=== PATIENT | female | born 1955 | race Caucasian/White ===

== ENCOUNTER 2024-08-12 11:36 | Inpatient (IN) | payer MEDICARE, BC, SELFPAY ==
--- NOTE | ~2024-08-12 | MR_ITS ---
EXAMINATION: MR BRAIN WITHOUT CONTRAST CLINICAL INFORMATION: Depression, recent cognitive changes,? MCI COMPARISON: None available. TECHNIQUE: MRI of the brain was obtained using routine sequences without contrast. FINDINGS: No acute intracranial hemorrhage or infarct. Scattered and confluent periventricular and deep white matter T2/FLAIR hyperintensities, nonspecific however commonly seen with small vessel ischemic disease. No midline shift or hydrocephalus. No acute extra-axial fluid collections. The osseous structures are unremarkable. The pituitary gland, pineal gland and remaining midline structures are unremarkable. No orbital pathology. The paranasal sinuses and mastoid air cells are clear. MR/MR head/brain wo con IMPRESSION: 1. No acute intracranial abnormalities. 2. Chronic microangiopathy. Electronically signed by: Dina Benton MD 08/13/2024 02:03 PM SEE
[2024-08-12 11:46] VITALS: BP 118/61; PULSE 73; RESP 16; TEMP 35.7; O2SAT 96; BMI 21.0
--- NOTE | 2024-08-12 11:54 | ECG_ITS ---
Test Reason : CLEARANCE Blood Pressure : / mmHG Vent. Rate : 063 BPM Atrial Rate : 063 BPM P-R Int : 144 ms QRS Dur : 078 ms QT Int : 368 ms P-R-T Axes : 078 036 037 degrees QTc Int : 376 ms Normal sinus rhythm Possible Left atrial enlargement Low voltage QRS Nonspecific T wave abnormality Abnormal ECG No previous ECGs available Referred By: Silvino Helm Electronically Signed By:Yung Cavazos
--- NOTE | 2024-08-12 11:57 | ED.GENADULT ---
HPI - General Adult General Chief complaint: Psychiatric Symptoms Stated complaint: depression Time Seen by Provider: 08/12/24 12:21 Source: patient Mode of arrival: ambulatory Limitations: no limitations History of Present Illness ED Provider: DR. Kohli HPI narrative: A 69-year-old female brought in by her family for further evaluation, patient normally lives home by herself in [facility] independently and functional, patient stated that taking care her own daily needs is becoming challenging now, no SI, no HI, no auditory or visual hallucination, patient is visiting her family for the holiday. 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 Patient is otherwise has no other complaints. Related Data Home Medications ?Medication ?Instructions ?Recorded ?Confirmed escitalopram oxalate 20 mg tablet 20 mg PO DAILY 08/12/24 08/12/24 levothyroxine 75 mcg tablet 75 mcg PO QAM 08/12/24 08/12/24 liothyronine 5 mcg tablet 5 mcg PO DAILY 08/12/24 08/12/24 trazodone 50 mg tablet 50 - 100 mg PO BEDTIME PRN Insomnia 08/12/24 08/12/24 Allergies Allergy/AdvReac Type Severity Reaction Status Date / Time No Known Allergies Allergy Verified 08/12/24 11:51 Review of Systems Review of Systems: All other systems are reviewed and are negative Constitutional: Reports as per HPI and Reports no additional constitutional complaints Eyes: Reports as per HPI and Reports no additional eye complaints Reports system reviewed and no additional complaints, except as documented Cardiovascular: Reports as per HPI and Reports no additional cardiovascular complaints Respiratory: Reports as per HPI and Reports no additional respiratory complaints Gastrointestinal: Reports as per HPI and Reports no additional gastrointestinal complaints Genitourinary: Reports no additional female genitourinary complaints Musculoskeletal: Reports no additional musculoskeletal complaints Skin/Breast: Reports system reviewed and no additional complaints, except as docu Psychiatric: Reports no additional psychiatric complaints Endocrine: Reports no additional endocrine complaints Hematologic/Lymphatic: Reports no additional hematologic/lymphatic complaints Allergic/Immunologic: Reports no additional allergic/immunologic complaints Reports system reviewed and no additional complaints, except as documented and Reports Abnormal speech present [facility] Social History Social History Household Members: None Housing: Apartment Do you presently have visiting nurse or other home services: No (Patient would like home services) Patient Tobacco Use Status: Never used Tobacco Smoked in Last 30 Days: No e-Cigarette/Vaping Use: Never Used Patient Interested in Nicotine Replacement: No Patient Given Instructions on How to Stop Smoking: No Second Hand Smoke Exposure: No Use of substances other than those prescribed or required for medical reasons: No Currently Displaying Signs/Symptoms of Drug Intoxication Withdrawal: No Any prior treatment program specific to substance use: No Have you been hit, kicked, punched, or otherwise hurt by someone within the past year? If so, by whom?: No Do you feel safe in your current relationship?: No Current Relationship Is there a partner from a previous relationship who is making you feel unsafe now?: No Are you made to feel afraid or neglected: No Advance Directives: No Advance Directives Information Provided: Yes Do you have thoughts of harming others: None Do you have a plan to hurt others: No Plan Recently lost weight without trying: Yes How much weight loss: 24-33 pounds Eating poorly because of decreased appetite: Yes Nutrition screen score: 6 Nutrition Risks: Poor intake 0-25% >4 days Patient : No : No Poor oral hygiene: Yes Physical Exam ED Vital Signs: Vital Signs - 24 hr 08/12/24 11:46 08/12/24 12:16 Temperature 96.3 F L Pulse Rate 73 Respiratory Rate 16 16 Blood Pressure 118/61 Pulse Oximetry 96 Oxygen Delivery Method Room Air BMI result Body Mass Index 21.0 Vital signs have been reviewed and appear to be correct. Blood pressure elevated. Heart rate normal. Respiratory rate normal. Temperature normal. Oxygen saturation normal. Appearance: Alert. Oriented X3. No acute distress. Head: Normal external exam. Normocephalic. Atraumatic. No Cano signs noted. No raccoon eyes noted Eyes: PERRLA. EOMI. Conjunctiva and sclera normal. Eyelids normal. ENT: TM's Normal. Pharynx normal. Uvula midline. Moist mucous membranes. No trismus noted. No drooling noted. No muffled voice noted. Neck: Normal inspection. Neck supple. FROM. No adenopathy. Thyroid Normal. No meningeal signs. No neck mass noted. CVS: Normal heart rate and rhythm. Heart sound normal. No murmurs noted. Pulses normal throughout. Respiratory: No respiratory distress. Painless inspiration. Breath sounds normal. No wheezes/rales/rhonchi noted. Chest nontender. No accessory muscle usage noted or decreased air movement noted. Abdomen: Soft and nontender. Bowel sounds normal in all 4 quadrants. No distention noted. No organomegaly noted. No visible injury noted. Back: No CVA tenderness. Full range of motion noted. Skin: Skin warm and dry. Normal skin color. Normal skin turgor. No rashes/lesions/lacerations noted. Extremities: No lower extremity edema. Extremities exhibit normal range of motion. Extremities nontender. Neuro: Oriented X 3. Cranial nerve exam: II-XII are grossly intact No motor deficit. No sensory deficit. Reflexes normal. Patient Orientation: Person, Place, Time and Situation, okay hygiene and grooming. Fair eye contact, attentive, no tics or tremors. Level of Consciousness: Awake, Appropriate and Alert Patient Behavior: Appropriate, Guarded, Cooperative and Anxious Mood Description: Constricted, Blunted and Apprehensive Affect Description: Constricted, Blunted and Apprehensive Patient Cognition Impaired: No Ability to Follow Directions: Excellent Speech Pattern: Clear, Appropriate and Spontaneous Speech, nonpressured, spontaneous with regular rate and rhythm, normal volume and prosody. No dysarthria. Memory Description: Intact, Immediate Intact and Short Term Intact Hallucinations: None Delusions: Not Present Thought Process: Intact Thought Content: positive for Intact, positive for Logical, denies Suicidal Ideation and denies Homicidal Ideation. Depressive Symptoms: Not present. Judgement and Insight: Limited but adequate. Course Course Course Narrative: RME: 69 yold female female history of depression anxiety presents to ED for inability to do basic life activities, memory loss, and worsening depression. Labs care team consult orders placed Reevaluation(s) Reevaluation #1: Medical cleared awaiting for care team evaluation, start the patient on physician observation. Time: 14:00 Medications Administered Generic Name Dose Route Start Last Admin Trade Name Freq PRN Reason Stop Dose Admin Escitalopram Oxalate 20 mg 08/13/24 09:00 08/13/24 08:15 Escitalopram Oxalate 20 Mg Tablet PO 20 mg DAILY ESTEBAN Administration Trazodone HCl 50 mg 08/12/24 21:49 08/12/24 22:07 Trazodone Hcl 50 Mg Tablet PO 50 mg BEDTIME [id number] PRN Administration Insomnia Discontinued Medications Generic Name Dose Route Start Last Admin Trade Name Nadia PRN Reason Stop Dose Admin Levothyroxine Sodium 75 mcg 08/12/24 16:00 08/13/24 05:54 Levothyroxine Sodium 75 Mcg Tablet PO 75 mcg DAILY@0600 ESTEBAN Administration Medical Decision Making Differential Diagnosis Differential Diagnoses: The differential diagnosis associated with the presentation includes (Electrolyte derangement, severe anemia, depression, SI, HI, hallucination, dementia.) Admission/Observation Consideration of admission/observation: Escalation of care including admission/observation considered Lab Data MDM Lab Attestation statement: I reviewed the patient's lab results. 08/12/24 12:10 08/12/24 12:10 Labs: Lab Results 08/12/24 08/12/24 Range/Units 12:10 12:37 WBC 7.8 (4.8-10.8) X10*3/uL RBC 4.74 (4.20-5.50) X10*6/uL Hgb 13.9 (12.0-16.0) g/dl Hct 40.6 (37.0-47.0) % MCV 85.7 (80.0-98.0) fL MCH 29.3 (27.0-33.0) pg MCHC 34.2 (31.0-35.0) g/dl RDW 12.3 (11.0-16.0) % Plt Count 323 (160-400) X10*3/uL MPV 10.4 (9.4-12.3) fL Immature Gran % (Auto) 0.4 (0.0-0.4) % Neut % (Auto) 60.8 (45-73) % Lymph % (Auto) 29.5 (20-40) % Stanley % (Auto) 8.3 (2-11) % Eos % (Auto) 0.4 (0-4) % Baso % (Auto) 0.6 (0-2) % Lymph # (Auto) 2.3 (1.2-4.9) X10*3/uL Stanley # (Auto) 0.7 (0.1-1.2) X10*3/uL Eos # (Auto) 0.0 (0.0-0.4) X10*3/uL Baso # (Auto) 0.1 (0.0-0.2) X10*3/uL Abs Immat Gran (auto) 0.03 (0.00-0.03) X10*3/uL Absolute Neuts (auto) 4.8 (2.0-8.3) x10*3/uL Absolute Nucleated RBC 0.000 (0.0-0.012) X10*3/uL Nucleated RBC % (auto) 0.0 (0.0-0.2) /100WBC Sodium 137 (135-145) mmol/L Potassium 3.8 (3.3-5.1) mmol/L Chloride 104 (96-108) mmol/L Carbon Dioxide 26 (22-29) mmol/L Anion Gap 11 L (12-20) BUN 12 (9-16) mg/dL Creatinine 0.74 (0.5-1.4) mg/dL Estim Creat Clear Calc 55.9 Estimated GFR > 60 Random Glucose 100 (60-115) mg/dL Calcium 8.8 (8.4-10.2) mg/dL Magnesium 2.1 (1.6-2.6) mg/dL Total Bilirubin 0.3 (0.0-1.0) mg/dL AST 19 (5-31) U/L ALT 15 (0-31) U/L Alkaline Phosphatase 72 (39-117) U/L Total Protein 6.3 L (6.5-8.0) g/dL Albumin 3.8 (3.5-5.0) g/dL TSH < 0.01 L (0.32-4.0) uIU/mL Free T4 1.36 (0.71-1.85) ng/dL Urine Color Yellow Urine Appearance Clear Urine pH 5.5 (5.0-9.0) Ur Specific [place] 1.010 (1.005-1.025) Urine Protein Negative (Neg-Trace) mg/dL Urine Glucose (UA) Negative (Negative) mg/dL Urine Ketones Negative (Negative) mg/dL Urine Blood Negative (Negative) Urine Nitrite Negative (Negative) Ur Leukocyte Esterase Trace H (Negative) Urine RBC 0-2 (0-2) /HPF Urine WBC 0-5 (0-5) /HPF Ur Squamous Epith Cells 0-2 (0-2) /HPF Urine Bacteria None Seen (None Seen) Hyaline Casts 0-2 (0-2) /LPF Urine Opiates Screen Not Detected (Not Detect) Ur Buprenorphine Scrn Not Detected (Not Detect) ng/mL Ur Oxycodone Screen Not Detected (Not Detect) ng/mL Urine Methadone Screen Not Detected (Not Detect) ng/mL Urine Fentanyl Screen Not Detected (Not Detect) Ur Barbiturates Screen Not Detected (Not Detect) Ur Phencyclidine Scrn Not Detected (Not Detect) Ur Amphetamines Screen Not Detected (Not Detect) U Benzodiazepines Scrn Not Detected (Not Detect) Urine Cocaine Screen Not Detected (Not Detect) U Marijuana (THC) Screen Not Detected (Not Detect) Ethyl Alcohol < 10 mg/dL Discharge Plan Discharge Clinical Impression: Adult failure to thrive Patient Disposition: Still a Patient Interventions: Admission Worksheet (ED) Last Done: 08/12/24 18:49 Discharge Date/Time: 08/12/24 18:49
--- OUTSIDE RECORDS SUMMARY | 2024-08-12 12:06 | XMS_ITS | Data Portability ---
Author Organization [place] - .[facility], [facility] Address [address] [place] [address] Assessment No assessment recorded. Plan of Treatment Reminders Order Date Submit Date Provider Last Modified By Organization Details Last Modified Time Details Appointments None dorota dStacey Lab rapid SARS CoV 2 Ag, QL IA, respira tory specime n 2021 022 [email or web address] [facility], [address], [place], [address], 2 08:22:14 culture , throat 2021 022 [facility], [address], [place], [address], 2 08:22:14 rapid strep group A, throat 2021 022 olchendler [facility] [place] [place], [address], [place], [address], 2 08:22:14 rapid SARS CoV 2 Ag, QL IA, respira tory specime n 2022 023 [email or web address] [place], [address], [place], [address], 3 17:59:26 influen za virus A + B + SARS-Co V-2 (COVID1 9) Ag panel, rapid IA, upper respira tory specime n 2022 023 [email or web address] [facility], [address] [place], [address], 3 17:04:10 rapid SARS CoV 2 Ag, QL IA, respira tory specime n 2022 023 [email or web address] [facility] [place], [address], [place], [address], 3 20:33:[address] referra l - List 2021 022 [email or web address] Not available 08:22:14 Procedures None recorde d. Surgeries None recorde d. Imaging None recorde d. Medication Orders Sudafed 12 Hour 120 mg tablet, extende d release 2021 023 [facility], [address] [place] [address], [id number], 3 20:20:06 cefdini r 300 mg capsule 2021 023 [facility], [address] [place] [address], [id number], 3 09:04:15 prednis one 20 mg tablet 2022 023 [email or web address] Not available 3 17:12:24 prednis one 20 mg tablet 2022 023 [facility], [address] [place] [address], [id number], 3 17:17:04 Patient TargetsNo targets recorded. Patient Instructions Encounter Date Encounter Id Patient Instructions Last Modified By Organization Details Last Modified Time 05/06/2022 [id number] A healthy lifestyle: care instructions [email or web address] Not available 05/08/2022 08:22:14 Acute Sinusitis: Care Instructions afua Not available 05/08/2022 08:22:14 Thank you for visiting [facility].There are two ways to view your lab results: : ? 1. ?? The [employer] jaya is available to all patients 18 and older in the Jaya Store and Google Play. First-time jaya users will need to create an account; please note you? ll need to select a login and password for the jaya versus just using your patient portal login credentials. Your lab results will be posted to the [employer] jaya as soon as they? re available. ? 2. ?? Via email , as soon as lab results are available. If you don? t receive an email within the estimated time frame, give our Aftercare team a call at [phone]. Sinusitis Sinusitis is an infection of the lining of the sinus cavities in your head. Sinusitis often follows a cold. It causes pain and pressure in your head and face. In most cases, sinusitis gets better on its own in 1 to 2 weeks. But some mild symptoms may last for several weeks. Sometimes antibiotics are needed. Follow-up care is a pennington part of your treatment and safety. Be sure to make and go to all appointments, and call your doctor if you are having problems. It's also a good idea to know your test results and keep a list of the medicines you take. How can you care for yourself at home? Take an borl-fyy-ejwhoye pain medicine, such as acetaminophen (Tylenol), ibuprofen (Advil, Motrin), or naproxen (Aleve). Read and follow all instructions on the label. If the doctor prescribed antibiotics, take them as directed. Do not stop taking them just because you feel better. You need to take the full course of antibiotics. Be careful when taking ykzl-vew-wocuzdf cold or flu medicines and Tylenol at the same time. Many of these medicines have acetaminophen, which is Tylenol. Read the labels to make sure that you are not taking more than the recommended dose. Too much acetaminophen (Tylenol) can be harmful. Breathe warm, moist air from a steamy shower, a hot bath, or a sink filled with hot water. Avoid cold, dry air. Using a humidifier in your home may help. Follow the directions for cleaning the machine. Use saline (saltwater) nasal washes to help keep your nasal passages open and wash out mucus and bacteria. You can buy saline nose drops at a grocery store or drugstore. Or you can make your own at home by adding 1 teaspoon of salt and 1 teaspoon of baking soda to 2 cups of distilled water. If you make your own, fill a bulb syringe with the solution, insert the tip into your nostril, and squeeze gently. Blow your nose. Put a hot, wet towel or a warm gel pack on your face 3 or 4 times a day for 5 to 10 minutes each time. Try a decongestant nasal spray like oxymetazoline (Afrin). Do not use it for more than 3 days in a row. Using it for more than 3 days can make your congestion worse. When should you call for help? Call your doctor now or seek immediate medical care if: You have new or worse swelling or redness in your face or around your eyes. You have a new or higher fever. Watch closely for changes in your health, and be sure to contact your doctor if: You have new or worse facial pain. The mucus from your nose becomes thicker (like pus) or has new blood in it. You are not getting better as expected. [email or web address] Not available 05/06/2022 13:08:11 01/20/2023 [id number] A healthy lifestyle: care instructions Not available 01/20/2023 21:32:39 Thank you for visiting [facility].There are two ways to view your lab results: : ? 1. ?? The [employer] jaya is available to all patients 18 and older in the Jaya Store and Google Play. First-time jaya users will need to create an account; please note you? ll need to select a login and password for the jaya versus just using your patient portal login credentials. Your lab results will be posted to the [employer] jaya as soon as they? re available. ? 2. ?? Via email , as soon as lab results are available. If you don? t receive an email within the estimated time frame, give our Aftercare team a call at [phone]. Bedbugs Your Care Instructions Bedbugs on foot of sleeping person, with close-up showing bedbugs and bites on skin Bedbugs are tiny bugs that feed on blood from animals or people. They have that name because they like to hide in bedding and mattresses. Bedbugs rarely spread disease to people. But itching from the bites can be so bad that you may scratch hard enough to break the skin. That can lead to infection. The bites can also cause an allergic reaction in some people. The bugs can spread into cracks and crevices in the room and lay their eggs in anything that is in the room, including clothing and furniture. This makes them very hard to kill. Getting rid of bedbugs The best way to get rid of bedbugs is to call a professional insect control company. They use special pesticides and other equipment to kill the bugs and their eggs. If you decide to buy your own pesticide, check the label. Make sure it says that it is for bedbugs. Be sure to follow the directions carefully. You may have to use the pesticide more than once. Vacuum or launder everything in the room that might hide the bugs. Washing and then drying items in a dryer on a hot setting works to kill bedbugs in clothing and linens. Turn the dryer to the hottest setting that the fabric can handle. After your mattress has been cleared of bedbugs, you can buy a special mattress cover that is made to keep bedbugs out of your mattress. Follow-up care is a pennington part of your treatment and safety. Be sure to make and go to all appointments, and call your doctor if you are having problems. It's also a good idea to know your test results and keep a list of the medicines you take. How can you care for yourself at home? Wash the bites with soap to lower the chance of infection. Try not to scratch. Use calamine lotion or an anti-itch cream to stop the itching. You can also hold an oatmeal-soaked washcloth on the itchy area for 15 minutes. You can buy an oatmeal powder, such as Aveeno Colloidal Oatmeal, in drugstores. Use an ice pack to stop the swelling. When should you call for help? Call your doctor now or seek immediate medical care if: You have signs of infection, such as: Increased pain, swelling, warmth, or redness. Red streaks leading from a bite area. Pus draining from a bite area. A fever. Watch closely for changes in your health, and be sure to contact your doctor if: Anyone else in your family has itching. You do not get better as expected. [email or web address] Not available 01/20/2023 20:37:45 03/31/2023 [id number] A healthy lifestyle: care instructions Not available 03/31/2023 17:59:26 Thank you for visiting [facility]. We may be calling you to review your lab results or schedule a follow up appointment. The call will be through an automated system which asks you to press a pennington to speak with one of our agents. Please be on the lookout for this call and listen to the message in its entirety. You may also view your lab results using the [employer] jaya, available in the Jaya Store and Google Play. First-time jaya users will need to create an account; please note you? ll need to select a login and password for the jaya versus just using your patient portal login. Your lab results will be posted to the [employer] jaya as soon as they? re available. If you have any questions regarding your visit, our Aftercare department can be reached at [phone]. Our hours are Monday ? Monday from 8 am ? 11 pm or Monday/Monday from 9a ? 8p. Test Name: SARS-CoV-2 rapid ag (COVID-19); Result: NEGATIVE Your test today for COVID-19 infection was NEGATIVE. The next steps in your care depend on your whether you are having symptoms or had an exposure to Covid-19: NOTE: an EXPOSURE is defined as spending more than 10 minutes (within a 24 period) within an enclosed space with an individual who tested positive for Covid-19 If NO EXPOSURE to COVID-19: If you are ASYMPTOMATIC and NO KNOWN EXPOSURE: You are cleared to go back to work or school since you have no symptoms suggestive of COVID-19, have not had a high risk exposure to a person known to have COVID-19, and your Rapid Covid Test result is negative. If you have SYMPTOMS with NO KNOWN EXPOSURE to COVID-19: Your medical provider may have sent a second test to an outside lab to confirm that today s test was truly negative. The results of this second test (PCR technique) will be published to your [facility] patient portal ([email or web address]) as soon as they are available (3-5 days on average). For now, we ask that you go home under strict QUARANTINE, monitor for any worsening symptoms and return for re-evaluation if your symptoms become severe. If HIGH-RISK EXPOSURE: FULLY VACCINATED: If you are fully vaccinated and boosted (with the booster at least 2 weeks before the first date of exposure) or you are not yet eligible for a booster, NO QUARANTINE IS REQUIRED. You should wear a well-fitting mask while aroundothers for 10 days after the last date of exposure. NOT FULLY VACCINATED (including vaccinated and eligible for a booster but not yet boosted): You should QUARANTINE for 5 DAYS, then wear a well-fitting mask while around others for an additional 5 days. It is recommended that you TEST at DAY 5 if possible (either PCR or Rapid Antigen) If you DEVELOP SYMPTOMS: QUARANTINE and SEEK TESTING. In this situation, quarantine would end when the test is negative. If testing is not done, isolate according to the guidance above (Vaccinated vs NOT-Vaccinated). Be Safe MONITOR YOUR SYMPTOMS : If at any point your symptoms become worse or severe such as fever that will not improve with medicine, shortness of breath, chest pain or discomfort, abdominal pain, inability to tolerate eating and drinking, please return to [facility] or go to the closest Emergency Room. QUARANTINE INFO : If you were asked to quarantine yourself, please stay in your own part of the house away from everyone else, using your own bedroom and bathroom, if possible. If you need to be in a common area ensure that both you and anyone else around you is wearing a mask.You will be considered free of contagious COVID-19 10 days after your symptoms began ? if your symptoms have significantly improved and you have not had a fever for at least 24 hours (without using fever reducing medications like acetaminophen or ibuprofen). Please continue to follow all personal safety practices when outside the home, including (a) wearing a nose and mouth covering at all times when around people outside of your household, (b) social distancing, (c) hand hygiene, and (d) avoidance of contact with people with known or possible COVID-19. Not available 03/31/2023 17:39:35 05/23/2023 [id number] A healthy lifestyle: care instructions Not available 05/23/2023 17:04:10 Thank you for visiting [facility]. We may be calling you to review your lab results or schedule a follow up appointment. The call will be through an automated system which asks you to press a pennington to speak with one of our agents. Please be on the lookout for this call and listen to the message in its entirety. You may also view your lab results using the [employer] jaya, available in the Jaya Store and [employer] Play. First-time jaya users will need to create an account; please note you? ll need to select a login and password for the jaya versus just using your patient portal login. Your lab results will be posted to the [employer] jaya as soon as they? re available. If you have any questions regarding your visit, our Aftercare department can be reached at [phone]. Our hours are Monday ? Monday from 8 am ? 11 pm or Monday/Monday from 9a ? 8p. Test Name: SARS-CoV-2 rapid ag (COVID-19) Result: POSITIVE ISOLATE for 5 days from the onset of symptom. (If you are asymptomatic, you should Isolate for 5 days from the day of the positive test result.) AFTER 5 days, if your respiratory symptoms (ie. cough, runny nose, etc) are improving AND you are fever-free for 24 hours (without using fever reducing medications like acetaminophen or ibuprofen), isolation ends and you should wear a well fitting mask while around others for an additional 5 days . If you are UNABLE TO WEAR a well-fitting mask for 5 days: you should continue ISOLATION for 5 more days (total = 10 days isolation) If you are IMMUNOCOMPROMISED (moderately to severely): you should continue ISOLATION for 5 more days (total = 10 days isolation) HEALTHCARE WORKERS: Vaccinated Healthcare Workers who test POSITIVE for COVID-19 may return to work 5 days after onset of symptoms (Asymptomatic HC workers with a positive test may use 5 days from date of test) provided their symptoms are improving and they? re fever free for >24 hours. Consult your employer? s EHS team. Unvaccinated Healthcare Workers who test POSITIVE for COVID-19 may return to work 7 days after onset of symptoms (Asymptomatic HC workers with a positive test may use 7 days from date of test) provided their symptoms are improving and they? re fever free for >24 hours. Consult your employer? s EHS team Consult your employer? s EHS team: Your health care institution may vary on quarantine requirements; they may also require testing prior to your returning to work. Be Safe MONITOR YOUR SYMPTOMS: If at any point your symptoms become worse or severe such as fever that will not improve with medicine, shortness of breath, chest pain or discomfort, abdominal pain, inability to tolerate eating and drinking, please return to [facility] or go to the closest Emergency Room. QUARANTINE INFO: If you were asked to quarantine yourself, please stay in your own part of the house away from everyone else, using your own bedroom and bathroom, if possible. If you need to be in a common area ensure that both you and anyone else around you is wearing a mask.You will be considered free of contagious COVID-19 10 days after your symptoms began ? if your symptoms have significantly improved and you have not had a fever for at least 24 hours (without using fever reducing medications like acetaminophen or ibuprofen). REPEAT TESTING: It is generally NOT required (or even recommended) to get repeat testing for COVID-19 until at least 90 days after receiving a positive test result. (Consult your employer/school for their specific requirements). If you are age 18 to 65 and have recently tested positive for SARS-CoV-19, you can help in the fight against COVID-19! Antibodies from your blood can be given to patients with COVID-19 to help save lives. Sign up using the link below. If you are eligible, a member of our team will contact you to schedule an appointment. Please continue to follow all personal safety practices when outside the home, including (a) wearing a nose and mouth covering at all times when around people outside of your household, (b) social distancing, (c) hand hygiene, and (d) avoidance of contact with people with known or possible COVID-19. Not available 05/23/2023 15:25:57 05/29/2023 [id number] A healthy lifestyle: care instructions [email or web address] Not available 05/29/2023 20:33:28 Thank you for visiting [facility]. We may be calling you to review your lab results or schedule a follow up appointment. The call will be through an automated system which asks you to press a pennington to speak with one of our agents. Please be on the lookout for this call and listen to the message in its entirety. You may also view your lab results using the [employer] jaya, available in the Jaya Store and [employer] Play. First-time jaya users will need to create an account; please note you? ll need to select a login and password for the jyaa versus just using your patient portal login. Your lab results will be posted to the [employer] jaya as soon as they? re available. If you have any questions regarding your visit, our Aftercare department can be reached at [phone]. Our hours are Monday ? Monday from 8 am ? 11 pm or Monday/Monday from 9a ? 8p. Test Name: SARS-CoV-2 rapid ag (COVID-19); Result: NEGATIVE Your test today for COVID-19 infection was NEGATIVE. The next steps in your care depend on your whether you are having symptoms or had an exposure to Covid-19: NOTE: an EXPOSURE is defined as spending more than 10 minutes (within a 24 period) within an enclosed space with an individual who tested positive for Covid-19 If NO EXPOSURE to COVID-19: If you are ASYMPTOMATIC and NO KNOWN EXPOSURE: You are cleared to go back to work or school since you have no symptoms suggestive of COVID-19, have not had a high risk exposure to a person known to have COVID-19, and your Rapid Covid Test result is negative. If you have SYMPTOMS with NO KNOWN EXPOSURE to COVID-19: Your medical provider may have sent a second test to an outside lab to confirm that today s test was truly negative. The results of this second test (PCR technique) will be published to your [facility] patient portal ([email or web address]) as soon as they are available (3-5 days on average). For now, we ask that you go home under strict QUARANTINE, monitor for any worsening symptoms and return for re-evaluation if your symptoms become severe. If HIGH-RISK EXPOSURE: FULLY VACCINATED: If you are fully vaccinated and boosted (with the booster at least 2 weeks before the first date of exposure) or you are not yet eligible for a booster, NO QUARANTINE IS REQUIRED. You should wear a well-fitting mask while aroundothers for 10 days after the last date of exposure. NOT FULLY VACCINATED (including vaccinated and eligible for a booster but not yet boosted): You should QUARANTINE for 5 DAYS, then wear a well-fitting mask while around others for an additional 5 days. It is recommended that you TEST at DAY 5 if possible (either PCR or Rapid Antigen) If you DEVELOP SYMPTOMS: QUARANTINE and SEEK TESTING. In this situation, quarantine would end when the test is negative. If testing is not done, isolate according to the guidance above (Vaccinated vs NOT-Vaccinated). Be Safe MONITOR YOUR SYMPTOMS : If at any point your symptoms become worse or severe such as fever that will not improve with medicine, shortness of breath, chest pain or discomfort, abdominal pain, inability to tolerate eating and drinking, please return to [facility] or go to the closest Emergency Room. QUARANTINE INFO : If you were asked to quarantine yourself, please stay in your own part of the house away from everyone else, using your own bedroom and bathroom, if possible. If you need to be in a common area ensure that both you and anyone else around you is wearing a mask.You will be considered free of contagious COVID-19 10 days after your symptoms began ? if your symptoms have significantly improved and you have not had a fever for at least 24 hours (without using fever reducing medications like acetaminophen or ibuprofen). Please continue to follow all personal safety practices when outside the home, including (a) wearing a nose and mouth covering at all times when around people outside of your household, (b) social distancing, (c) hand hygiene, and (d) avoidance of contact with people with known or possible COVID-19. 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 N Cultu re Obser vatio n Ruby l upper Respi rator y shashank isola abilio. No Beta Hemol ytic Strep isola abilio. Not Available [facility] [address], [place], [address], 05/08/2022 08:13:16 05/06/20 22 05/06/2022 rapid SARS CoV 2 Ag, QL IA, respi rator y speci men Rapid COVID-19 Antigen (Internal Control Positive) Negati ve Not Available [facility] [place] [address], [place], [address], 05/06/2022 13:08:36 05/06/20 22 05/06/2022 rapid strep group A, throa t Group A Strep / internal control positive NEGATI VE (inter nal contro l positi ve) Not Available [facility] [place] [address], [place], [address], 05/06/2022 13:08:40 03/31/20 23 03/31/2023 rapid SARS CoV 2 Ag, QL IA, respi rator y speci men Rapid COVID-19 Antigen (Internal Control Positive) Negati ve Not Available [facility] [place] [address], [place], [address], 03/31/2023 17:23:31 05/23/20 23 05/23/2023 influ chay virus A + B + SARS- CoV-2 (COVI D19) Ag panel , rapid IA, upper respi rator y speci men Flu A Negati ve Not Available [facility] [address], [place], [address], 05/23/2023 15:25:34 05/23/20 23 05/23/2023 influ chay virus A + B + SARS- CoV-2 (COVI D19) Ag panel , rapid IA, upper respi rator y speci men Flu B Negati ve Not Available [facility] [address], [place], [address], 05/23/2023 15:25:34 05/23/20 23 05/23/2023 influ chay virus A + B + SARS- CoV-2 (COVI D19) Ag panel , rapid IA, upper respi rator y speci men Covid-19 Antigen Positi ve Not Available [facility] [address], [place], [address], 05/23/2023 15:25:34 05/29/20 23 05/29/2023 rapid SARS CoV 2 Ag, QL IA, respi rator y speci men Rapid COVID-19 Antigen (Internal Control Positive) Negati ve Not Available [address] [place], [address], 05/29/2023 14:49:04 Result Notes None recorded. Problems Name Problem SNOMED Code Status Onset Date Resolution Date Notes Provider Name and Address Organization Details Recorded Time Hypothyroidism 27503366 Active 2021 NICOLE aMrcial - .[facility] 12:52:03 Problem Notes None recorded. Medical Equipment None Reported. Allergies No known drug allergies Medications Name Sig Start Date Stop Date Status Note LastModified by Organization Details LastModified Time prednisone 20 mg tablet Take 2 tablets every day by oral route for 4 days. 03/31 completed Not Available Not Available Not Available cefdinir 300 mg capsule Take 1 capsule twice a day by oral route for 10 days. 01/20 completed Not Available Not Available Not Available Sudafed 12 Hour 120 mg tablet,exten ded release Take 1 tablet twice a day by oral route as needed for 5 days. 01/20 completed Not Available Not Available Not Available Zoloft 03/31 completed Not Available Not Available Not Available levothyroxin e active Not Available Not Available Not Available Paxil 03/31 completed Not Available Not Available Not Available Wellbutrin SR active Not Available Not Available Not Available atomoxetine active Not Available Not A vailable Not Available Vitals Date Recorded Body height Body mass index (BMI) Body weight Heart rate Body temperature Respiratory rate Oxygen saturation Oxygen saturation in Arterial blood by Pulse oximetry Systolic blood pressure Diastolic blood pressure Provider Name and Address Organization Details Last Updated DateTime 2 157.48 cm 24.7 kg/m2 14575.9 7 g 78 /min 97.1 [degF] 16 /min 98 % 98 % 101 mm[Hg] 69 mm[Hg] Shahida Pérez [place] - [facility] 2 12:55:41 Date Recorded Body height Body mass index (BMI) Body weight Heart rate Body temperature Respiratory rate Oxygen saturation Oxygen saturation in Arterial blood by Pulse oximetry Systolic blood pressure Diastolic blood pressure Provider Name and Address Organization Details Last Updated DateTime 3 157.48 cm 23.8 kg/m2 40348.0 1 g 90 /min 97.8 [degF] 16 /min 99 % 99 % 111 mm[Hg] 71 mm[Hg] Lara Maurice [facility] 3 20:22:54 Date Recorded Body height Body mass index (BMI) Body weight Heart rate Body temperature Respiratory rate Oxygen saturation Oxygen saturation in Arterial blood by Pulse oximetry Systolic blood pressure Diastolic blood pressure Provider Name and Address Organization Details Last Updated DateTime 3 157.48 cm 24.7 kg/m2 91168.9 7 g 92 /min 98 [degF] 16 /min 98 % 98 % 105 mm[Hg] 73 mm[Hg] [facility] 17:13:00 Date Recorded Body height Oxygen saturation Oxygen saturation in Arterial blood by Pulse oximetry Body mass index (BMI) Body weight Heart rate Body temperature Respiratory rate Provider Name and Address Organization Details Last Updated DateTime 3 157.48 cm 97 % 97 % 24.7 kg/m2 28069.9 7 g 85 /min 98 [degF] 16 /min [facility] 3 15:18:17 Date Recorded Body height Body mass index (BMI) Body weight Heart rate Body temperature Respiratory rate Systolic blood pressure Diastolic blood pressure Provider Name and Address Organization Details Last Updated DateTime 3 157.48 cm 24.7 kg/m2 22616.9 7 g 78 /min 98 [degF] 16 /min 112 mm[Hg] 77 mm[Hg] Jana Parks [place] - [facility] 3 14:48:48 Social History Question Answer Notes LastModified by Organizat ion Details LastModified Time Tobacco Smoking Status Never Smoker Shahida dooley [place] - [facility] 05/06/2022 12:52:49 RISK LEVEL - Segmentation Level 1 - Healthy [id number] Information not available 05/26/2022 Sex: Unknown Functional Status None recorded. Mental Status None recorded. Family History Relationship Description Onset Age of this Age Resolved Age Notes LastModified by Organization Details LastModified Time Father Diabetes mellitus [email or web address] Not available 2021 12:52:37 Father Hypertensive disorder zbwabi Not available 2021 12:52:46 Medical History No medical history recorded. Gynecological HistoryNo gynecological history recorded. Obstetrics History GPAL:G 0 P 0 0 0 0 Past Encounters Encounter ID Performer Location Encounter Start Date Encounter Closed Date Diagnosis/Indication Diagnosis SNOMED-CT Code Diagnosis ICD10 Code [id number] Nik HINES [facility] [place] [id number] [place] [address] 05/06/2022 12:39:35 05/06/2022 13:09:26 Acute sinusitis 09378138 J01.90 Exposure t o SARS-CoV-2 339668144 Z20.822 [id number] Abner Ho [facility] [place] [address] [place] [address] 01/20/2023 20:11:34 01/20/2023 20:43:03 Bite of bed bug 525447076 W57.XXXA [id number] Abner Ho [facility] [place] [address] [place] [address] 03/31/2023 17:03:07 03/31/2023 17:36:15 Exposure to SARS-CoV-2 037310546 Z20.822 [id number] Abner Ho [facility] [address] [place] [phone] 05/23/2023 15:01:51 05/23/2023 15:27:02 COVID-19 577384339 U07.1 [id number] Magno Zhou MD [facility]_ [address] [address] 05/29/2023 14:11:50 05/29/2023 14:51:40 Exposure to SARS-CoV-2 425180089 Z20.822 Health Concerns Section Related Observation LastModified by Organization Detai ls LastModified Time None Recorded Concern Status LastModified by Organization Details LastModified Time None Recorded Advance Directives Directive None Recorded Payers Encounter Date Sequence Insurance Name Policy Number Policy Hernandez Covered Member ID Hernandez Member ID Guarantor Name 05/06/2022 1 [place] Mary Montoya [id number] Mary Montoya 05/06/2022 2 [id number] Montoya [id number] Mary Montoya 01/20/2023 1 [place] Mary Montoya [id number] Mary Montoya 01/20/2023 2 [id number] Mary Motnoya [id number] Mary Montoya 03/31/2023 1 [place] Mary Montoya [id number] Mary Montoya 03/31/2023 2 [id number] Mary Montoya [id number] Mary Montoya 05/23/2023 1 [place] Mary Montoya [id number] Mary Montoya 05/23/2023 2 [id number] Mary Montoya [id number] Mary Montoya 05/29/2023 1 [place] Mary Montoya [id number] Mary Montoya Notes Date Note Type Note Provider Name a hi Address Organization Details Recorded Time 05/06/2022 text/html COVID-19 VISIT - cmdReported bypatient.Patient presents forCOVID-19 VISIT Pertinent findings:No fever; NO body aches; NO nasal symptoms; No cough; No CP; No leg swelling; No neurologic deficits; No SOB;(+) sore throat COVID vaccination status:(+) COVID Vaccination Pfizer and HAS been > 2 weeks since the FINAL scheduled doseSore throat - cmdReported bypatient.Patient presents with:Sore throat complaint which began 2-3 days ago Pertinent findings:No fever; No painful swallowing; No nasal congestion; No sinus congestion; No ear complaints; No eye complaints; No cough; No shortness of breath; No exposure to strep;(+) swollen glands Nik Ordonez [address] [place] [address], [phone] [place] [address] - .[facility] 05/06/2022 13:20:46 01/20/2023 text/html Eye Complaint - cmdReported bypatient.Patient presents with:bilateral Eye complaint which began a few months ago Pertinent findings:No eye pain; No eye redness; No eye discharge; No contact lens use; No photophobia; No eye trauma; No vision change; No eyelid swelling; No fever; No cough; No ear symptoms; No throat symptoms; No nasal symptomsNotes:Pt c/o BL eye lid irritation that started several month ago, pt can't recall since when; mentions increased irritation after rash and scalp itchiness started. Pt denies vision changes, eye discharge, fever, trauma.Scalp complaint - cmdReported bypatient.Patient presents with:Scalp complaint which began one week ago Pertinent findings:No headache; No loss of consciousness; No confusion; No extremity numbness or weakness; No vision change; No vomiting; No nosebleeds; No tooth pain, fracture, or avulsion; No difficulty opening mouthNotes:Pt c/o scalp itchiness that started 7 days ago, reports 3 application of OTC medication for Lice infestation. Pt mentions noticing rash over her arms and legs w/characteristics of bed bug bites. NICOLE Akins - .[facility] 01/20/2023 20:52:50 03/31/2023 text/html COVID-19 VISIT - cmdReported bypatient.Patient presents forCOVID-19 VISIT Pertinent findings:No fever; NO body aches; NO nasal symptoms; No cough; No CP; No leg swelling; No neurologic deficits; No SOB;(+) sore throat COVID vaccination status:(+) COVID Vaccination Pfizer;Received BOOSTER PfizerNotes:Pt was exposed to Covid 4-5 days ago.c/o scratchy throat for 1 day.Denies cough, body aches, fever, chills, nasal congestion, cough, leg swelling, SOB. NICOLE Akins - .[facility] 03/31/2023 17:50:34 05/23/2023 text/html Cough - cmdReported bypatient.Patient presents with:Cough which began 4-6 days ago Pertinent findings:No fever; No body aches; No bloody sputum; No chest pain; No shortness of breath; No wheezing; No history of asthma; No history of smoking; No ear complaints; No eye complaints;(+) productive sputumNotes:Pt presents with productive cough, headache, sore throat, hoarseness and nasal congestion for 4 days.Denies chest pain, SOB, wheezing, fever, body aches, chills.OTC: Dayquil, Coricidin. NICOLE Akins - .[facility] 05/23/2023 15:31:25 05/29/2023 text/html COVID-19 VISIT - cmdReported bypatient.Patient presents forCOVID-19 VISIT Pertinent findings:No symptoms; No fever; NO body aches; NO sore throat; NO nasal symptoms; No cough; No CP; No leg swelling; No neurologic deficits; No SOB COVID vaccination status:(+) COVID Vaccination Pfizer and HAS been > 2 weeks since the FINAL scheduled dose;Received BOOSTER PfizerNotes:Asymp tomatic. Pt presents for retesting. Pt tested positive on 05/21. Magno Zhou MD [address] [place] [address],[address], [place], [phone], [facility] - .[facility] 05/29/2023 15:07:02 OBGyn Episode No OBEpisode recorded.
[2024-08-12 12:14] LABS: MANUAL DIFF FLAG NO
[2024-08-12 12:16] VITALS: RESP 16
[2024-08-12 12:16] LABS: Basophils Absolute Auto 0.1 X10*3/uL (0.0-0.2); Basophils Percent Auto 0.6 % (0-2); Eosinophils Percent Auto 0.4 % (0-4); Hematocrit 40.6 % (37.0-47.0); Hemoglobin 13.9 g/dl (12.0-16.0); Imm Gran Abs Auto 0.03 X10*3/uL (0.00-0.03); Imm Gran Pct Auto 0.4 % (0.0-0.4); Lymphocytes Absolute Auto 2.3 X10*3/uL (1.2-4.9); Lymphocytes Percent Auto 29.5 % (20-40); Mean Corpuscular HGB Conc 34.2 g/dl (31.0-35.0); Mean Corpuscular Hemoglobin 29.3 pg (27.0-33.0); Mean Corpuscular Volume 85.7 fL (80.0-98.0); Mean Platelet Volume 10.4 fL (9.4-12.3); Monocytes Absolute Auto 0.7 X10*3/uL (0.1-1.2); Monocytes Percent Auto 8.3 % (2-11); Neutrophils Absolute Auto 4.8 x10*3/uL (2.0-8.3); Neutrophils Percent Auto 60.8 % (45-73); Platelet Count 323 X10*3/uL (160-400); Red Blood Count 4.74 X10*6/uL (4.20-5.50); Red Cell Distribution Width 12.3 % (11.0-16.0); White Blood Count 7.8 X10*3/uL (4.8-10.8)
--- NOTE | 2024-08-12 12:18 | PC.NURSE ---
Mary comes to the ED today reporting worsening memory problems, inability to complete ADLs as efficiently as before and overall a mental decline. She reports she no longer remembers to buy food, she cannot prepare food as she used to, she struggles with learning new things and cannot remember basic day to day things. Patient denies SI/HI/AH/VH. Calm and cooperative, help seeking at this time
[2024-08-12 12:48] LABS: Appearance Urine Clear; Color Urine Yellow; Glucose Urine UA Negative (Negative); Leukocyte Esterase Urine Trace (Negative); Nitrite Urine Negative (Negative); PH 5.5 (5.0-9.0); UMIC TRIGGER UACC YES; Urine Blood Negative (Negative); Urine Ketones Negative (Negative); Urine Protein Negative (Neg-Trace)
[2024-08-12 12:54] LABS: Bacteria Urine None Seen (None Seen); Hyaline Casts Urine 0-2 /LPF (0-2); RBC Urine 0-2 /HPF (0-2); Squamous Epithelial Cell Urine 0-2 /HPF (0-2); WBC Urine 0-5 /HPF (0-5)
[2024-08-12 13:00] LABS: Amphetamine Screen Urine Not Detected (Not Detect); Barbiturates, Urine Not Detected (Not Detect); Benzodiazepines Screen Urine Not Detected (Not Detect); Buprenorphine Scr Not Detected (Not Detect); Cannabinoid Screen Urine Not Detected (Not Detect); Cocaine Screen Urine Not Detected (Not Detect); Fentanyl, urine Not Detected (Not Detect); Methadone Screen, Urine Not Detected (Not Detect); Opiate Screen Urine Not Detected (Not Detect); Oxycodone Screen Urine Not Detected (Not Detect); Phencyclidine Screen Urine Not Detected (Not Detect)
[2024-08-12 13:05] LABS: TSH reflex Free T4 < 0.01 uIU/mL (0.32-4.0)
[2024-08-12 13:27] LABS: Albumin Level 3.8 g/dL (3.5-5.0); Anion Gap 11 (12-20); Aspartate Amino Transferase 19 U/L (5-31); Bilirubin Total 0.3 mg/dL (0.0-1.0); Blood Urea Nitrogen 12 mg/dL (9-16); Calcium 8.8 mg/dL (8.4-10.2); Carbon Dioxide 26 mmol/L (22-29); Chloride 104 mmol/L (96-108); Creatinine Clr Calc Pharmacy 55.9; Estimated Glomerular Filt Rate > 60; Ethanol < 10 mg/dL; Glucose Random 100 mg/dL (60-115); Magnesium 2.1 mg/dL (1.6-2.6); Potassium 3.8 mmol/L (3.3-5.1); Sodium 137 mmol/L (135-145); Total Protein 6.3 g/dL (6.5-8.0)
--- NOTE | 2024-08-12 13:45 | MHC.CARE ---
Pt meets the criteria for IPLOC at this time. Section 12a in chart. Provider in agreement.
[2024-08-12 13:48] LABS: Free T4 (Free Thyroxine) 1.36 ng/dL (0.71-1.85)
[2024-08-12 14:42] LABS: Alanine Aminotransferase 15 U/L (0-31); Alkaline Phosphatase 72 U/L (39-117)
--- NOTE | 2024-08-12 16:39 | PHA.MEDREC ---
Pharmacy Consult ? Medication Reconciliation Pharmacy has reviewed the medication reconciliation completed by nursing. When asked, Patient was unaware if she was on lamotrigine and mirtazpine.
[2024-08-12 19:32] VITALS: BP 138/60; PULSE 74; RESP 16; TEMP 36.6; O2SAT 96
[2024-08-12 19:33] VITALS: BMI 21.0
--- NOTE | 2024-08-12 19:38 | PC.NURSE ---
Mary arrived on unit via wheelchair from [facility]. She signed a CV while in the ED. She is oriented x4. She cooperated with skin and safety check. Her skin is unremarkable except for generalized dryness. She is tearful at times during interaction.
[2024-08-12] MEDS: traZODone HCL 50 MG TABLET PO (22:07)
[2024-08-13] MEDS: Levothyroxine Sodium 75 MCG TABLET PO (05:54)
[2024-08-13 07:49] VITALS: RESP 16
[2024-08-13] MEDS: Escitalopram Oxalate 20 MG TABLET PO (08:15)
[2024-08-13 08:22] LABS: Estimated Average Glucose 100 mg/dL; Hemoglobin A1C 115.0113 umol/L; Hemoglobin A1c % 5.1 % (<6.0); Total Hemoglobin (HGBA1C) 3597.9091 umol/L
[2024-08-13 08:40] LABS: Cholesterol 169 mg/dL (<200); HDL Cholesterol 48 mg/dL (>40); LDL Cholesterol Calculated 104 mg/dL (<100); Triglycerides 85 mg/dL (<150)
[2024-08-13 09:13] LABS: Folate 5.2 ng/mL (> or = 4.0); Vitamin B12 437 pg/mL (200-900)
[2024-08-13 09:22] LABS: Free T4 (Free Thyroxine) 1.46 ng/dL (0.71-1.85); Thyroid Stimulating Hormone < 0.01 uIU/mL (0.32-4.0)
--- NOTE | 2024-08-13 13:10 | P.HPPS_ITS ---
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 Pt reports depression, I don't do much, lie down, read a bit, I am 10 beats behind in technology , My sense of time is off, I feel like I am not in my body, I am oversensitive to hot and cold, appetite is poor, I used to keep going-working and watching series shows, I cannot do that any longer. Reports she is isolating from friends, fears driving, friends help her with shopping, planning, cleaning. She fears the subway and believes she is unable to live safely in [place] any longer; Reports first episode of depression in college, last year, daughter made a suicide attempt and pt's sx increased, I don't think I have recovered. Past Psychiatric History: IP: One a few years ago. 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 Substance History: no Trauma History: loss of mother suicide attempt of daughter Diagnostics Vital Signs (24Hr): Vital Signs - 24 hr 08/12/24 19:32 08/13/24 07:49 Temperature 98 F Pulse Rate 74 Respiratory Rate 16 16 Blood Pressure 138/60 Pulse Oximetry 96 Oxygen Delivery Method Room Air BMI result Body Mass Index 21.0 Labs 08/12/24 12:10 08/12/24 12:10 Labs: Laboratory Results - last 48 hr 08/12/24 08/12/24 08/13/24 12:10 12:37 07:56 WBC 7.8 RBC 4.74 Hgb 13.9 Hct 40.6 MCV 85.7 MCH 29.3 MCHC 34.2 RDW 12.3 Plt Count 323 MPV 10.4 Immature Gran % (Auto) 0.4 Neut % (Auto) 60.8 Lymph % (Auto) 29.5 [place] % (Auto) 8.3 Eos % (Auto) 0.4 Baso % (Auto) 0.6 Lymph # (Auto) 2.3 [place] # (Auto) 0.7 Eos # (Auto) 0.0 Baso # (Auto) 0.1 Abs Immat Gran (auto) 0.03 Absolute Neuts (auto) 4.8 Absolute Nucleated RBC 0.000 Nucleated RBC % (auto) 0.0 Sodium 137 Potassium 3.8 Chloride 104 Carbon Dioxide 26 Anion Gap 11 L BUN 12 Creatinine 0.74 Estim Creat Clear Calc 55.9 Estimated GFR > 60 Random Glucose 100 Estimat Average Glucose 100 Hemoglobin A1c % 5.1 Calcium 8.8 Magnesium 2.1 2.0 Total Bilirubin 0.3 AST 19 ALT 15 Alkaline Phosphatase 72 Total Protein 6.3 L Albumin 3.8 Triglycerides 85 Cholesterol 169 LDL Cholesterol, Calc 104 H HDL Cholesterol 48 Vitamin B12 437 Folate 5.2 TSH < 0.01 L < 0.01 L Free T4 1.36 1.46 Urine Color Yellow Urine Appearance Clear Urine pH 5.5 Ur Specific [place] 1.010 Urine Protein Negative Urine Glucose (UA) Negative Urine Ketones Negative Urine Blood Negative Urine Nitrite Negative Ur Leukocyte Esterase Trace H Urine RBC 0-2 Urine WBC 0-5 Ur Squamous Epith Cells 0-2 Urine Bacteria None Seen Hyaline Casts 0-2 Urine Opiates Screen Not Detected Ur Buprenorphine Scrn Not Detected Ur Oxycodone Screen Not Detected Urine Methadone Screen Not Detected Urine Fentanyl Screen Not Detected Ur Barbiturates Screen Not Detected Ur Phencyclidine Scrn Not Detected Ur Amphetamines Screen Not Detected U Benzodiazepines Scrn Not Detected Urine Cocaine Screen Not Detected U Marijuana (THC) Screen Not Detected Ethyl Alcohol < 10 Meds/Allergies Meds Home Medications ?Medication ?Instructions ?Recorded ?Confirmed ?Type escitalopram oxalate 20 mg tablet 20 mg PO DAILY 08/12/24 08/12/24 History levothyroxine 75 mcg tablet 75 mcg PO QAM 08/12/24 08/12/24 History liothyronine 5 mcg tablet 5 mcg PO DAILY 08/12/24 08/12/24 History trazodone 50 mg tablet 50 - 100 mg PO BEDTIME PRN Insomnia 08/12/24 08/12/24 History Allergies Allergies Allergy/AdvReac Type Severity Reaction Status Date / Time No Known Allergies Allergy Verified 08/12/24 11:51 Mental Status Exam Mental Status Exam Patient Appearance: Appropriate Patient Orientation: Person, Place, Time and Situation Level of Consciousness: Alert Patient Behavior: Appropriate, Talkative, Cooperative, Anxious, Fearful, Fatigued, Confused and Good Eye Contact Mood Description: Withdrawn, Depressed, Fearful, Anxious, Sad, Nervous and Apprehensive Affect Description: Flat Patient Cognition Impaired: No Ability to Follow Directions: Good Speech Pattern: Spontaneous Speech Memory Description: Remote Impaired, Episodic Impaired and Recent Impaired Hallucinations: None Perceptual Disturbances: Derealization Thought Process: Rumination and Confusion Thought Content: positive for Perseveration and positive for Preoccupation Depressive Symptoms: Increased Anxiety, Difficulty Sleeping, Changes in Appetite, Significant Weight Loss, Loss of Int. in Activity, Feelings of Worthlessness, Hopelessness, Isolating-Friends/Family, Unhappiness, Increased Fatigue, Low Self Esteem, Loss of Energy and Difficulty Concentrating Judgement: Fair Assessment & Plan Assessment & Plan (1) Recurrent major depression: Status: Acute Code(s): F33.9 - Major depressive disorder, recurrent, unspecified (2) Adult failure to thrive: Status: Acute Code(s): R62.7 - Adult failure to thrive Plan Recurrent Major Depression, Failure to Thrive, Rule out MCI. Plan: Admit, CV, 15 minute checks Labs, diagnostics MRI-terry Collateral contacts Decrease Levothyroxine to 37.5 mg daily and Liothyronine to 2.5 mg daily (consult with hospitalist Dr. Pickens as TSH is 0.01 today and yesterday. Med trials when diagnostics are completed MOCA today 24. Patient educated on: medication risk/benefits and therapeutic strategies Reason for continued inpatient stay Substantial Risk for: rapid decompensation Statement Statement: I have reviewed the history and physical and performed a pertinent examination on my patient. No changes have occurred unless specified. If the History and Physical was not performed prior to admission, the Hospitalist's service will be consulted for completing the admission physical. Time Spent With Patient Time: Total time managing care of this patient today ____ minutes.
[2024-08-13] MEDS: Flu Vacc TS2024-25(6mos up)/PF 0.5 ML SYRINGE IM (14:38)
[2024-08-13] MEDS: traZODone HCL 50 MG TABLET PO ×2 (21:27→22:23)
[2024-08-13] MEDS: Milk of Magnesia 30 ML ORAL.SUSP PO (21:29)
[2024-08-13] MEDS: LORazepam 0.5 MG TABLET PO (22:23)
--- NOTE | 2024-08-14 04:36 | PC.NURSE ---
During assessment on the evening of 08/13, this patient repeatedly told this advertising copy writer I think I have lice. Patient reported that staff on days did check her scalp, and nothing was found. Patient was so concerned that she had this advertising copy writer look at her hairline, then asked this advertising copy writer to look at her bed linens as there was a small dark item on the bed (which was NOT a nit.) Patient is still anxious and does not believe that she does not have lice.
[2024-08-14] MEDS: Levothyroxine Sodium 75 MCG TABLET 37.5 MCG PO (06:13)
[2024-08-14 08:00] VITALS: BP 134/74; PULSE 76; RESP 16; O2SAT 100
--- NOTE | 2024-08-14 08:53 | HO.PSYCHPN ---
Subjective Subjective Date of Service: 08/14/24 Reason For Visit: Depression, Rule out MCI Subjective Notes: Conditional Voluntary Healthcare Proxy: No Guardianship: No Medical Problems Affecting Mental Status: No Interim History: Visited by family. Pt not involved or engaged in milieu Isolative, thyroid med changes are tolerated thus far. Pending contact with treatment team post holiday. Pt reports by history Wellbutrin augment helpful. Wanting to trial stimulant, discussion of Vyvanse (?will insurance cover this-will explore) Medication Compliance: Yes Side effects from medications: No Attending Groups: No Review of Systems Acute medical concerns: No Review of Systems Review of Systems Yes all other systems are reviewed and are negative Mental Status Exam Mental Status Exam Patient Appearance: Appropriate Patient Orientation: Person, Place, Time and Situation Level of Consciousness: Alert Patient Behavior: Appropriate, Talkative, Cooperative, Anxious, Fearful, Fatigued, Confused and Good Eye Contact Mood Description: Withdrawn, Depressed, Fearful, Anxious, Sad, Nervous and Apprehensive Affect Description: Flat Patient Cognition Impaired: No Ability to Follow Directions: Good Speech Pattern: Spontaneous Speech Memory Description: Remote Impaired, Episodic Impaired and Recent Impaired Hallucinations: None Perceptual Disturbances: Derealization Thought Process: Rumination and Confusion Thought Content: positive for Perseveration and positive for Preoccupation Depressive Symptoms: Increased Anxiety, Difficulty Sleeping, Changes in Appetite, Significant Weight Loss, Loss of Int. in Activity, Feelings of Worthlessness, Hopelessness, Isolating-Friends/Family, Unhappiness, Increased Fatigue, Low Self Esteem, Loss of Energy and Difficulty Concentrating Judgement: Fair Diagnostics Vital Signs (24Hr): BMI result Body Mass Index 21.0 Labs 08/12/24 12:10 08/12/24 12:10 Labs: Laboratory Results - last 48 hr 08/12/24 08/12/24 08/13/24 12:10 12:37 07:56 WBC 7.8 RBC 4.74 Hgb 13.9 Hct 40.6 MCV 85.7 MCH 29.3 MCHC 34.2 RDW 12.3 Plt Count 323 MPV 10.4 Immature Gran % (Auto) 0.4 Neut % (Auto) 60.8 Lymph % (Auto) 29.5 [place] % (Auto) 8.3 Eos % (Auto) 0.4 Baso % (Auto) 0.6 Lymph # (Auto) 2.3 [place] # (Auto) 0.7 Eos # (Auto) 0.0 Baso # (Auto) 0.1 Abs Immat Gran (auto) 0.03 Absolute Neuts (auto) 4.8 Absolute Nucleated RBC 0.000 Nucleated RBC % (auto) 0.0 Sodium 137 Potassium 3.8 Chloride 104 Carbon Dioxide 26 Anion Gap 11 L BUN 12 Creatinine 0.74 Estim Creat Clear Calc 55.9 Estimated GFR > 60 Random Glucose 100 Estimat Average Glucose 100 Hemoglobin A1c % 5.1 Calcium 8.8 Magnesium 2.1 2.0 Total Bilirubin 0.3 AST 19 ALT 15 Alkaline Phosphatase 72 Total Protein 6.3 L Albumin 3.8 Triglycerides 85 Cholesterol 169 LDL Cholesterol, Calc 104 H HDL Cholesterol 48 Vitamin B12 437 Folate 5.2 TSH < 0.01 L < 0.01 L Free T4 1.36 1.46 Urine Color Yellow Urine Appearance Clear Urine pH 5.5 Ur Specific [place] 1.010 Urine Protein Negative Urine Glucose (UA) Negative Urine Ketones Negative Urine Blood Negative Urine Nitrite Negative Ur Leukocyte Esterase Trace H Urine RBC 0-2 Urine WBC 0-5 Ur Squamous Epith Cells 0-2 Urine Bacteria None Seen Hyaline Casts 0-2 Urine Opiates Screen Not Detected Ur Buprenorphine Scrn Not Detected Ur Oxycodone Screen Not Detected Urine Methadone Screen Not Detected Urine Fentanyl Screen Not Detected Ur Barbiturates Screen Not Detected Ur Phencyclidine Scrn Not Detected Ur Amphetamines Screen Not Detected U Benzodiazepines Scrn Not Detected Urine Cocaine Screen Not Detected U Marijuana (THC) Screen Not Detected Ethyl Alcohol < 10 Imaging Radiology Impressions: ITS Impressions Brain MRI 08/13/24 12:40 IMPRESSION: 1. No acute intracranial abnormalities. 2. Chronic microangiopathy. Electronically signed by: Dina Benton MD 08/13/2024 02:03 PM SEE Medications Medications Current Medications Acetaminophen (Acetaminophen 325 Mg Tablet) 650 mg PO Q6H PRN PRN Reason: Headache/Pain Mild Scale (1-3) Al Hydroxide/Mg Hydroxide (Magnesium Hydrox/Alum Hydrox 30 Ml Oral.Susp) 30 ml PO Q6H PRN PRN Reason: Heartburn/Nausea Escitalopram Oxalate (Escitalopram Oxalate 20 Mg Tablet) 20 mg PO DAILY [facility] Last Admin: 08/13/24 08:15 Dose: 20 mg Hydroxyzine HCl (Hydroxyzine Hcl 25 Mg Tablet) 25 mg PO Q6H PRN PRN Reason: Anxiety Levothyroxine Sodium (Levothyroxine Sodium 75 Mcg Tablet) 37.5 mcg PO DAILY@0600 [facility] Last Admin: 08/14/24 06:13 Dose: 37.5 mcg Lorazepam (Lorazepam 0.5 Mg Tablet) 0.5 mg PO Q8H PRN PRN Reason: Anxiety Last Admin: 08/13/24 22:23 Dose: 0.5 mg Magnesium Hydroxide (Milk Of Magnesia 30 Ml Oral.Susp) 30 ml PO DAILY PRN PRN Reason: Constipation Last Admin: 08/13/24 21:29 Dose: 30 ml Nicotine Polacrilex (Nicotine Polacrilex 2 Mg Gum) 4 mg BUCCAL Q2H PRN PRN Reason: Nicotine Cravings Patient Own Medication ( Liothyronine 5mcg Tabs) 1 each PO DAILY [facility] Last Admin: 08/13/24 11:48 Dose: Not Given Trazodone HCl (Trazodone Hcl 50 Mg Tablet) 50 mg PO BEDTIME MRX1 PRN PRN Reason: Insomnia Last Admin: 08/13/24 22:23 Dose: 50 mg Allergies Allergies Allergy/AdvReac Type Severity Reaction Status Date / Time No Known Allergies Allergy Verified 08/12/24 11:51 Assessment & Plan Assessment & Plan (1) Recurrent major depression: Status: Acute Code(s): F33.9 - Major depressive disorder, recurrent, unspecified (2) Adult failure to thrive: Status: Acute Code(s): R62.7 - Adult failure to thrive Plan Recurrent Major Depression, Failure to Thrive, Rule out MCI. Plan: Admit, CV, 15 minute checks Labs, diagnostics MRI-terry Collateral contacts Decrease Levothyroxine to 37.5 mg daily and Liothyronine to 2.5 mg daily (consult with hospitalist Dr. Pickens as TSH is 0.01 today and yesterday. Med trials when diagnostics are completed MOCA today 08/14- Continue plan/regime. Reason for continued inpatient stay Substantial Risk for: rapid decompensation Time Spent With Patient Time: Total time managing care of this patient today ____ minutes.
[2024-08-14] MEDS: Escitalopram Oxalate 20 MG TABLET PO (08:58)
[2024-08-14] MEDS: LIOTHYRONINE 5 MCG 1 EACH PO (09:36)
[2024-08-14 20:00] VITALS: RESP 16
[2024-08-14] MEDS: LORazepam 0.5 MG TABLET PO (21:08)
[2024-08-14] MEDS: traZODone HCL 100 MG TABLET PO (21:08)
[2024-08-15] MEDS: Levothyroxine Sodium 75 MCG TABLET 37.5 MCG PO (06:18)
[2024-08-15 08:00] VITALS: BP 133/64; PULSE 69; RESP 16; TEMP 36.4; O2SAT 98
[2024-08-15] MEDS: Escitalopram Oxalate 20 MG TABLET PO (08:26)
--- NOTE | 2024-08-15 10:57 | HO.PSYCHPN ---
Subjective Subjective Date of Service: 08/15/24 Reason For Visit: Depression, Rule out MCI Subjective Notes: Conditional Voluntary Healthcare Proxy: No Guardianship: No Medical Problems Affecting Mental Status: No Interim History: Isolative. Pt not wanting to spend a great deal of time in discussion. In bed most of the day. Tolerating decreases of thyroid medications. Insurance will not cover vyvanse, Wellbutrin 37.5 mg trial to begin 08/16. Message left for Dr. Jamie Ghotra [phone]. Medication Compliance: Yes Side effects from medications: No Attending Groups: No Review of Systems Acute medical concerns: No Review of Systems Review of Systems Yes all other systems are reviewed and are negative Mental Status Exam Mental Status Exam Patient Appearance: Appropriate Patient Orientation: Person, Place, Time and Situation Level of Consciousness: Alert Patient Behavior: Appropriate, Talkative, Cooperative, Anxious, Fearful, Fatigued, Confused and Good Eye Contact Mood Description: Withdrawn, Depressed, Fearful, Anxious, Sad, Nervous and Apprehensive Affect Description: Flat Patient Cognition Impaired: No Ability to Follow Directions: Good Speech Pattern: Spontaneous Speech Memory Description: Remote Impaired, Episodic Impaired and Recent Impaired Hallucinations: None Perceptual Disturbances: Derealization Thought Process: Rumination and Confusion Thought Content: positive for Perseveration and positive for Preoccupation Depressive Symptoms: Increased Anxiety, Difficulty Sleeping, Changes in Appetite, Significant Weight Loss, Loss of Int. in Activity, Feelings of Worthlessness, Hopelessness, Isolating-Friends/Family, Unhappiness, Increased Fatigue, Low Self Esteem, Loss of Energy and Difficulty Concentrating Judgement: Fair Diagnostics Vital Signs (24Hr): Vital Signs - 24 hr 08/14/24 20:00 08/15/24 08:00 Temperature 97.6 F Pulse Rate 69 Respiratory Rate 16 16 Blood Pressure 133/64 Pulse Oximetry 98 Oxygen Delivery Method Room Air BMI result Body Mass Index 21.0 Labs 08/12/24 12:10 08/12/24 12:10 Imaging Radiology Impressions: ITS Impressions Brain MRI 08/13/24 12:40 IMPRESSION: 1. No acute intracranial abnormalities. 2. Chronic microangiopathy. Electronically signed by: Dina Benton MD 08/13/2024 02:03 PM [facility] Medications Medications Current Medications Acetaminophen (Acetaminophen 325 Mg Tablet) 650 mg PO Q6H PRN PRN Reason: Headache/Pain Mild Scale (1-3) Al Hydroxide/Mg Hydroxide (Magnesium Hydrox/Alum Hydrox 30 Ml Oral.Susp) 30 ml PO Q6H PRN PRN Reason: Heartburn/Nausea Escitalopram Oxalate (Escitalopram Oxalate 20 Mg Tablet) 20 mg PO DAILY REPLACED BY [facility] Last Admin: 08/15/24 08:26 Dose: 20 mg Hydroxyzine HCl (Hydroxyzine Hcl 25 Mg Tablet) 25 mg PO Q6H PRN PRN Reason: Anxiety Levothyroxine Sodium (Levothyroxine Sodium 75 Mcg Tablet) 37.5 mcg PO DAILY@0600 [facility]PL[facility] Last Admin: 08/15/24 06:18 Dose: 37.5 mcg Lorazepam (Lorazepam 0.5 Mg Tablet) 0.5 mg PO Q8H PRN PRN Reason: Anxiety Last Admin: 08/14/24 21:08 Dose: 0.5 mg Magnesium Hydroxide (Milk Of Magnesia 30 Ml Oral.Susp) 30 ml PO DAILY PRN PRN Reason: Constipation Last Admin: 08/13/24 21:29 Dose: 30 ml Nicotine Polacrilex (Nicotine Polacrilex 2 Mg Gum) 4 mg BUCCAL Q2H PRN PRN Reason: Nicotine Cravings Non-Formulary Medication (Liothyronine) 2.5 mcg PO DAILY@0600 REPLACED BY [facility] Last Admin: 08/15/24 10:39 Dose: 2.5 mcg Trazodone HCl (Trazodone Hcl 100 Mg Tablet) 100 mg PO BEDTIME REPLACED BY [facility] Last Admin: 08/14/24 21:08 Dose: 100 mg Allergies Allergies Allergy/AdvReac Type Severity Reaction Status Date / Time No Known Allergies Allergy Verified 08/12/24 11:51 Assessment & Plan Assessment & Plan (1) Recurrent major depression: Status: Acute Code(s): F33.9 - Major depressive disorder, recurrent, unspecified (2) Adult failure to thrive: Status: Acute Code(s): R62.7 - Adult failure to thrive Plan Recurrent Major Depression, Failure to Thrive, Rule out MCI. Plan: Admit, CV, 15 minute checks Labs, diagnostics MRI-terry Collateral contacts Decrease Levothyroxine to 37.5 mg daily and Liothyronine to 2.5 mg daily (consult with hospitalist Dr. Pickens as TSH is 0.01 today and yesterday. Med trials when diagnostics are completed MOCA today 24. 1226: Wellbutrin 37.5 mg daily Message left for OP MD Reason for continued inpatient stay Substantial Risk for: rapid decompensation Time Spent With Patient Time: Total time managing care of this patient today ____ minutes.
[2024-08-15] MEDS: traZODone HCL 100 MG TABLET PO (21:07)
[2024-08-15] MEDS: LORazepam 0.5 MG TABLET PO (21:47)
[2024-08-16] MEDS: Levothyroxine Sodium 75 MCG TABLET 37.5 MCG PO (06:46)
[2024-08-16 08:00] VITALS: BP 119/58; PULSE 64; RESP 16; TEMP 36.7; O2SAT 97
[2024-08-16] MEDS: buPROPion HCL 75 MG TABLET 37.5 MG PO (09:19)
[2024-08-16] MEDS: Escitalopram Oxalate 20 MG TABLET PO (09:19)
--- NOTE | 2024-08-16 10:56 | P.PNPSI_ITS ---
Subjective Subjective Date of Service: 08/16/24 Reason For Visit: Depression, Rule out MCI Subjective Notes: Conditional Voluntary Healthcare Proxy: No Guardianship: No Medical Problems Affecting Mental Status: No Interim History: Continues to isolate and avoid milieu. Wellbutrin initiated. Message again left for Dr. Ghotra to discuss medications. Team was given information yesterday that pt lost her mom last year and symptoms rapidly escalated after her . Pt sleeping today when approached, not wanting to meet. Medication Compliance: Yes Side effects from medications: No Attending Groups: No Review of Systems Acute medical concerns: No Review of Systems Review of Systems Yes all other systems are reviewed and are negative Mental Status Exam Mental Status Exam Patient Appearance: Appropriate Patient Orientation: Person, Place, Time and Situation Level of Consciousness: Alert Patient Behavior: Appropriate, Talkative, Cooperative, Anxious, Fearful, Fatigued, Confused and Good Eye Contact Mood Description: Withdrawn, Depressed, Fearful, Anxious, Sad, Nervous and Apprehensive Affect Description: Flat Patient Cognition Impaired: No Ability to Follow Directions: Good Speech Pattern: Spontaneous Speech Memory Description: Remote Impaired, Episodic Impaired and Recent Impaired Hallucinations: None Perceptual Disturbances: Derealization Thought Process: Rumination and Confusion Thought Content: positive for Perseveration and positive for Preoccupation Depressive Symptoms: Increased Anxiety, Difficulty Sleeping, Changes in Appetite, Significant Weight Loss, Loss of Int. in Activity, Feelings of Worthlessness, Hopelessness, Isolating-Friends/Family, Unhappiness, Increased Fatigue, Low Self Esteem, Loss of Energy and Difficulty Concentrating Judgement: Fair Diagnostics Vital Signs (24Hr): BMI result Body Mass Index 21.0 Labs 08/12/24 12:10 08/12/24 12:10 Imaging Radiology Impressions: ITS Impressions Brain MRI 08/13/24 12:40 IMPRESSION: 1. No acute intracranial abnormalities. 2. Chronic microangiopathy. Electronically signed by: Dina Benton MD 08/13/2024 02:03 PM SEE Medications Medications Current Medications Acetaminophen (Acetaminophen 325 Mg Tablet) 650 mg PO Q6H PRN PRN Reason: Headache/Pain Mild Scale (1-3) Al Hydroxide/Mg Hydroxide (Magnesium Hydrox/Alum Hydrox 30 Ml Oral.Susp) 30 ml PO Q6H PRN PRN Reason: Heartburn/Nausea Bupropion HCl (Bupropion Hcl 75 Mg Tablet) 37.5 mg PO DAILY [facility] Last Admin: 08/16/24 09:19 Dose: 37.5 mg Escitalopram Oxalate (Escitalopram Oxalate 20 Mg Tablet) 20 mg PO DAILY [facility] Last Admin: 08/16/24 09:19 Dose: 20 mg Hydroxyzine HCl (Hydroxyzine Hcl 25 Mg Tablet) 25 mg PO Q6H PRN PRN Reason: Anxiety Levothyroxine Sodium (Levothyroxine Sodium 75 Mcg Tablet) 37.5 mcg PO DAILY@0600 [facility] Last Admin: 08/16/24 06:46 Dose: 37.5 mcg Lorazepam (Lorazepam 0.5 Mg Tablet) 0.5 mg PO Q8H PRN PRN Reason: Anxiety Last Admin: 08/15/24 21:47 Dose: 0.5 mg Magnesium Hydroxide (Milk Of Magnesia 30 Ml Oral.Susp) 30 ml PO DAILY PRN PRN Reason: Constipation Last Admin: 08/13/24 21:29 Dose: 30 ml Nicotine Polacrilex (Nicotine Polacrilex 2 Mg Gum) 4 mg BUCCAL Q2H PRN PRN Reason: Nicotine Cravings Non-Formulary Medication (Liothyronine) 2.5 mcg PO DAILY@0600 [facility] Last Admin: 08/16/24 06:46 Dose: 2.5 mcg Trazodone HCl (Trazodone Hcl 100 Mg Tablet) 100 mg PO BEDTIME [facility] Last Admin: 08/15/24 21:07 Dose: 100 mg Allergies Allergies Allergy/AdvReac Type Severity Reaction Status Date / Time No Known Allergies Allergy Verified 08/12/24 11:51 Assessment & Plan Assessment & Plan (1) Recurrent major depression: Status: Acute Code(s): F33.9 - Major depressive disorder, recurrent, unspecified (2) Adult failure to thrive: Status: Acute Code(s): R62.7 - Adult failure to thrive Plan Recurrent Major Depression, Failure to Thrive, Rule out MCI. Plan: Admit, CV, 15 minute checks Labs, diagnostics MRI-terry Collateral contacts Decrease Levothyroxine to 37.5 mg daily and Liothyronine to 2.5 mg daily (consult with hospitalist Dr. Pickens as TSH is 0.01 today and yesterday. Med trials when diagnostics are completed MOCA today 08/16: Continue plan of care ?ECT consult. ?Mood stabilizer trial Reason for continued inpatient stay Substantial Risk for: rapid decompensation Time Spent With Patient Time: Total time managing care of this patient today ____ minutes.
[2024-08-16 20:00] VITALS: RESP 16
[2024-08-16] MEDS: Milk of Magnesia 30 ML ORAL.SUSP PO (20:25)
[2024-08-16] MEDS: LORazepam 0.5 MG TABLET PO (20:27)
[2024-08-16] MEDS: traZODone HCL 100 MG TABLET PO (20:27)
[2024-08-17] MEDS: Levothyroxine Sodium 75 MCG TABLET 37.5 MCG PO (06:29)
[2024-08-17 08:00] VITALS: BP 113/62; PULSE 50; RESP 16; TEMP 36.4; O2SAT 97
[2024-08-17] MEDS: Escitalopram Oxalate 20 MG TABLET PO (08:31)
[2024-08-17] MEDS: buPROPion HCL 75 MG TABLET 37.5 MG PO (08:31)
--- NOTE | 2024-08-17 15:16 | P.PNPSI_ITS ---
Subjective Subjective Date of Service: 08/17/24 Reason For Visit: Depression, Rule out MCI Subjective Notes: Conditional Voluntary Healthcare Proxy: No Guardianship: No Medical Problems Affecting Mental Status: No Interim History: Pt seen, discussed with the team Plan of care reviewed. Pt not interested in engaging in milieu, reading in bed. Received a message from Dr. Espinosa, pt's OP psychiatrist who reports no response to psychopharm within the last year including SSRI's, mood stabilizers, second generation antipsychotics. Pt either had poor tolerance or ineffective trial. Discussed interest in ECT with pt. She is not interested at this time as she is worried it will make her memory worse. Medication Compliance: Yes Side effects from medications: No Attending Groups: No Review of Systems Acute medical concerns: No Review of Systems Review of Systems Denies Mental Status Exam Mental Status Exam Patient Appearance: Appropriate Patient Orientation: Person, Place, Time and Situation Level of Consciousness: Alert Patient Behavior: Appropriate, Talkative, Cooperative, Anxious, Fearful, Fatigued, Confused and Good Eye Contact Mood Description: Withdrawn, Depressed, Fearful, Anxious, Sad, Nervous and Apprehensive Affect Description: Flat Patient Cognition Impaired: No Ability to Follow Directions: Good Speech Pattern: Spontaneous Speech Memory Description: Remote Impaired, Episodic Impaired and Recent Impaired Hallucinations: None Perceptual Disturbances: Derealization Thought Process: Rumination and Confusion Thought Content: positive for Perseveration and positive for Preoccupation Depressive Symptoms: Increased Anxiety, Difficulty Sleeping, Changes in Appetite, Significant Weight Loss, Loss of Int. in Activity, Feelings of Worthlessness, Hopelessness, Isolating-Friends/Family, Unhappiness, Increased Fatigue, Low Self Esteem, Loss of Energy and Difficulty Concentrating Judgement: Fair Diagnostics Vital Signs (24Hr): Vital Signs - 24 hr 08/16/24 20:00 08/17/24 08:00 Temperature 97.5 F Pulse Rate 50 Respiratory Rate 16 16 Blood Pressure 113/62 Pulse Oximetry 97 Oxygen Delivery Method Room Air BMI result Body Mass Index 21.0 Labs 08/12/24 12:10 08/12/24 12:10 Imaging Radiology Impressions: ITS Impressions Brain MRI 08/13/24 12:40 IMPRESSION: 1. No acute intracranial abnormalities. 2. Chronic microangiopathy. Electronically signed by: Dina Benton MD 08/13/2024 02:03 PM SEE Medications Medications Current Medications Acetaminophen (Acetaminophen 325 Mg Tablet) 650 mg PO Q6H PRN PRN Reason: Headache/Pain Mild Scale (1-3) Al Hydroxide/Mg Hydroxide (Magnesium Hydrox/Alum Hydrox 30 Ml Oral.Susp) 30 ml PO Q6H PRN PRN Reason: Heartburn/Nausea Bupropion HCl (Bupropion Hcl 75 Mg Tablet) 37.5 mg PO DAILY [facility] Last Admin: 08/17/24 08:31 Dose: 37.5 mg Escitalopram Oxalate (Escitalopram Oxalate 20 Mg Tablet) 20 mg PO DAILY [facility] Last Admin: 08/17/24 08:31 Dose: 20 mg Hydroxyzine HCl (Hydroxyzine Hcl 25 Mg Tablet) 25 mg PO Q6H PRN PRN Reason: Anxiety Levothyroxine Sodium (Levothyroxine Sodium 75 Mcg Tablet) 37.5 mcg PO DAILY@0600 [facility] Last Admin: 08/17/24 06:29 Dose: 37.5 mcg Lorazepam (Lorazepam 0.5 Mg Tablet) 0.5 mg PO Q8H PRN PRN Reason: Anxiety Last Admin: 08/16/24 20:27 Dose: 0.5 mg Magnesium Hydroxide (Milk Of Magnesia 30 Ml Oral.Susp) 30 ml PO DAILY PRN PRN Reason: Constipation Last Admin: 08/16/24 20:25 Dose: 30 ml Nicotine Polacrilex (Nicotine Polacrilex 2 Mg Gum) 4 mg BUCCAL Q2H PRN PRN Reason: Nicotine Cravings Non-Formulary Medication (Liothyronine) 2.5 mcg PO DAILY@0600 [facility] Last Admin: 08/17/24 06:29 Dose: 2.5 mcg Trazodone HCl (Trazodone Hcl 100 Mg Tablet) 100 mg PO BEDTIME [facility] Last Admin: 08/16/24 20:27 Dose: 100 mg Allergies Allergies Allergy/AdvReac Type Severity Reaction Status Date / Time No Known Allergies Allergy Verified 08/12/24 11:51 Assessment & Plan Assessment & Plan (1) Recurrent major depression: Status: Acute Code(s): F33.9 - Major depressive disorder, recurrent, unspecified (2) Adult failure to thrive: Status: Acute Code(s): R62.7 - Adult failure to thrive Plan Recurrent Major Depression, Failure to Thrive, Rule out MCI. Plan: Admit, CV, 15 minute checks Labs, diagnostics MRI-terry Collateral contacts Decrease Levothyroxine to 37.5 mg daily and Liothyronine to 2.5 mg daily (consult with hospitalist Dr. Pickens as TSH is 0.01 today and yesterday. Med trials when diagnostics are completed MOCA today . 08/16: Continue plan of care ?ECT consult. ?Mood stabilizer trial 08/17: Continue Wellbutrin ?MAOI trial Declines ECT consult due to her concern about her memory Reason for continued inpatient stay Substantial Risk for: rapid decompensation Time Spent With Patient Time: Total time managing care of this patient today ____ minutes.
[2024-08-17] MEDS: traZODone HCL 100 MG TABLET PO (22:13)
[2024-08-17] MEDS: LORazepam 0.5 MG TABLET PO (22:19)
[2024-08-18] MEDS: Levothyroxine Sodium 75 MCG TABLET 37.5 MCG PO (06:58)
[2024-08-18] MEDS: Escitalopram Oxalate 20 MG TABLET PO (09:21)
[2024-08-18] MEDS: buPROPion HCL 75 MG TABLET 37.5 MG PO (09:26)
[2024-08-18] MEDS: Milk of Magnesia 30 ML ORAL.SUSP PO (10:27)
--- NOTE | 2024-08-18 14:00 | P.PNPSI_ITS ---
Subjective Subjective Date of Service: 08/18/24 Reason For Visit: Depression, Rule out MCI Subjective Notes: Conditional Voluntary Healthcare Proxy: No Guardianship: No Medical Problems Affecting Mental Status: No Interim History: Pt seen, discussed with the team Plan of care reviewed. Pt continues to decline to participate in the milieu. She continues to decline trials, giving several reasons for potential adverse effects. She is reading in bed. She reported to team being uncomfortable as room-mate requires a 1:1 for CPAP at night. Constipation reported, MOM given. Medication Compliance: Yes Side effects from medications: No Attending Groups: No Review of Systems Acute medical concerns: No Review of Systems Review of Systems Yes all other systems are reviewed and are negative Mental Status Exam Mental Status Exam Patient Appearance: Appropriate Patient Orientation: Person, Place, Time and Situation Level of Consciousness: Alert Patient Behavior: Appropriate, Talkative, Cooperative, Anxious, Fearful, Fatigued, Confused and Good Eye Contact Mood Description: Withdrawn, Depressed, Fearful, Anxious, Sad, Nervous and Apprehensive Affect Description: Flat Patient Cognition Impaired: No Ability to Follow Directions: Good Speech Pattern: Spontaneous Speech Memory Description: Remote Impaired, Episodic Impaired and Recent Impaired Hallucinations: None Perceptual Disturbances: Derealization Thought Process: Rumination and Confusion Thought Content: positive for Perseveration and positive for Preoccupation Depressive Symptoms: Increased Anxiety, Difficulty Sleeping, Changes in Appetite, Significant Weight Loss, Loss of Int. in Activity, Feelings of Worthlessness, Hopelessness, Isolating-Friends/Family, Unhappiness, Increased Fatigue, Low Self Esteem, Loss of Energy and Difficulty Concentrating Judgement: Fair Diagnostics Vital Signs (24Hr): BMI result Body Mass Index 21.0 Labs 08/12/24 12:10 08/12/24 12:10 Imaging Radiology Impressions: ITS Impressions Brain MRI 08/13/24 12:40 IMPRESSION: 1. No acute intracranial abnormalities. 2. Chronic microangiopathy. Electronically signed by: Dina Benton MD 08/13/2024 02:03 PM [facility] Medications Medications Current Medications Acetaminophen (Acetaminophen 325 Mg Tablet) 650 mg PO Q6H PRN PRN Reason: Headache/Pain Mild Scale (1-3) Al Hydroxide/Mg Hydroxide (Magnesium Hydrox/Alum Hydrox 30 Ml Oral.Susp) 30 ml PO Q6H PRN PRN Reason: Heartburn/Nausea Bupropion HCl (Bupropion Hcl 75 Mg Tablet) 37.5 mg PO DAILY [facility] Last Admin: 08/18/24 09:26 Dose: 37.5 mg Escitalopram Oxalate (Escitalopram Oxalate 20 Mg Tablet) 20 mg PO DAILY [facility] Last Admin: 08/18/24 09:21 Dose: 20 mg Hydroxyzine HCl (Hydroxyzine Hcl 25 Mg Tablet) 25 mg PO Q6H PRN PRN Reason: Anxiety Levothyroxine Sodium (Levothyroxine Sodium 75 Mcg Tablet) 37.5 mcg PO DAILY@0600 [facility] Last Admin: 08/18/24 06:58 Dose: 37.5 mcg Lorazepam (Lorazepam 0.5 Mg Tablet) 0.5 mg PO Q8H PRN PRN Reason: Anxiety Last Admin: 08/17/24 22:19 Dose: 0.5 mg Magnesium Hydroxide (Milk Of Magnesia 30 Ml Oral.Susp) 30 ml PO DAILY PRN PRN Reason: Constipation Last Admin: 08/18/24 10:27 Dose: 30 ml Nicotine Polacrilex (Nicotine Polacrilex 2 Mg Gum) 4 mg BUCCAL Q2H PRN PRN Reason: Nicotine Cravings Non-Formulary Medication (Liothyronine) 2.5 mcg PO DAILY@0600 [facility] Last Admin: 08/18/24 07:05 Dose: 2.5 mcg Trazodone HCl (Trazodone Hcl 100 Mg Tablet) 100 mg PO BEDTIME [facility] Last Admin: 08/17/24 22:13 Dose: 100 mg Allergies Allergies Allergy/AdvReac Type Severity Reaction Status Date / Time No Known Allergies Allergy Verified 08/12/24 11:51 Assessment & Plan Assessment & Plan (1) Recurrent major depression: Status: Acute Code(s): F33.9 - Major depressive disorder, recurrent, unspecified (2) Adult failure to thrive: Status: Acute Code(s): R62.7 - Adult failure to thrive Plan Recurrent Major Depression, Failure to Thrive, Rule out MCI. Plan: Admit, CV, 15 minute checks Labs, diagnostics MRI-terry Collateral contacts Decrease Levothyroxine to 37.5 mg daily and Liothyronine to 2.5 mg daily (consult with hospitalist Dr. Pickens as TSH is 0.01 today and yesterday. Med trials when diagnostics are completed MOCA today 08/16: Continue plan of care ?ECT consult. ?Mood stabilizer trial 08/17: Continue Wellbutrin ?MAOI trial Declines ECT consult due to her concern about her memory 08/18: Continue tx plan. Reason for continued inpatient stay Substantial Risk for: rapid decompensation Time Spent With Patient Time: Total time managing care of this patient today ____ minutes.
[2024-08-18 20:00] VITALS: RESP 16
[2024-08-18] MEDS: LORazepam 0.5 MG TABLET PO (21:38)
[2024-08-18] MEDS: traZODone HCL 100 MG TABLET PO (21:38)
[2024-08-19] MEDS: Levothyroxine Sodium 75 MCG TABLET 37.5 MCG PO (07:12)
[2024-08-19 08:00] VITALS: BP 88/54; PULSE 80; RESP 16; TEMP 36.8; O2SAT 97
[2024-08-19] MEDS: buPROPion HCL 75 MG TABLET 37.5 MG PO (08:34)
[2024-08-19] MEDS: Escitalopram Oxalate 20 MG TABLET PO (08:34)
--- NOTE | 2024-08-19 12:04 | HO.PSYCHPN ---
Subjective Subjective Date of Service: 08/19/24 Reason For Visit: Depression, Rule out MCI Subjective Notes: Conditional Voluntary Healthcare Proxy: No Guardianship: No Medical Problems Affecting Mental Status: No Interim History: Pt seen, met with team. Plan of care reviewed. Care discussed with Dr. Yoo [phone]. Pt has had several medicine trials without success. Dr. Yoo has reviewed pt's sx with her therapist and they have concluded that pt has just needed a break. After daughter's suicide attempt and mother's pt could not handle it any longer. Medicines, by history, have helped (Paxil, Wellbutrin, Strattera). Both MD and therapist feel pt cannot tolerate anything, including intervention at this time. She has presented as worn out to them, with family and clinical teams meaning well, offering intervention that she cannot accept. They believe she is just taking an extended break. Dr. Yoo does not suggest ECT as pt will focus on adverse effects and memory issues. TMS is possible. She has trialed Latuda (she could not walk on the lowest dose) and Vraylar. Met with pt. She would like to feel optimistic, caring, functioning and be able to plan. She discussed [id number] response. She does not want any medicine that will be costly. She does not believe current sx to be bipolar II. She continues to refuse ECT consult Will increase Wellbutrin to 75 mg Declines groups-wanting to keep to herself, be calm not anxious over others problems or feeling self conscious going to a grou[ Family meeting 08/20. Medication Compliance: Yes Side effects from medications: No Attending Groups: No Review of Systems Acute medical concerns: No Review of Systems Review of Systems Yes all other systems are reviewed and are negative Mental Status Exam Mental Status Exam Patient Appearance: Appropriate Patient Orientation: Person, Place, Time and Situation Level of Consciousness: Alert Patient Behavior: Appropriate, Talkative, Cooperative, Anxious, Fearful, Fatigued, Confused and Good Eye Contact Mood Description: Withdrawn, Depressed, Fearful, Anxious, Sad, Nervous and Apprehensive Affect Description: Flat Patient Cognition Impaired: No Ability to Follow Directions: Good Speech Pattern: Spontaneous Speech Memory Description: Remote Impaired, Episodic Impaired and Recent Impaired Hallucinations: None Perceptual Disturbances: Derealization Thought Process: Rumination and Confusion Thought Content: positive for Perseveration and positive for Preoccupation Depressive Symptoms: Increased Anxiety, Difficulty Sleeping, Changes in Appetite, Significant Weight Loss, Loss of Int. in Activity, Feelings of Worthlessness, Hopelessness, Isolating-Friends/Family, Unhappiness, Increased Fatigue, Low Self Esteem, Loss of Energy and Difficulty Concentrating Judgement: Fair Diagnostics Vital Signs (24Hr): Vital Signs - 24 hr 08/18/24 20:00 Respiratory Rate 16 BMI result Body Mass Index 21.0 Labs 08/12/24 12:10 08/12/24 12:10 Imaging Radiology Impressions: ITS Impressions Brain MRI 08/13/24 12:40 IMPRESSION: 1. No acute intracranial abnormalities. 2. Chronic microangiopathy. Electronically signed by: Dina Benton MD 08/13/2024 02:03 PM [facility] Medications Medications Current Medications Acetaminophen (Acetaminophen 325 Mg Tablet) 650 mg PO Q6H PRN PRN Reason: Headache/Pain Mild Scale (1-3) Al Hydroxide/Mg Hydroxide (Magnesium Hydrox/Alum Hydrox 30 Ml Oral.Susp) 30 ml PO Q6H PRN PRN Reason: Heartburn/Nausea Bupropion HCl (Bupropion Hcl 75 Mg Tablet) 37.5 mg PO DAILY [facility] Last Admin: 08/19/24 08:34 Dose: 37.5 mg Escitalopram Oxalate (Escitalopram Oxalate 20 Mg Tablet) 20 mg PO DAILY [facility] Last Admin: 08/19/24 08:34 Dose: 20 mg Hydroxyzine HCl (Hydroxyzine Hcl 25 Mg Tablet) 25 mg PO Q6H PRN PRN Reason: Anxiety Levothyroxine Sodium (Levothyroxine Sodium 75 Mcg Tablet) 37.5 mcg PO DAILY@0600 [facility] Last Admin: 08/19/24 07:12 Dose: 37.5 mcg Lorazepam (Lorazepam 0.5 Mg Tablet) 0.5 mg PO Q8H PRN PRN Reason: Anxiety Last Admin: 08/18/24 21:38 Dose: 0.5 mg Magnesium Hydroxide (Milk Of Magnesia 30 Ml Oral.Susp) 30 ml PO DAILY PRN PRN Reason: Constipation Last Admin: 08/18/24 10:27 Dose: 30 ml Nicotine Polacrilex (Nicotine Polacrilex 2 Mg Gum) 4 mg BUCCAL Q2H PRN PRN Reason: Nicotine Cravings Non-Formulary Medication (Liothyronine) 2.5 mcg PO DAILY@0600 [facility] Last Admin: 08/19/24 07:12 Dose: 2.5 mcg Trazodone HCl (Trazodone Hcl 100 Mg Tablet) 100 mg PO BEDTIME [facility] Last Admin: 08/18/24 21:38 Dose: 100 mg Allergies Allergies Allergy/AdvReac Type Severity Reaction Status Date / Time No Known Allergies Allergy Verified 08/12/24 11:51 Assessment & Plan Assessment & Plan (1) Recurrent major depression: Status: Acute Code(s): F33.9 - Major depressive disorder, recurrent, unspecified (2) Adult failure to thrive: Status: Acute Code(s): R62.7 - Adult failure to thrive Plan Recurrent Major Depression, Failure to Thrive, Rule out MCI. Plan: Admit, CV, 15 minute checks Labs, diagnostics MRI-terry Collateral contacts Decrease Levothyroxine to 37.5 mg daily and Liothyronine to 2.5 mg daily (consult with hospitalist Dr. Pickens as TSH is 0.01 today and yesterday. Med trials when diagnostics are completed MOCA today 24. 08/16: Continue plan of care ?ECT consult. ?Mood stabilizer trial 08/17: Continue Wellbutrin ?MAOI trial Declines ECT consult due to her concern about her memory 08/19: Increase Wellbutrin to 75 mg a.m. Family meeting 08/20. Reason for continued inpatient stay Substantial Risk for: rapid decompensation Time Spent With Patient Time: Total time managing care of this patient today ____ minutes.
[2024-08-19 13:44] VITALS: BP 102/55; PULSE 80; RESP 16
[2024-08-19] MEDS: Milk of Magnesia 30 ML ORAL.SUSP PO (17:44)
[2024-08-19] MEDS: LORazepam 0.5 MG TABLET PO (21:39)
[2024-08-19] MEDS: traZODone HCL 100 MG TABLET PO (21:39)
[2024-08-20] MEDS: Levothyroxine Sodium 75 MCG TABLET 37.5 MCG PO (06:17)
[2024-08-20 07:53] VITALS: BP 96/54; PULSE 74; RESP 16; TEMP 36.6; O2SAT 96
[2024-08-20] MEDS: Escitalopram Oxalate 20 MG TABLET PO (08:35)
[2024-08-20] MEDS: buPROPion HCL 75 MG TABLET PO (08:35)
--- NOTE | 2024-08-20 12:48 | HO.PSYCHPN ---
Documented by User: Gisselle Webster NP 08/20/24 12:56 Subjective Subjective Date of Service: 08/20/24 Reason For Visit: Depression, Rule out MCI Subjective Notes: Conditional Voluntary Interim History: Keeping to self. Patient reports feeling anxious and depressed ; pt stated, I know I have to decide on what path I want to take next for treatment but I'm not sure what to do . Patient reports having a good visit with her sister. She reports sleeping well through the night. denies SI/HI/VH/AH. Medication Compliance: Yes Side effects from medications: No Attending Groups: No Review of Systems Constitutional: Reports as per HPI Eyes: Reports as per HPI Reports as per HPI Cardiovascular: Reports as per HPI Respiratory: Reports as per HPI Gastrointestinal: Reports as per HPI Genitourinary: Reports as per HPI Musculoskeletal: Reports as per HPI Skin/Breast: Reports as per HPI Reports as per HPI Psychiatric: Reports as per HPI Endocrine: Reports as per HPI Hematologic/Lymphatic: Reports as per HPI Allergic/Immunologic: Reports as per HPI Mental Status Exam Mental Status Exam Patient Appearance: Well Grooomed Patient Orientation: Person, Place, Time and Situation Level of Consciousness: Awake and Alert Patient Behavior: Appropriate, Cooperative, Anxious and Good Eye Contact Mood Description: Depressed and Anxious Affect Description: Appropriate Ability to Follow Directions: Good Speech Pattern: Clear and Appropriate Memory Description: Intact Hallucinations: None Delusions: Not Present Thought Process: Intact and Goal Oriented Thought Content: positive for Intact and positive for Goal Oriented Diagnostics Vital Signs (24Hr): Vital Signs - 24 hr 08/19/24 13:44 08/20/24 07:53 Temperature 97.8 F Pulse Rate 80 74 Respiratory Rate 16 16 Blood Pressure 102/55 L 96/54 L Pulse Oximetry 96 Oxygen Delivery Method Room Air BMI result Body Mass Index 21.0 Labs 08/12/24 12:10 08/12/24 12:10 Imaging Radiology Impressions: ITS Impressions Brain MRI 08/13/24 12:40 IMPRESSION: 1. No acute intracranial abnormalities. 2. Chronic microangiopathy. Electronically signed by: Dina Benton MD 08/13/2024 02:03 PM [facility] Medications Medications Current Medications Acetaminophen (Acetaminophen 325 Mg Tablet) 650 mg PO Q6H PRN PRN Reason: Headache/Pain Mild Scale (1-3) Al Hydroxide/Mg Hydroxide (Magnesium Hydrox/Alum Hydrox 30 Ml Oral.Susp) 30 ml PO Q6H PRN PRN Reason: Heartburn/Nausea Bupropion HCl (Bupropion Hcl 75 Mg Tablet) 75 mg PO DAILY [facility] Last Admin: 08/20/24 08:35 Dose: 75 mg Escitalopram Oxalate (Escitalopram Oxalate 20 Mg Tablet) 20 mg PO DAILY [facility] Last Admin: 08/20/24 08:35 Dose: 20 mg Hydroxyzine HCl (Hydroxyzine Hcl 25 Mg Tablet) 25 mg PO Q6H PRN PRN Reason: Anxiety Levothyroxine Sodium (Levothyroxine Sodium 75 Mcg Tablet) 37.5 mcg PO DAILY@0600 [facility] Last Admin: 08/20/24 06:17 Dose: 37.5 mcg Lorazepam (Lorazepam 0.5 Mg Tablet) 0.5 mg PO Q8H PRN PRN Reason: Anxiety Last Admin: 08/19/24 21:39 Dose: 0.5 mg Magnesium Hydroxide (Milk Of Magnesia 30 Ml Oral.Susp) 30 ml PO DAILY PRN PRN Reason: Constipation Last Admin: 08/19/24 17:44 Dose: 30 ml Nicotine Polacrilex (Nicotine Polacrilex 2 Mg Gum) 4 mg BUCCAL Q2H PRN PRN Reason: Nicotine Cravings Non-Formulary Medication (Liothyronine) 2.5 mcg PO DAILY@0600 [facility] Last Admin: 08/20/24 06:17 Dose: 2.5 mcg Trazodone HCl (Trazodone Hcl 100 Mg Tablet) 100 mg PO BEDTIME [facility] Last Admin: 08/19/24 21:39 Dose: 100 mg Allergies Allergies Allergy/AdvReac Type Severity Reaction Status Date / Time No Known Allergies Allergy Verified 08/12/24 11:51 Assessment & Plan Assessment & Plan (1) Recurrent major depression: Status: Acute Code(s): F33.9 - Major depressive disorder, recurrent, unspecified (2) Adult failure to thrive: Status: Acute Code(s): R62.7 - Adult failure to thrive Plan Recurrent Major Depression, Failure to Thrive, Rule out MCI. Plan: Admit, CV, 15 minute checks Labs, diagnostics MRI-terry Collateral contacts Decrease Levothyroxine to 37.5 mg daily and Liothyronine to 2.5 mg daily (consult with hospitalist Dr. Celio as TSH is 0.01 today and yesterday. Med trials when diagnostics are completed MOCA today . 08/16: Continue plan of care ?ECT consult. ?Mood stabilizer trial 08/17: Continue Wellbutrin ?MAOI trial Declines ECT consult due to her concern about her memory 08/19: Increase Wellbutrin to 75 mg a.m. Family meeting 08/20. 08/20: continue current tx plan. Patient educated on: diagnosis and medication risk/benefits Reason for continued inpatient stay Substantial Risk for: med/psych decompensation Time Spent With Patient Time: Total time managing care of this patient today _20___ minutes. Documented by User: Shadi Aguayo MD 08/23/24 09:28 Subjective Subjective Reason For Visit: Depression, Rule out MCI Diagnostics Labs 08/12/24 12:10 08/12/24 12:10 Assessment & Plan Assessment & Plan (1) Recurrent major depression: Status: Acute Code(s): F33.9 - Major depressive disorder, recurrent, unspecified (2) Adult failure to thrive: Status: Acute Code(s): R62.7 - Adult failure to thrive Plan Recurrent Major Depression, Failure to Thrive, Rule out MCI. 08/16: Continue plan of care ?ECT consult. ?Mood stabilizer trial 08/17: Continue Wellbutrin ?MAOI trial Declines ECT consult due to her concern about her memory 08/19: Increase Wellbutrin to 75 mg a.m. Family meeting 08/20. 08/20: continue current tx plan. 08/20 service writer advisor, (Dr. Aguayo) also met with patient, sister and [id number] to discuss history of depression, medication management and possible ECT treatment. Patient reports that this is the worst episode of depression she has ever had including her previous hospitalization about a year and a half ago. After that last admission, Patient reports she was started on Paxil and Strattera and did quite well for the next 9-10 months, which family agrees. She is not sure why, but depression started to creep back in which continued until it became severe (no ADLs, not leaving house, family bringing her food and all of the other neurovegetative symptoms of depression other than SI). Patient reports she also did well on Wellbutrin XL 150 mg and Lexapro. 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 Discussed ECT, risks/potential side effects versus potential benefit. Warp Worker agrees that it is prudent to 1st pursue medication management at this time while keeping ECT as an option, with which patient fully agrees. -switch Wellbutrin to XL 150 mg -will continue Lexapro 20 mg; QTC WNL and patient has no history of any cardiac issues so it remains an option to increase -will also consider restarting Strattera which patient said significantly helped her focus her thinking; Adderall/Ritalin also options -it is also possible to potentially combine Wellbutrin and Paxil which remains an option if patient remains only partially treated Plan: Admit, CV, 15 minute checks Labs, diagnostics START Wellbutrin to XL 150 mg MRI-brain; EEG recs per neuro Collateral contacts Decrease Levothyroxine to 37.5 mg daily and Liothyronine to 2.5 mg daily (consult with hospitalist Dr. Pickens as TSH is 0.01 today and yesterday. Med trials when diagnostics are completed MOCA today 24.
[2024-08-20] MEDS: traZODone HCL 100 MG TABLET PO (21:12)
[2024-08-20] MEDS: LORazepam 0.5 MG TABLET PO (21:12)
--- NOTE | 2024-08-20 22:01 | HO.PM.IMCN ---
History of Present Illness Data of Consult Service Date: 08/20/24 Requesting physician: Aide Hercules Primary Care Provider: Unknown Physician HPI Reason for consult: ECT risk stratification Patient is a 69-year-old female with a past medical history significant for hypothyroidism and major depression, admitted to adult Psychiatry due to major depression and anxiety, consulted for ECT risk stratification. She has no current medical concerns including chest pain, shortness of breath, fever, chills, headache, abdominal pain, numbness, tingling or urinary symptoms. She denies any personal history of cardiac issues including and arrhythmia, DC, HTN or CHF. Chest 2 denies any pulmonary issues including COPD, asthma or obstructive sleep apnea. She has no history of seizures, stroke or space-occupying brain lesion. She denies any history of a bleeding disorder or issues with anesthesia. Review of Systems Constitutional: Constitutional: Denies chills, Denies fatigue, Denies fever(s) and Denies headache(s) Eyes: Eyes: Denies change in vision ENT: Denies headache(s), Denies nasal congestion, Denies nasal discharge, Denies neck pain and Denies sore throat Cardiovascular: Cardiovascular: Denies chest pain, Denies rapid heart rate, Denies leg edema and Denies dyspnea Respiratory: Respiratory: Denies chest congestion, Denies cough, Denies dyspnea and Denies wheezing Gastrointestinal: Gastrointestinal: Denies constipation, Denies diarrhea, Denies nausea and Denies vomiting Genitourinary: Genitourinary: Denies dysuria and Denies urinary urgency Musculoskeletal: Musculoskeletal: Denies muscle cramps, Denies neck pain, Denies numbness and Denies tingling Integumentary/Breasts: Skin/Breast: Denies rash Neurologic: Denies confusion, Denies headache(s), Denies numbness, Denies seizure-like activity and Denies tingling Psychiatric: Psychiatric: Reports as per HPI, Denies confusion and Reports depression Endocrine: Endocrine: Denies fatigue Hematologic/Lymphatic: Hematologic/Lymphatic: Denies easy bleeding and Denies easy bruising Allergic/Immunologic: Allergic/Immunologic: Denies wheezing [facility] Medical History (Updated 08/20/24 @ 22:05 by Agnes Matamoros PA-C) Hypothyroid Recurrent major depression Functional capacity: independent ambulation Social History Household Members: None Housing: Apartment Do you presently have visiting nurse or other home services: No (Patient would like home services) Patient Tobacco Use Status: Never used Tobacco Smoked in Last 30 Days: No e-Cigarette/Vaping Use: Never Used Patient Interested in Nicotine Replacement: No Patient Given Instructions on How to Stop Smoking: No Second Hand Smoke Exposure: No Use of substances other than those prescribed or required for medical reasons: No Currently Displaying Signs/Symptoms of Drug Intoxication Withdrawal: No Any prior treatment program specific to substance use: No Have you been hit, kicked, punched, or otherwise hurt by someone within the past year? If so, by whom?: No Do you feel safe in your current relationship?: No Current Relationship Is there a partner from a previous relationship who is making you feel unsafe now?: No Are you made to feel afraid or neglected: No Advance Directives: No Advance Directives Information Provided: Yes Do you have thoughts of harming others: None Do you have a plan to hurt others: No Plan Recently lost weight without trying: Yes How much weight loss: 24-33 pounds Eating poorly because of decreased appetite: Yes Nutrition screen score: 6 Nutrition Risks: Poor intake 0-25% >4 days Patient : No : No Poor oral hygiene: Yes service: No Sexual orientation: Straight/Heterosexual Meds Allergies Allergy/AdvReac Type Severity Reaction Status Date / Time No Known Allergies Allergy Verified 08/12/24 11:51 Active Medications: Current Medications Acetaminophen (Acetaminophen 325 Mg Tablet) 650 mg PO Q6H PRN PRN Reason: Headache/Pain Mild Scale (1-3) Al Hydroxide/Mg Hydroxide (Magnesium Hydrox/Alum Hydrox 30 Ml Oral.Susp) 30 ml PO Q6H PRN PRN Reason: Heartburn/Nausea Bupropion HCl (Bupropion Hcl Xl 150 Mg Tab.Er.24h) 150 mg PO DAILY [facility] Escitalopram Oxalate (Escitalopram Oxalate 20 Mg Tablet) 20 mg PO DAILY [facility] Last Admin: 08/20/24 08:35 Dose: 20 mg Hydroxyzine HCl (Hydroxyzine Hcl 25 Mg Tablet) 25 mg PO Q6H PRN PRN Reason: Anxiety Levothyroxine Sodium (Levothyroxine Sodium 75 Mcg Tablet) 37.5 mcg PO DAILY@0600 [facility] Last Admin: 08/20/24 06:17 Dose: 37.5 mcg Lorazepam (Lorazepam 0.5 Mg Tablet) 0.5 mg PO Q8H PRN PRN Reason: Anxiety Last Admin: 08/20/24 21:12 Dose: 0.5 mg Magnesium Hydroxide (Milk Of Magnesia 30 Ml Oral.Susp) 30 ml PO DAILY PRN PRN Reason: Constipation Last Admin: 08/19/24 17:44 Dose: 30 ml Nicotine Polacrilex (Nicotine Polacrilex 2 Mg Gum) 4 mg BUCCAL Q2H PRN PRN Reason: Nicotine Cravings Non-Formulary Medication (Liothyronine) 2.5 mcg PO DAILY@0600 [facility] Last Admin: 08/20/24 06:17 Dose: 2.5 mcg Trazodone HCl (Trazodone Hcl 100 Mg Tablet) 100 mg PO BEDTIME [facility] Last Admin: 08/20/24 21:12 Dose: 100 mg Home Medications ?Medication ?Instructions ?Recorded ?Confirmed ?Last Taken ?Type escitalopram oxalate 20 mg tablet 20 mg PO DAILY 08/12/24 08/12/24 08/12/24 History levothyroxine 75 mcg tablet 75 mcg PO QAM 08/12/24 08/12/24 08/12/24 History liothyronine 5 mcg tablet 5 mcg PO DAILY 08/12/24 08/12/24 08/12/24 History trazodone 50 mg tablet 50 - 100 mg PO BEDTIME PRN Insomnia 08/12/24 08/12/24 08/11/24 History Physical Exam Vital Signs and Narrative: Vital Signs: Last Vital Signs Temp 97.8 F 08/20/24 07:53 Pulse 74 08/20/24 07:53 Resp 16 08/20/24 07:53 BP 96/54 L 08/20/24 07:53 Pulse Ox 96 08/20/24 07:53 O2 Del Method Room Air 08/20/24 07:53 BMI result Body Mass Index 21.0 General: AOx3, no acute distress Resp: CTA bilaterally CVS: S1, S2, RRR GI: +BS, NT, no distention Skin: Warm, dry Neuro: Cranial nerves II-XII grossly intact bilaterally. Motor grossly intact bilaterally Extremities: No LE edema Psych: Appropriate affect Const: General: No confusion Orientation/consciousness: No confusion Neuro: General: No confusion Results Labs 08/12/24 12:10 08/12/24 12:10 Assessment and Plan (1) Preprocedural examination: Status: Acute (2) Recurrent major depression: Status: Acute Plan Patient is a 69-year-old female with a past medical history significant for hypothyroidism and major depression, admitted to adult Psychiatry due to major depression and anxiety, consulted for ECT risk stratification. Based on past medical history and exam there are no apparent medical contraindications to ECT. EKG normal without QT prolongation. Anesthesia risk stratification as per anesthesia. RCRI risk class 0. No further treatment or workup indicated at this time. Thank you for allowing me to participate in the pt's care. Signing off for now. Please contact the medical team if any questions or concerns.
[2024-08-21] MEDS: Levothyroxine Sodium 75 MCG TABLET 37.5 MCG PO (06:32)
[2024-08-21 07:41] VITALS: RESP 18
[2024-08-21] MEDS: buPROPion HCl XL 150 MG TAB.ER.24H PO (08:34)
[2024-08-21] MEDS: Escitalopram Oxalate 20 MG TABLET PO (08:34)
--- NOTE | 2024-08-21 11:33 | P.PNPSI_ITS ---
Subjective Subjective Date of Service: 08/21/24 Reason For Visit: Depression, Rule out MCI Interim History: Met with patient; discussed with team Patient still quite depressed but says no problem with wellbutrin and felt it was noteworthy that today she took a shower today which helped her feel better; patient agreed with behavioral activation Discussed insomnia and trazodone seems to work well enough (mirtazapine cause excessive sleepiness the next day) Patient discussed challenges of depression, worried about losing her career as well as her identity. Patient shared about history, regrets, conflicted feelings over past decisions; Patient feels overwhelmed with being on a psychiatric unit though she also understands the need to treat her depression at this time Mental Status Exam Mental Status Exam Narrative: Pt is alert and oriented; behavior is cooperative, isolative; patient is not in distress; dressed in casual attire, adequately groomed and improved hygiene; mood is described as depressed and affect congruent, downcast, tearful; eye contact appropriate; Speech is normal rate, volume and prosody and not pressured; psychomotor retardation present; thought process is organized and goal directed; Thought content is struggling with hopelessness, anxiety about not getting well; treatment; otherwise pertinent to relevant topics and without any delusional content, paranoid ideations or grandiosity; denies any SI/HI. There is no evidence of perceptual disturbance. Patients insight and judgment impaired Diagnostics Vital Signs (24Hr): Vital Signs - 24 hr 08/21/24 07:41 Respiratory Rate 18 BMI result Body Mass Index 21.0 Labs 08/12/24 12:10 08/12/24 12:10 Imaging Radiology Impressions: ITS Impressions Brain MRI 08/13/24 12:40 IMPRESSION: 1. No acute intracranial abnormalities. 2. Chronic microangiopathy. Electronically signed by: Dina Benton MD 08/13/2024 02:03 PM SEE Medications Medications Current Medications Acetaminophen (Acetaminophen 325 Mg Tablet) 650 mg PO Q6H PRN PRN Reason: Headache/Pain Mild Scale (1-3) Al Hydroxide/Mg Hydroxide (Magnesium Hydrox/Alum Hydrox 30 Ml Oral.Susp) 30 ml PO Q6H PRN PRN Reason: Heartburn/Nausea Bupropion HCl (Bupropion Hcl Xl 150 Mg Tab.Er.24h) 150 mg PO DAILY [facility] Last Admin: 08/21/24 08:34 Dose: 150 mg Escitalopram Oxalate (Escitalopram Oxalate 20 Mg Tablet) 20 mg PO DAILY [facility] Last Admin: 08/21/24 08:34 Dose: 20 mg Hydroxyzine HCl (Hydroxyzine Hcl 25 Mg Tablet) 25 mg PO Q6H PRN PRN Reason: Anxiety Levothyroxine Sodium (Levothyroxine Sodium 75 Mcg Tablet) 37.5 mcg PO DAILY@0600 [facility] Last Admin: 08/21/24 06:32 Dose: 37.5 mcg Lorazepam (Lorazepam 0.5 Mg Tablet) 0.5 mg PO Q8H PRN PRN Reason: Anxiety Last Admin: 08/20/24 21:12 Dose: 0.5 mg Magnesium Hydroxide (Milk Of Magnesia 30 Ml Oral.Susp) 30 ml PO DAILY PRN PRN Reason: Constipation Last Admin: 08/19/24 17:44 Dose: 30 ml Nicotine Polacrilex (Nicotine Polacrilex 2 Mg Gum) 4 mg BUCCAL Q2H PRN PRN Reason: Nicotine Cravings Non-Formulary Medication (Liothyronine) 2.5 mcg PO DAILY@0600 [facility] Last Admin: 08/21/24 06:32 Dose: 2.5 mcg Trazodone HCl (Trazodone Hcl 100 Mg Tablet) 100 mg PO BEDTIME [facility] Last Admin: 08/20/24 21:12 Dose: 100 mg Allergies Allergies Allergy/AdvReac Type Severity Reaction Status Date / Time No Known Allergies Allergy Verified 08/12/24 11:51 Assessment & Plan Assessment & Plan (1) Recurrent major depression: Status: Acute Code(s): F33.9 - Major depressive disorder, recurrent, unspecified (2) Adult failure to thrive: Status: Acute Code(s): R62.7 - Adult failure to thrive Plan Recurrent Major Depression, Failure to Thrive, Rule out MCI. 08/16: Continue plan of care ?ECT consult. ?Mood stabilizer trial 08/17: Continue Wellbutrin ?MAOI trial Declines ECT consult due to her concern about her memory 08/19: Increase Wellbutrin to 75 mg a.m. Family meeting 08/20. 08/20: continue current tx plan. 08/20 bond writer, (Dr. Aguayo) also met with patient, sister and [id number] to discuss history of depression, medication management and possible ECT treatment. Patient reports that this is the worst episode of depression she has ever had including her previous hospitalization about a year and a half ago. After that last admission, Patient reports she was started on Paxil and Strattera and did quite well for the next 9-10 months, which family agrees. She is not sure why, but depression started to creep back in which continued until it became severe (no ADLs, not leaving house, family bringing her food and all of the other neurovegetative symptoms of depression other than SI). Patient reports she also did well on Wellbutrin XL 150 mg and Lexapro. 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 Discussed ECT, risks/potential side effects versus potential benefit. Power Lineman Technician agrees that it is prudent to 1st pursue medication management at this time while keeping ECT as an option, with which patient fully agrees. -switch Wellbutrin to XL 150 mg -will continue Lexapro 20 mg; QTC WNL and patient has no history of any cardiac issues so it remains an option to increase -will also consider restarting Strattera which patient said significantly helped her focus her thinking; Adderall/Ritalin also options -it is also possible to potentially combine Wellbutrin and Paxil which remains an option if patient remains only partially treated 08/21/24 Patient still quite depressed but says no problem with wellbutrin and felt it was noteworthy that today she took a shower today which helped her feel better; patient agreed with behavioral activation Discussed insomnia and trazodone seems to work well enough (mirtazapine cause excessive sleepiness the next day) Patient discussed challenges of depression, worried about losing her career as well as her identity. Patient shared about history, regrets, conflicted feelings over past decisions; Patient feels overwhelmed with being on a psychiatric unit though she also understands the need to treat her depression at this time Plan: Admit, CV, 15 minute checks Labs, diagnostics Continue Wellbutrin to XL 150 mg Consider MRI-brain (per neuro; will wait for EEG results) EEG recs per neuro Collateral contacts Decrease Levothyroxine to 37.5 mg daily and Liothyronine to 2.5 mg daily (consult with hospitalist Dr. Pickens as TSH is 0.01 today and yesterday. Med trials when diagnostics are completed MOCA today 24 (due to depression??) Patient educated on: diagnosis, medication risk/benefits and therapeutic strategies Informed Consent: understands Reason for continued inpatient stay Substantial Risk for: rapid decompensation Time Spent With Patient Time: Total time managing care of this patient today ____ minutes.
[2024-08-21] MEDS: traZODone HCL 100 MG TABLET PO (21:23)
[2024-08-21] MEDS: Milk of Magnesia 30 ML ORAL.SUSP PO (21:23)
[2024-08-22 07:00] VITALS: BMI 22.1
[2024-08-22 08:00] VITALS: RESP 16
[2024-08-22] MEDS: Levothyroxine Sodium 75 MCG TABLET 37.5 MCG PO (08:07)
[2024-08-22] MEDS: Escitalopram Oxalate 20 MG TABLET PO (08:59)
[2024-08-22] MEDS: buPROPion HCl XL 150 MG TAB.ER.24H PO (08:59)
[2024-08-22] MEDS: LORazepam 1 MG TABLET PO (10:03)
[2024-08-22 16:58] VITALS: BP 107/55; PULSE 74; RESP 16; TEMP 36.8; O2SAT 97
[2024-08-22] MEDS: polyethylene glycoL 3350 17 GM POWD.PACK PO (17:36)
[2024-08-22] MEDS: traZODone HCL 100 MG TABLET PO (20:03)
[2024-08-22] MEDS: Doxepin HCl 10 MG CAPSULE PO (20:03)
[2024-08-23] MEDS: Levothyroxine Sodium 75 MCG TABLET 37.5 MCG PO (06:44)
[2024-08-23 08:00] VITALS: BP 95/58
[2024-08-23] MEDS: Escitalopram Oxalate 20 MG TABLET PO (08:35)
[2024-08-23] MEDS: buPROPion HCl XL 150 MG TAB.ER.24H PO (08:36)
--- NOTE | 2024-08-23 09:27 | HO.PSYCHPN ---
Subjective Subjective Date of Service: 08/22/24 Reason For Visit: Depression, Rule out MCI Interim History: late entry note for patient seen on 08/22/24; discussed with team discussed panic attack and she agrees it might have been due to excessive worries rather than Wellbutrin (which she has tolerated for years in the past); just prior to panic attack, she was perseverating on never getting better, losing her therapy practice, the stigma of ECT defining her as a mental patient. Patient agreed to continue with Wellbutrin. Talked about behavioral activation further; talked about ECT and patient appreciated postponing ECT decision until next week and right now just focusing on medication management. Patient had trouble sleeping; discussed options and she agreed to start doxepin Mental Status Exam Mental Status Exam Narrative: Pt is alert and oriented; behavior is cooperative, isolative; patient is not in distress; dressed in casual attire, adequately groomed and improved hygiene; mood is described as not good and affect congruent, downcast, tearful; eye contact appropriate; Speech is normal rate, volume and prosody and not pressured; psychomotor retardation present; thought process is organized and goal directed; Thought content is struggling with hopelessness, anxiety about not getting well; treatment; otherwise pertinent to relevant topics and without any delusional content, paranoid ideations or grandiosity; denies any SI/HI. There is no evidence of perceptual disturbance. Patients insight and judgment impaired Diagnostics Vital Signs (24Hr): Vital Signs - 24 hr 08/22/24 16:58 08/23/24 08:00 Temperature 98.2 F Pulse Rate 74 Respiratory Rate 16 Blood Pressure 107/55 L 95/58 L Pulse Oximetry 97 Oxygen Delivery Method Room Air BMI result Body Mass Index 22.1 Labs 08/12/24 12:10 08/12/24 12:10 Imaging Radiology Impressions: ITS Impressions Brain MRI 08/13/24 12:40 IMPRESSION: 1. No acute intracranial abnormalities. 2. Chronic microangiopathy. Electronically signed by: Dina Benton MD 08/13/2024 02:03 PM SEE [facility] Medications Medications Current Medications Acetaminophen (Acetaminophen 325 Mg Tablet) 650 mg PO Q6H PRN PRN Reason: Headache/Pain Mild Scale (1-3) Al Hydroxide/Mg Hydroxide (Magnesium Hydrox/Alum Hydrox 30 Ml Oral.Susp) 30 ml PO Q6H PRN PRN Reason: Heartburn/Nausea Bupropion HCl (Bupropion Hcl Xl 150 Mg Tab.Er.24h) 150 mg PO DAILY [facility] Last Admin: 08/23/24 08:36 Dose: 150 mg Doxepin HCl (Doxepin Hcl 10 Mg Capsule) 10 mg PO BEDTIME [facility] Last Admin: 08/22/24 20:03 Dose: 10 mg Escitalopram Oxalate (Escitalopram Oxalate 20 Mg Tablet) 20 mg PO DAILY [facility] Last Admin: 08/23/24 08:35 Dose: 20 mg Hydroxyzine HCl (Hydroxyzine Hcl 25 Mg Tablet) 25 mg PO Q6H PRN PRN Reason: Anxiety Levothyroxine Sodium (Levothyroxine Sodium 75 Mcg Tablet) 37.5 mcg PO DAILY@0600 [facility] Last Admin: 08/23/24 06:44 Dose: 37.5 mcg Lorazepam (Lorazepam 1 Mg Tablet) 1 mg PO DAILY PRN PRN Reason: severe anxiety Magnesium Hydroxide (Milk Of Magnesia 30 Ml Oral.Susp) 30 ml PO DAILY PRN PRN Reason: Constipation Last Admin: 08/21/24 21:23 Dose: 30 ml Nicotine Polacrilex (Nicotine Polacrilex 2 Mg Gum) 4 mg BUCCAL Q2H PRN PRN Reason: Nicotine Cravings Non-Formulary Medication (Liothyronine) 2.5 mcg PO DAILY@0600 [facility] Last Admin: 08/23/24 06:45 Dose: 2.5 mcg Polyethylene Glycol (Polyethylene Glycol 3350 17 Gm Powd.Pack) 17 gm PO DAILY [facility] Trazodone HCl (Trazodone Hcl 100 Mg Tablet) 100 mg PO BEDTIME [facility] Last Admin: 08/22/24 20:03 Dose: 100 mg Allergies Allergies Allergy/AdvReac Type Severity Reaction Status Date / Time No Known Allergies Allergy Verified 08/12/24 11:51 Assessment & Plan Assessment & Plan (1) Recurrent major depression: Status: Acute Code(s): F33.9 - Major depressive disorder, recurrent, unspecified (2) Adult failure to thrive: Status: Acute Code(s): R62.7 - Adult failure to thrive Plan Recurrent Major Depression, Failure to Thrive, Rule out MCI. 08/16: Continue plan of care ?ECT consult. ?Mood stabilizer trial 08/17: Continue Wellbutrin ?MAOI trial Declines ECT consult due to her concern about her memory 08/19: Increase Wellbutrin to 75 mg a.m. Family meeting 08/20. 08/20: continue current tx plan. 08/20 chief underwriter, (Dr. Aguayo) also met with patient, sister and [id number] to discuss history of depression, medication management and possible ECT treatment. Patient reports that this is the worst episode of depression she has ever had including her previous hospitalization about a year and a half ago. After that last admission, Patient reports she was started on Paxil and Strattera and did quite well for the next 9-10 months, which family agrees. She is not sure why, but depression started to creep back in which continued until it became severe (no ADLs, not leaving house, family bringing her food and all of the other neurovegetative symptoms of depression other than SI). Patient reports she also did well on Wellbutrin XL 150 mg and Lexapro. 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 Discussed ECT, risks/potential side effects versus potential benefit. Net Ui Developer agrees that it is prudent to 1st pursue medication management at this time while keeping ECT as an option, with which patient fully agrees. -switch Wellbutrin to XL 150 mg -will continue Lexapro 20 mg; QTC WNL and patient has no history of any cardiac issues so it remains an option to increase -will also consider restarting Strattera which patient said significantly helped her focus her thinking; Adderall/Ritalin also options -it is also possible to potentially combine Wellbutrin and Paxil which remains an option if patient remains only partially treated 08/21/24 Patient still quite depressed but says no problem with wellbutrin and felt it was noteworthy that today she took a shower today which helped her feel better; patient agreed with behavioral activation Discussed insomnia and trazodone seems to work well enough (mirtazapine cause excessive sleepiness the next day) 2 discussed panic attack and she agrees it might have been due to excessive worries rather than Wellbutrin (which she has tolerated for years in the past); just prior to panic attack, she was perseverating on never getting better, losing her therapy practice, the stigma of ECT defining her as a mental patient. Patient agreed to continue with Wellbutrin. Talked about behavioral activation further; talked about ECT and patient appreciated postponing ECT decision until next week and right now just focusing on medication management. Patient had trouble sleeping; discussed options and she agreed to start doxepin Patient discussed challenges of depression, worried about losing her career as well as her identity. Patient shared about history, regrets, conflicted feelings over past decisions; Patient feels overwhelmed with being on a psychiatric unit though she also understands the need to treat her depression at this time Plan: Admit, 3 day 15 minute checks Labs, diagnostics START Doxepin 10mg qhs Continue Wellbutrin to XL 150 mg Consider MRI-brain (per neuro; will wait for EEG results) EEG recs per neuro Collateral contacts Decrease Levothyroxine to 37.5 mg daily and Liothyronine to 2.5 mg daily (consult with hospitalist Dr. Pickens as TSH is 0.01 today and yesterday. Med trials when diagnostics are completed MOCA today 24 (due to depression??) Patient educated on: diagnosis, medication risk/benefits, ECT and therapeutic strategies Informed Consent: understands Reason for continued inpatient stay Substantial Risk for: rapid decompensation Time Spent With Patient Time: Total time managing care of this patient today ____ minutes.
--- NOTE | 2024-08-23 09:27 | HO.PSYCHPN ---
Subjective Subjective Date of Service: 08/23/24 Reason For Visit: Depression, Rule out MCI Interim History: met with patient; discussed with team Patient remains depressed. She says that she is anxious to point of being incapacitated which is depressing; she says she just wants to sleep all day and that she does not want to be in the hospital. She says she feels like she has given up. Envelope Folding Machine Operator discussed again behavioral activation and patient said she understands this and will try to push herself to do so. She again says I am not doing that well... Patient again thought that perhaps Wellbutrin was causing her to shake however she again agreed to continue with Wellbutrin, persuaded by the fact that she had been on this dose in the past and done well and that she maybe misinterpreting her shaking. Due to excessive anxiety she agreed to start clonazepam during the day Diagnostics Vital Signs (24Hr): Vital Signs - 24 hr 08/22/24 16:58 08/23/24 08:00 Temperature 98.2 F Pulse Rate 74 Respiratory Rate 16 Blood Pressure 107/55 L 95/58 L Pulse Oximetry 97 Oxygen Delivery Method Room Air BMI result Body Mass Index 22.1 Labs 08/12/24 12:10 08/12/24 12:10 Imaging Radiology Impressions: ITS Impressions Brain MRI 08/13/24 12:40 IMPRESSION: 1. No acute intracranial abnormalities. 2. Chronic microangiopathy. Electronically signed by: Dina Benton MD 08/13/2024 02:03 PM [facility] [place] Medic[place] Medications Current Medications Acetaminophen (Acetaminophen 325 Mg Tablet) 650 mg PO Q6H PRN PRN Reason: Headache/Pain Mild Scale (1-3) Al Hydroxide/Mg Hydroxide (Magnesium Hydrox/Alum Hydrox 30 Ml Oral.Susp) 30 ml PO Q6H PRN PRN Reason: Heartburn/Nausea Bupropion HCl (Bupropion Hcl Xl 150 Mg Tab.Er.24h) 150 mg PO DAILY [facility] Last Admin: 08/23/24 08:36 Dose: 150 mg Doxepin HCl (Doxepin Hcl 10 Mg Capsule) 10 mg PO BEDTIME [facility] Last Admin: 08/22/24 20:03 Dose: 10 mg Escitalopram Oxalate (Escitalopram Oxalate 20 Mg Tablet) 20 mg PO DAILY [facility] Last Admin: 08/23/24 08:35 Dose: 20 mg Hydroxyzine HCl (Hydroxyzine Hcl 25 Mg Tablet) 25 mg PO Q6H PRN PRN Reason: Anxiety Levothyroxine Sodium (Levothyroxine Sodium 75 Mcg Tablet) 37.5 mcg PO DAILY@0600 [facility] Last Admin: 08/23/24 06:44 Dose: 37.5 mcg Lorazepam (Lorazepam 1 Mg Tablet) 1 mg PO DAILY PRN PRN Reason: severe anxiety Magnesium Hydroxide (Milk Of Magnesia 30 Ml Oral.Susp) 30 ml PO DAILY PRN PRN Reason: Constipation Last Admin: 08/21/24 21:23 Dose: 30 ml Nicotine Polacrilex (Nicotine Polacrilex 2 Mg Gum) 4 mg BUCCAL Q2H PRN PRN Reason: Nicotine Cravings Non-Formulary Medication (Liothyronine) 2.5 mcg PO DAILY@0600 [facility] Last Admin: 08/23/24 06:45 Dose: 2.5 mcg Polyethylene Glycol (Polyethylene Glycol 3350 17 Gm Powd.Pack) 17 gm PO DAILY [facility] Trazodone HCl (Trazodone Hcl 100 Mg Tablet) 100 mg PO BEDTIME [facility] Last Admin: 08/22/24 20:03 Dose: 100 mg Allergies Allergies Allergy/AdvReac Type Severity Reaction Status Date / Time No Known Allergies Allergy Verified 08/12/24 11:51 Assessment & Plan Assessment & Plan (1) Recurrent major depression: Status: Acute Code(s): F33.9 - Major depressive disorder, recurrent, unspecified (2) Adult failure to thrive: Status: Acute Code(s): R62.7 - Adult failure to thrive Plan Recurrent Major Depression, Failure to Thrive, Rule out MCI. 08/16: Continue plan of care ?ECT consult. ?Mood stabilizer trial 08/17: Continue Wellbutrin ?MAOI trial Declines ECT consult due to her concern about her memory 08/19: Increase Wellbutrin to 75 mg a.m. Family meeting 08/20. 08/20: continue current tx plan. 08/20 filing writer, (Dr. Aguayo) also met with patient, sister and [id number] to discuss history of depression, medication management and possible ECT treatment. Patient reports that this is the worst episode of depression she has ever had including her previous hospitalization about a year and a half ago. After that last admission, Patient reports she was started on Paxil and Strattera and did quite well for the next 9-10 months, which family agrees. She is not sure why, but depression started to creep back in which continued until it became severe (no ADLs, not leaving house, family bringing her food and all of the other neurovegetative symptoms of depression other than SI). Patient reports she also did well on Wellbutrin XL 150 mg and Lexapro. 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 Discussed ECT, risks/potential side effects versus potential benefit. Envelope Folding Machine Operator agrees that it is prudent to 1st pursue medication management at this time while keeping ECT as an option, with which patient fully agrees. -switch Wellbutrin to XL 150 mg -will continue Lexapro 20 mg; QTC WNL and patient has no history of any cardiac issues so it remains an option to increase -will also consider restarting Strattera which patient said significantly helped her focus her thinking; Adderall/Ritalin also options -it is also possible to potentially combine Wellbutrin and Paxil which remains an option if patient remains only partially treated 08/21/24 Patient still quite depressed but says no problem with wellbutrin and felt it was noteworthy that today she took a shower today which helped her feel better; patient agreed with behavioral activation Discussed insomnia and trazodone seems to work well enough (mirtazapine cause excessive sleepiness the next day) discussed panic attack and she agrees it might have been due to excessive worries rather than Wellbutrin (which she has tolerated for years in the past); just prior to panic attack, she was perseverating on never getting better, losing her therapy practice, the stigma of ECT defining her as a mental patient. Patient agreed to continue with Wellbutrin. Talked about behavioral activation further; talked about ECT and patient appreciated postponing ECT decision until next week and right now just focusing on medication management. Patient had trouble sleeping; discussed options and she agreed to start doxepin -Patient discussed challenges of depression, worried about losing her career as well as her identity. Patient shared about history, regrets, conflicted feelings over past decisions; Patient feels overwhelmed with being on a psychiatric unit though she also understands the need to treat her depression at this time 1/2 discussed panic attack and she agrees it might have been due to excessive worries rather than Wellbutrin (which she has tolerated for years in the past); just prior to panic attack, she was perseverating on never getting better, losing her therapy practice, the stigma of ECT defining her as a mental patient. Patient agreed to continue with Wellbutrin. Talked about behavioral activation further; talked about ECT and patient appreciated postponing ECT decision until next week and right now just focusing on medication management. Patient had trouble sleeping; discussed options and she agreed to start doxepin 08/23 Patient said she did sleep better last night with doxepin. She remains depressed. She says that she is anxious to point of being incapacitated which is depressing; she says she just wants to sleep all day and that she does not want to be in the hospital. She says she feels like she has given up. Envelope Folding Machine Operator discussed again behavioral activation and patient said she understands this and will try to push herself to do so. She again says I am not doing that well... Patient again thought that perhaps Wellbutrin was causing her to shake however she again agreed to continue with Wellbutrin, persuaded by the fact that she had been on this dose in the past and done well and that she maybe misinterpreting her shaking. Due to excessive anxiety she agreed to start clonazepam during the day; discussed and patient said she will use a low-dose so as not to be too tired -patient has put in a 3 day notice and is ambivalent about whether not she will remain on the unit for treatment; ambivalent about ECT Plan: Admit, CV, 15 minute checks Labs, diagnostics START clonazepam 0.25 mg 0 900, 1700 for excessive anxiety Continue Wellbutrin to XL 150 mg Continue doxepin 10 mg q.h.s. Consider MRI-brain (per neuro; will wait for EEG results) EEG recs per neuro Collateral contacts Decrease Levothyroxine to 37.5 mg daily and Liothyronine to 2.5 mg daily (consult with hospitalist Dr. Pickens as TSH is 0.01 today and yesterday. Med trials when diagnostics are completed MOCA today 24 (due to depression??) Patient educated on: diagnosis, medication risk/benefits and therapeutic strategies Informed Consent: understands Reason for continued inpatient stay Substantial Risk for: rapid decompensation Time Spent With Patient Time: Total time managing care of this patient today ____ minutes.
[2024-08-23] MEDS: clonazePAM 0.5 MG TABLET 0.25 MG PO (14:05)
[2024-08-23] MEDS: traZODone HCL 100 MG TABLET PO (22:01)
[2024-08-23] MEDS: Doxepin HCl 10 MG CAPSULE PO (22:03)
[2024-08-24] MEDS: Levothyroxine Sodium 75 MCG TABLET 37.5 MCG PO (07:32)
[2024-08-24 08:00] VITALS: BP 116/56; PULSE 84; RESP 18; TEMP 36.7; O2SAT 97
[2024-08-24] MEDS: Escitalopram Oxalate 20 MG TABLET PO (08:49)
[2024-08-24] MEDS: buPROPion HCl XL 150 MG TAB.ER.24H PO (08:49)
[2024-08-24] MEDS: clonazePAM 0.5 MG TABLET 0.25 MG PO ×2 (08:49→14:21)
[2024-08-24] MEDS: polyethylene glycoL 3350 17 GM POWD.PACK PO (08:50)
--- NOTE | 2024-08-24 08:53 | HO.PSYCHPN ---
Subjective Subjective Date of Service: 08/24/24 Reason For Visit: Depression, Rule out MCI Subjective Notes: 3 Day Healthcare Proxy: No Guardianship: No Medical Problems Affecting Mental Status: No Interim History: 69 yo WF with depression with low energy now having tremor on wellbutrin- but not noticed today by provider- pt reported she is riding out s/e as dr aguayo suggested- and pt is looking forward to nh Monday- has plans to go back to her life - after sister had rescued her prior to holidays with severe withdrawn depression - low energy- hoping wellbutrin will help. denies current si - sleeps too much when pt asked about sleep Medication Compliance: Yes Side effects from medications: Yes (reports tremor not witnessed today) Attending Groups: Intermittent Review of Systems Acute medical concerns: No Medical Review of Systems: unchanged Mental Status Exam Mental Status Exam Patient Appearance: Well Grooomed Patient Orientation: Person, Place and Situation Level of Consciousness: Awake Patient Behavior: Appropriate and Cooperative Mood Description: Calm Affect Description: Appropriate Ability to Follow Directions: Fair Speech Pattern: Clear Hallucinations: None Delusions: Not Present Thought Process: Intact and Goal Oriented Depressive Symptoms: Loss of Energy Judgement: Fair Diagnostics Vital Signs (24Hr): Vital Signs - 24 hr 08/24/24 08:00 Temperature 98.0 F Pulse Rate 84 Respiratory Rate 18 Blood Pressure 116/56 L Pulse Oximetry 97 Oxygen Delivery Method Room Air BMI result Body Mass Index 22.1 Labs 08/12/24 12:10 08/12/24 12:10 Imaging Radiology Impressions: ITS Impressions Brain MRI 08/13/24 12:40 IMPRESSION: 1. No acute intracranial abnormalities. 2. Chronic microangiopathy. Electronically signed by: Dina Benton MD 08/13/2024 02:03 PM [facility] Medications Medications Current Medications Acetaminophen (Acetaminophen 325 Mg Tablet) 650 mg PO Q6H PRN PRN Reason: Headache/Pain Mild Scale (1-3) Al Hydroxide/Mg Hydroxide (Magnesium Hydrox/Alum Hydrox 30 Ml Oral.Susp) 30 ml PO Q6H PRN PRN Reason: Heartburn/Nausea Bupropion HCl (Bupropion Hcl Xl 150 Mg Tab.Er.24h) 150 mg PO DAILY [facility] Last Admin: 08/24/24 08:49 Dose: 150 mg Clonazepam (Clonazepam 0.5 Mg Tablet) 0.25 mg PO BID@0900,1500 [facility] Last Admin: 08/24/24 08:49 Dose: 0.25 mg Doxepin HCl (Doxepin Hcl 10 Mg Capsule) 10 mg PO BEDTIME [facility] Last Admin: 08/23/24 22:03 Dose: 10 mg Escitalopram Oxalate (Escitalopram Oxalate 20 Mg Tablet) 20 mg PO DAILY [facility] Last Admin: 08/24/24 08:49 Dose: 20 mg Hydroxyzine HCl (Hydroxyzine Hcl 25 Mg Tablet) 25 mg PO Q6H PRN PRN Reason: Anxiety Levothyroxine Sodium (Levothyroxine Sodium 75 Mcg Tablet) 37.5 mcg PO DAILY@0600 [facility] Last Admin: 08/24/24 07:32 Dose: 37.5 mcg Lorazepam (Lorazepam 1 Mg Tablet) 1 mg PO DAILY PRN PRN Reason: severe anxiety Magnesium Hydroxide (Milk Of Magnesia 30 Ml Oral.Susp) 30 ml PO DAILY PRN PRN Reason: Constipation Last Admin: 08/21/24 21:23 Dose: 30 ml Nicotine Polacrilex (Nicotine Polacrilex 2 Mg Gum) 4 mg BUCCAL Q2H PRN PRN Reason: Nicotine Cravings Non-Formulary Medication (Liothyronine) 2.5 mcg PO DAILY@0600 [facility] Last Admin: 08/24/24 07:37 Dose: 2.5 mcg Polyethylene Glycol (Polyethylene Glycol 3350 17 Gm Powd.Pack) 17 gm PO DAILY [facility] Last Admin: 08/24/24 08:50 Dose: 17 gm Trazodone HCl (Trazodone Hcl 100 Mg Tablet) 100 mg PO BEDTIME [facility] Last Admin: 08/23/24 22:01 Dose: 100 mg Allergies Allergies Allergy/AdvReac Type Severity Reaction Status Date / Time No Known Allergies Allergy Verified 08/12/24 11:51 Assessment & Plan Assessment & Plan (1) Recurrent major depression: Status: Acute Code(s): F33.9 - Major depressive disorder, recurrent, unspecified (2) Adult failure to thrive: Status: Acute Code(s): R62.7 - Adult failure to thrive Plan Recurrent Major Depression, Failure to Thrive, Rule out MCI. 08/16: Continue plan of care ?ECT consult. ?Mood stabilizer trial 08/17: Continue Wellbutrin ?MAOI trial Declines ECT consult due to her concern about her memory 08/19: Increase Wellbutrin to 75 mg a.m. Family meeting 08/20. 08/20: continue current tx plan. 08/20 flex o writer operator, (Dr. Aguayo) also met with patient, sister and [id number] to discuss history of depression, medication management and possible ECT treatment. Patient reports that this is the worst episode of depression she has ever had including her previous hospitalization about a year and a half ago. After that last admission, Patient reports she was started on Paxil and Strattera and did quite well for the next 9-10 months, which family agrees. She is not sure why, but depression started to creep back in which continued until it became severe (no ADLs, not leaving house, family bringing her food and all of the other neurovegetative symptoms of depression other than SI). Patient reports she also did well on Wellbutrin XL 150 mg and Lexapro. 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 Discussed ECT, risks/potential side effects versus potential benefit. Drop Hammer Operator Helper agrees that it is prudent to 1st pursue medication management at this time while keeping ECT as an option, with which patient fully agrees. -switch Wellbutrin to XL 150 mg -will continue Lexapro 20 mg; QTC WNL and patient has no history of any cardiac issues so it remains an option to increase -will also consider restarting Strattera which patient said significantly helped her focus her thinking; Adderall/Ritalin also options -it is also possible to potentially combine Wellbutrin and Paxil which remains an option if patient remains only partially treated 08/21/24 Patient still quite depressed but says no problem with wellbutrin and felt it was noteworthy that today she took a shower today which helped her feel better; patient agreed with behavioral activation Discussed insomnia and trazodone seems to work well enough (mirtazapine cause excessive sleepiness the next day) discussed panic attack and she agrees it might have been due to excessive worries rather than Wellbutrin (which she has tolerated for years in the past); just prior to panic attack, she was perseverating on never getting better, losing her therapy practice, the stigma of ECT defining her as a mental patient. Patient agreed to continue with Wellbutrin. Talked about behavioral activation further; talked about ECT and patient appreciated postponing ECT decision until next week and right now just focusing on medication management. Patient had trouble sleeping; discussed options and she agreed to start doxepin -Patient discussed challenges of depression, worried about losing her career as well as her identity. Patient shared about history, regrets, conflicted feelings over past decisions; Patient feels overwhelmed with being on a psychiatric unit though she also understands the need to treat her depression at this time 12 discussed panic attack and she agrees it might have been due to excessive worries rather than Wellbutrin (which she has tolerated for years in the past); just prior to panic attack, she was perseverating on never getting better, losing her therapy practice, the stigma of ECT defining her as a mental patient. Patient agreed to continue with Wellbutrin. Talked about behavioral activation further; talked about ECT and patient appreciated postponing ECT decision until next week and right now just focusing on medication management. Patient had trouble sleeping; discussed options and she agreed to start doxepin 08/23 Patient said she did sleep better last night with doxepin. She remains depressed. She says that she is anxious to point of being incapacitated which is depressing; she says she just wants to sleep all day and that she does not want to be in the hospital. She says she feels like she has given up. Drop Hammer Operator Helper discussed again behavioral activation and patient said she understands this and will try to push herself to do so. She again says I am not doing that well... Patient again thought that perhaps Wellbutrin was causing her to shake however she again agreed to continue with Wellbutrin, persuaded by the fact that she had been on this dose in the past and done well and that she maybe misinterpreting her shaking. Due to excessive anxiety she agreed to start clonazepam during the day; discussed and patient said she will use a low-dose so as not to be too tired -patient has put in a 3 day notice and is ambivalent about whether not she will remain on the unit for treatment; ambivalent about ECT 08/24/24 - riding out side effects of added medication- pending dc on 3 day 08/27 Plan: Admit, CV, 15 minute checks Labs, diagnostics START clonazepam 0.25 mg 0 900, 1700 for excessive anxiety Continue Wellbutrin to XL 150 mg Continue doxepin 10 mg q.h.s. Consider MRI-brain (per neuro; will wait for EEG results) EEG recs per neuro Collateral contacts Decrease Levothyroxine to 37.5 mg daily and Liothyronine to 2.5 mg daily (consult with hospitalist Dr. Pickens as TSH is 0.01 today and yesterday. Med trials when diagnostics are completed MOCA today 24 (due to depression??) Patient educated on: medication risk/benefits Informed Consent: understands Reason for continued inpatient stay Substantial Risk for: rapid decompensation Time Spent With Patient Time: Total time managing care of this patient today ____ minutes.
[2024-08-24] MEDS: Milk of Magnesia 30 ML ORAL.SUSP PO (08:58)
[2024-08-24 12:57] LABS: TSH reflex Free T4 0.04 uIU/mL (0.32-4.0)
[2024-08-24 12:58] LABS: Vitamin D 25-OH Total 22.1 ng/mL (>30)
[2024-08-24 13:11] LABS: Folate 5.4 ng/mL (> or = 4.0); Vitamin B12 553 pg/mL (200-900)
[2024-08-24 13:32] LABS: Free T4 (Free Thyroxine) 1.12 ng/dL (0.71-1.85)
[2024-08-24] MEDS: Doxepin HCl 10 MG CAPSULE PO (22:00)
[2024-08-24] MEDS: traZODone HCL 100 MG TABLET PO (22:00)
[2024-08-25] MEDS: Levothyroxine Sodium 75 MCG TABLET 37.5 MCG PO (07:04)
[2024-08-25 08:00] VITALS: BP 120/63; PULSE 71; RESP 18; TEMP 36.4; O2SAT 96
[2024-08-25] MEDS: polyethylene glycoL 3350 17 GM POWD.PACK PO (08:46)
[2024-08-25] MEDS: buPROPion HCl XL 150 MG TAB.ER.24H PO (08:47)
[2024-08-25] MEDS: Escitalopram Oxalate 20 MG TABLET PO (08:47)
[2024-08-25] MEDS: clonazePAM 0.5 MG TABLET 0.25 MG PO (08:47)
[2024-08-25] MEDS: Cholecalciferol (Vitamin D3) 25 MCG TABLET PO (11:34)
[2024-08-25] MEDS: clonazePAM 0.5 MG TABLET PO (14:06)
[2024-08-25] MEDS: traZODone HCL 100 MG TABLET PO (20:46)
[2024-08-25] MEDS: Doxepin HCl 10 MG CAPSULE PO (20:46)
[2024-08-26] MEDS: Levothyroxine Sodium 75 MCG TABLET 37.5 MCG PO (06:27)
[2024-08-26 07:50] VITALS: RESP 16
[2024-08-26] MEDS: Escitalopram Oxalate 20 MG TABLET PO (08:26)
[2024-08-26] MEDS: buPROPion HCl XL 150 MG TAB.ER.24H PO (08:26)
[2024-08-26] MEDS: Cholecalciferol (Vitamin D3) 25 MCG TABLET PO (08:26)
[2024-08-26] MEDS: clonazePAM 0.5 MG TABLET PO ×2 (08:26→14:28)
[2024-08-26] MEDS: polyethylene glycoL 3350 17 GM POWD.PACK PO (09:20)
--- NOTE | 2024-08-26 09:22 | HO.PSYCHPN ---
Subjective Subjective Date of Service: 08/26/24 Reason For Visit: Depression, Rule out MCI Interim History: met with patient; discussed with team; reviewed chart Patient reports that she does not feel like she is doing well. She does acknowledge that her depression is little better and says that she has an appetite, sees herself eating more and has gained 5 lb; she is also brushing her teeth and attending to ADLs more regularly. She remains isolated staying in her room with much anxiety and feels anxiety is overall worse. She wonders if as the depression clears up a bit, it has uncovered more of her anxiety. Patient also says that she feels like she is shakey for past 3 days Patient very much does not like being on the unit however she said she realizes she is not ready to go home, that she feels awful and retracted her 3 day notice; patient was tearful and doing so, saying she very much wanted to be at home and is deeply saddened that she can not restart her therapy practice; she says this dampening her mood further Discussed medication management. Discussed possibility of serotonin syndrome due to shakey feeling as she is on Lexapro, low-dose doxepin and Wellbutrin which could give some contribution. Patient agrees to come off Lexapro since there was never a strong feeling that this was helpful. She also agreed to try low-dose Zyprexa to help with anxiety written depression She agrees to remain on Wellbutrin and instead get back on Paxil as both Paxil and Wellbutrin were highlighted as medications that she had done well on. She really wants to stay on doxepin because it has been helping with sleep; continuity writer agreed and will continue to monitor for serotonin syndrome (no hypertension, tachycardia; patient afebrile; although some tremor/shakiness, no hyperreflexia observed; no complaints of diarrhea or excessive salivation) Mental Status Exam Mental Status Exam Narrative: Pt is alert and oriented; behavior is cooperative, isolative; patient is not in distress; dressed in casual attire, adequately grooming/hygiene; mood is described as awful and affect congruent, downcast, tearful; eye contact appropriate; Speech is normal rate, volume and prosody and not pressured; psychomotor retardation present; bilateral hand tremor intermittently noticed; thought process is organized and goal directed; Thought content is struggling with hopelessness, anxiety about not getting well; treatment; otherwise pertinent to relevant topics and without any delusional content, paranoid ideations or grandiosity; denies any SI/HI. There is no evidence of perceptual disturbance. Patients insight and judgment impaired Diagnostics Vital Signs (24Hr): Vital Signs - 24 hr 08/26/24 07:50 Respiratory Rate 16 BMI result Body Mass Index 22.1 Labs 08/12/24 12:10 08/12/24 12:10 Labs: Laboratory Results - last 48 hr 08/24/24 12:15 Vitamin B12 553 25-OH Vitamin D Total 22.1 L Folate 5.4 TSH 0.04 L Free T4 1.12 Imaging Radiology Impressions: ITS Impressions Brain MRI 08/13/24 12:40 IMPRESSION: 1. No acute intracranial abnormalities. 2. Chronic microangiopathy. Electronically signed by: Dina Benton MD 08/13/2024 02:03 PM [facility] [place] Medications Medications Current Medications Acetaminophen (Acetaminophen 325 Mg Tablet) 650 mg PO Q6H PRN PRN Reason: Headache/Pain Mild Scale (1-3) Al Hydroxide/Mg Hydroxide (Magnesium Hydrox/Alum Hydrox 30 Ml Oral.Susp) 30 ml PO Q6H PRN PRN Reason: Heartburn/Nausea Bupropion HCl (Bupropion Hcl Xl 150 Mg Tab.Er.24h) 150 mg PO DAILY [facility] Last Admin: 08/26/24 08:26 Dose: 150 mg Clonazepam (Clonazepam 0.5 Mg Tablet) 0.5 mg PO BID@0900,1500 [facility] Last Admin: 08/26/24 08:26 Dose: 0.5 mg Doxepin HCl (Doxepin Hcl 10 Mg Capsule) 10 mg PO BEDTIME [facility] Last Admin: 08/25/24 20:46 Dose: 10 mg Escitalopram Oxalate (Escitalopram Oxalate 20 Mg Tablet) 20 mg PO DAILY [facility] Last Admin: 08/26/24 08:26 Dose: 20 mg Levothyroxine Sodium (Levothyroxine Sodium 75 Mcg Tablet) 37.5 mcg PO DAILY@0600 [facility] Last Admin: 08/26/24 06:27 Dose: 37.5 mcg Lorazepam (Lorazepam 1 Mg Tablet) 1 mg PO DAILY PRN PRN Reason: severe anxiety Magnesium Hydroxide (Milk Of Magnesia 30 Ml Oral.Susp) 30 ml PO DAILY PRN PRN Reason: Constipation Last Admin: 08/24/24 08:58 Dose: 30 ml Nicotine Polacrilex (Nicotine Polacrilex 2 Mg Gum) 4 mg BUCCAL Q2H PRN PRN Reason: Nicotine Cravings Non-Formulary Medication (Liothyronine) 2.5 mcg PO DAILY@0600 [facility] Last Admin: 08/26/24 06:27 Dose: 2.5 mcg Polyethylene Glycol (Polyethylene Glycol 3350 17 Gm Powd.Pack) 17 gm PO DAILY [facility] Last Admin: 08/26/24 09:20 Dose: 17 gm Trazodone HCl (Trazodone Hcl 100 Mg Tablet) 100 mg PO BEDTIME [facility] Last Admin: 08/25/24 20:46 Dose: 100 mg Vitamin D (Cholecalciferol (Vitamin D3) 25 Mcg Tablet) 25 mcg PO DAILY [facility] Last Admin: 08/26/24 08:26 Dose: 25 mcg Allergies Allergies Allergy/AdvReac Type Severity Reaction Status Date / Time No Known Allergies Allergy Verified 08/12/24 11:51 Assessment & Plan Assessment & Plan (1) Recurrent major depression: Status: Acute Code(s): F33.9 - Major depressive disorder, recurrent, unspecified (2) Adult failure to thrive: Status: Acute Code(s): R62.7 - Adult failure to thrive Plan Recurrent Major Depression, Failure to Thrive, Rule out MCI. 08/16: Continue plan of care ?ECT consult. ?Mood stabilizer trial 08/17: Continue Wellbutrin ?MAOI trial Declines ECT consult due to her concern about her memory 08/19: Increase Wellbutrin to 75 mg a.m. Family meeting 08/20. 08/20: continue current tx plan. 08/20 continuity writer, (Dr. Aguayo) also met with patient, sister and [id number] to discuss history of depression, medication management and possible ECT treatment. Patient reports that this is the worst episode of depression she has ever had including her previous hospitalization about a year and a half ago. After that last admission, Patient reports she was started on Paxil and Strattera and did quite well for the next 9-10 months, which family agrees. She is not sure why, but depression started to creep back in which continued until it became severe (no ADLs, not leaving house, family bringing her food and all of the other neurovegetative symptoms of depression other than SI). Patient reports she also did well on Wellbutrin XL 150 mg and Lexapro. 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 Discussed ECT, risks/potential side effects versus potential benefit. Press Department Manager agrees that it is prudent to 1st pursue medication management at this time while keeping ECT as an option, with which patient fully agrees. -switch Wellbutrin to XL 150 mg -will continue Lexapro 20 mg; QTC WNL and patient has no history of any cardiac issues so it remains an option to increase -will also consider restarting Strattera which patient said significantly helped her focus her thinking; Adderall/Ritalin also options -it is also possible to potentially combine Wellbutrin and Paxil which remains an option if patient remains only partially treated 08/21/24 Patient still quite depressed but says no problem with wellbutrin and felt it was noteworthy that today she took a shower today which helped her feel better; patient agreed with behavioral activation Discussed insomnia and trazodone seems to work well enough (mirtazapine cause excessive sleepiness the next day) discussed panic attack and she agrees it might have been due to excessive worries rather than Wellbutrin (which she has tolerated for years in the past); just prior to panic attack, she was perseverating on never getting better, losing her therapy practice, the stigma of ECT defining her as a mental patient. Patient agreed to continue with Wellbutrin. Talked about behavioral activation further; talked about ECT and patient appreciated postponing ECT decision until next week and right now just focusing on medication management. Patient had trouble sleeping; discussed options and she agreed to start doxepin -Patient discussed challenges of depression, worried about losing her career as well as her identity. Patient shared about history, regrets, conflicted feelings over past decisions; Patient feels overwhelmed with being on a psychiatric unit though she also understands the need to treat her depression at this time 12 discussed panic attack and she agrees it might have been due to excessive worries rather than Wellbutrin (which she has tolerated for years in the past); just prior to panic attack, she was perseverating on never getting better, losing her therapy practice, the stigma of ECT defining her as a mental patient. Patient agreed to continue with Wellbutrin. Talked about behavioral activation further; talked about ECT and patient appreciated postponing ECT decision until next week and right now just focusing on medication management. Patient had trouble sleeping; discussed options and she agreed to start doxepin 08/23 Patient said she did sleep better last night with doxepin. She remains depressed. She says that she is anxious to point of being incapacitated which is depressing; she says she just wants to sleep all day and that she does not want to be in the hospital. She says she feels like she has given up. Press Department Manager discussed again behavioral activation and patient said she understands this and will try to push herself to do so. She again says I am not doing that well... Patient again thought that perhaps Wellbutrin was causing her to shake however she again agreed to continue with Wellbutrin, persuaded by the fact that she had been on this dose in the past and done well and that she maybe misinterpreting her shaking. Due to excessive anxiety she agreed to start clonazepam during the day; discussed and patient said she will use a low-dose so as not to be too tired -patient has put in a 3 day notice and is ambivalent about whether not she will remain on the unit for treatment; ambivalent about ECT 08/24/24 - riding out side effects of added medication- pending dc on 3 day 08/27 08/26 Patient reports that she does not feel like she is doing well. She does acknowledge that her depression is little better and says that she has an appetite, sees herself eating more and has gained 5 lb; she is also brushing her teeth and attending to ADLs more regularly. She remains isolated staying in her room with much anxiety and feels anxiety is overall worse. She wonders if as the depression clears up a bit, it has uncovered more of her anxiety. Patient also says that she feels like she is shakey for past 3 days Patient very much does not like being on the unit however she said she realizes she is not ready to go home, that she feels awful and retracted her 3 day notice; patient was tearful and doing so, saying she very much wanted to be at home and is deeply saddened that she can not restart her therapy practice; she says this dampening her mood further Discussed medication management. Discussed possibility of serotonin syndrome due to shakey feeling as she is on Lexapro, low-dose doxepin and Wellbutrin which could give some contribution. -Patient agrees to come off Lexapro since there was never a strong feeling that this was helpful. -She also agreed to try low-dose Zyprexa to help with anxiety written depression -She agrees to remain on Wellbutrin and instead get back on Paxil as both Paxil and Wellbutrin were highlighted as medications that she had done well on. -She really wants to stay on doxepin because it has been helping with sleep; continuity writer agreed and will continue to monitor for serotonin syndrome (no hypertension, tachycardia; patient afebrile; although some tremor/shakiness, no hyperreflexia observed; no complaints of diarrhea or excessive salivation) Plan: CV, 15 minute checks DC Lexapro START Paxil 10 mg daily START Zyprexa 2.5 mg b.i.d. for excessive anxiety mixed with depression Continue Wellbutrin to XL 150 mg Continue doxepin 10 mg q.h.s. clonazepam 0.5 mg 0 900, 1700 for excessive anxiety Consider MRI-brain (per neuro; will wait for EEG results) EEG recs per neuro Collateral contacts Decrease Levothyroxine to 37.5 mg daily and Liothyronine to 2.5 mg daily (consult with hospitalist Dr. Pickens as TSH is 0.01 today and yesterday. Med trials when diagnostics are completed MOCA today 24 (due to depression??) Patient educated on: diagnosis, medication risk/benefits and therapeutic strategies Informed Consent: understands Reason for continued inpatient stay Substantial Risk for: inability to function and rapid decompensation Time Spent With Patient Time: Total time managing care of this patient today ____ minutes.
[2024-08-26] MEDS: OLANZapine 2.5 MG TABLET PO ×2 (12:54→20:16)
[2024-08-26] MEDS: Doxepin HCl 10 MG CAPSULE PO (20:16)
[2024-08-26] MEDS: traZODone HCL 100 MG TABLET PO (20:16)
[2024-08-27] MEDS: Levothyroxine Sodium 75 MCG TABLET 37.5 MCG PO (06:26)
[2024-08-27 08:00] VITALS: BP 90/55; PULSE 64; RESP 16; TEMP 36.5; O2SAT 97
[2024-08-27] MEDS: OLANZapine 2.5 MG TABLET PO ×2 (08:55→21:30)
[2024-08-27] MEDS: PARoxetine HCL 10 MG TABLET PO (08:55)
[2024-08-27] MEDS: Cholecalciferol (Vitamin D3) 25 MCG TABLET PO (08:55)
[2024-08-27] MEDS: buPROPion HCl XL 150 MG TAB.ER.24H PO (08:55)
[2024-08-27] MEDS: clonazePAM 0.5 MG TABLET PO ×2 (08:55→15:25)
[2024-08-27] MEDS: polyethylene glycoL 3350 17 GM POWD.PACK PO (09:29)
--- NOTE | 2024-08-27 09:47 | HO.PSYCHPN ---
Subjective Subjective Date of Service: 08/27/24 Reason For Visit: Depression, Rule out MCI Interim History: met with patient; discussed with team Patient continues to say that she is really bad though does also acknowledge that depression is little better and starting with Zyprexa, anxiety is a little better also. Patient says that she continues to have the shakes and demonstrates as she picks up a pitcher though at rest not observed by scientific technical writer. Discussed medications and patient would like doxepin did be discontinued worried that perhaps it is contributing to her shaky feeling. Slept well last night and feels that Zyprexa will be enough for insomnia. She likes the idea of being on Paxil and having Lexapro discontinued. Remains isolated and in her room despite discussion about behavioral activation Mental Status Exam Mental Status Exam Narrative: Pt is alert and oriented; behavior is cooperative, isolative; patient is not in distress; dressed in casual attire, adequately grooming/hygiene; mood is described as really bad and affect congruent, downcast, but not tearful; eye contact appropriate; Speech is normal rate, volume and prosody and not pressured; psychomotor retardation present; bilateral hand tremor intermittently noticed; thought process is organized and goal directed; Thought content is struggling with hopelessness, anxiety about not getting well; treatment; otherwise pertinent to relevant topics and without any delusional content, paranoid ideations or grandiosity; denies any SI/HI. There is no evidence of perceptual disturbance. Patients insight and judgment impaired Diagnostics Vital Signs (24Hr): Vital Signs - 24 hr 08/27/24 08:00 Temperature 97.7 F Pulse Rate 64 Respiratory Rate 16 Blood Pressure 90/55 L Pulse Oximetry 97 Oxygen Delivery Method Room Air BMI result Body Mass Index 22.1 Labs 08/12/24 12:10 08/12/24 12:10 Imaging Radiology Impressions: ITS Impressions Brain MRI 08/13/24 12:40 IMPRESSION: 1. No acute intracranial abnormalities. 2. Chronic microangiopathy. Electronically signed by: Dina Benton MD 08/13/2024 02:03 PM SEE [facility] Medications Medications Current Medications Acetaminophen (Acetaminophen 325 Mg Tablet) 650 mg PO Q6H PRN PRN Reason: Headache/Pain Mild Scale (1-3) Al Hydroxide/Mg Hydroxide (Magnesium Hydrox/Alum Hydrox 30 Ml Oral.Susp) 30 ml PO Q6H PRN PRN Reason: Heartburn/Nausea Bupropion HCl (Bupropion Hcl Xl 150 Mg Tab.Er.24h) 150 mg PO DAILY [facility] Last Admin: 08/27/24 08:55 Dose: 150 mg Clonazepam (Clonazepam 0.5 Mg Tablet) 0.5 mg PO BID@0900,1500 [facility] Last Admin: 08/27/24 08:55 Dose: 0.5 mg Doxepin HCl (Doxepin Hcl 10 Mg Capsule) 10 mg PO BEDTIME [facility] Last Admin: 08/26/24 20:16 Dose: 10 mg Levothyroxine Sodium (Levothyroxine Sodium 75 Mcg Tablet) 37.5 mcg PO DAILY@0600 [facility] Last Admin: 08/27/24 06:26 Dose: 37.5 mcg Lorazepam (Lorazepam 1 Mg Tablet) 1 mg PO DAILY PRN PRN Reason: severe anxiety Magnesium Hydroxide (Milk Of Magnesia 30 Ml Oral.Susp) 30 ml PO DAILY PRN PRN Reason: Constipation Last Admin: 08/24/24 08:58 Dose: 30 ml Nicotine Polacrilex (Nicotine Polacrilex 2 Mg Gum) 4 mg BUCCAL Q2H PRN PRN Reason: Nicotine Cravings Non-Formulary Medication (Liothyronine) 2.5 mcg PO DAILY@0600 [facility] Last Admin: 08/27/24 06:26 Dose: 2.5 mcg Olanzapine (Olanzapine 2.5 Mg Tablet) 2.5 mg PO BID [facility] Last Admin: 08/27/24 08:55 Dose: 2.5 mg Paroxetine HCl (Paroxetine Hcl 10 Mg Tablet) 10 mg PO DAILY [facility] Last Admin: 08/27/24 08:55 Dose: 10 mg Polyethylene Glycol (Polyethylene Glycol 3350 17 Gm Powd.Pack) 17 gm PO DAILY [facility] Last Admin: 08/27/24 09:29 Dose: 17 gm Trazodone HCl (Trazodone Hcl 100 Mg Tablet) 100 mg PO BEDTIME [facility] Last Admin: 08/26/24 20:16 Dose: 100 mg Vitamin D (Cholecalciferol (Vitamin D3) 25 Mcg Tablet) 25 mcg PO DAILY [facility] Last Admin: 08/27/24 08:55 Dose: 25 mcg Allergies Allergies Allergy/AdvReac Type Severity Reaction Status Date / Time No Known Allergies Allergy Verified 08/12/24 11:51 Assessment & Plan Assessment & Plan (1) Recurrent major depression: Status: Acute Code(s): F33.9 - Major depressive disorder, recurrent, unspecified (2) Adult failure to thrive: Status: Acute Code(s): R62.7 - Adult failure to thrive Plan Recurrent Major Depression, Failure to Thrive, Rule out MCI. 08/16: Continue plan of care ?ECT consult. ?Mood stabilizer trial 08/17: Continue Wellbutrin ?MAOI trial Declines ECT consult due to her concern about her memory 08/19: Increase Wellbutrin to 75 mg a.m. Family meeting 08/20. 08/20: continue current tx plan. 08/20 scientific technical writer, (Dr. Aguayo) also met with patient, sister and [id number] to discuss history of depression, medication management and possible ECT treatment. Patient reports that this is the worst episode of depression she has ever had including her previous hospitalization about a year and a half ago. After that last admission, Patient reports she was started on Paxil and Strattera and did quite well for the next 9-10 months, which family agrees. She is not sure why, but depression started to creep back in which continued until it became severe (no ADLs, not leaving house, family bringing her food and all of the other neurovegetative symptoms of depression other than SI). Patient reports she also did well on Wellbutrin XL 150 mg and Lexapro. 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 Discussed ECT, risks/potential side effects versus potential benefit. Documentation Nurse agrees that it is prudent to 1st pursue medication management at this time while keeping ECT as an option, with which patient fully agrees. -switch Wellbutrin to XL 150 mg -will continue Lexapro 20 mg; QTC WNL and patient has no history of any cardiac issues so it remains an option to increase -will also consider restarting Strattera which patient said significantly helped her focus her thinking; Adderall/Ritalin also options -it is also possible to potentially combine Wellbutrin and Paxil which remains an option if patient remains only partially treated 08/21/24 Patient still quite depressed but says no problem with wellbutrin and felt it was noteworthy that today she took a shower today which helped her feel better; patient agreed with behavioral activation Discussed insomnia and trazodone seems to work well enough (mirtazapine cause excessive sleepiness the next day) discussed panic attack and she agrees it might have been due to excessive worries rather than Wellbutrin (which she has tolerated for years in the past); just prior to panic attack, she was perseverating on never getting better, losing her therapy practice, the stigma of ECT defining her as a mental patient. Patient agreed to continue with Wellbutrin. Talked about behavioral activation further; talked about ECT and patient appreciated postponing ECT decision until next week and right now just focusing on medication management. Patient had trouble sleeping; discussed options and she agreed to start doxepin -Patient discussed challenges of depression, worried about losing her career as well as her identity. Patient shared about history, regrets, conflicted feelings over past decisions; Patient feels overwhelmed with being on a psychiatric unit though she also understands the need to treat her depression at this time 1/2 discussed panic attack and she agrees it might have been due to excessive worries rather than Wellbutrin (which she has tolerated for years in the past); just prior to panic attack, she was perseverating on never getting better, losing her therapy practice, the stigma of ECT defining her as a mental patient. Patient agreed to continue with Wellbutrin. Talked about behavioral activation further; talked about ECT and patient appreciated postponing ECT decision until next week and right now just focusing on medication management. Patient had trouble sleeping; discussed options and she agreed to start doxepin 1 Patient said she did sleep better last night with doxepin. She remains depressed. She says that she is anxious to point of being incapacitated which is depressing; she says she just wants to sleep all day and that she does not want to be in the hospital. She says she feels like she has given up. Documentation Nurse discussed again behavioral activation and patient said she understands this and will try to push herself to do so. She again says I am not doing that well... Patient again thought that perhaps Wellbutrin was causing her to shake however she again agreed to continue with Wellbutrin, persuaded by the fact that she had been on this dose in the past and done well and that she maybe misinterpreting her shaking. Due to excessive anxiety she agreed to start clonazepam during the day; discussed and patient said she will use a low-dose so as not to be too tired -patient has put in a 3 day notice and is ambivalent about whether not she will remain on the unit for treatment; ambivalent about ECT 08/24/24 - riding out side effects of added medication- pending dc on 3 day 08/27 08/26 Patient reports that she does not feel like she is doing well. She does acknowledge that her depression is little better and says that she has an appetite, sees herself eating more and has gained 5 lb; she is also brushing her teeth and attending to ADLs more regularly. She remains isolated staying in her room with much anxiety and feels anxiety is overall worse. She wonders if as the depression clears up a bit, it has uncovered more of her anxiety. Patient also says that she feels like she is shakey for past 3 days Patient very much does not like being on the unit however she said she realizes she is not ready to go home, that she feels awful and retracted her 3 day notice; patient was tearful and doing so, saying she very much wanted to be at home and is deeply saddened that she can not restart her therapy practice; she says this dampening her mood further Discussed medication management. Discussed possibility of serotonin syndrome due to shakey feeling as she is on Lexapro, low-dose doxepin and Wellbutrin which could give some contribution. -Patient agrees to come off Lexapro since there was never a strong feeling that this was helpful. -She also agreed to try low-dose Zyprexa to help with anxiety written depression -She agrees to remain on Wellbutrin and instead get back on Paxil as both Paxil and Wellbutrin were highlighted as medications that she had done well on. -She really wants to stay on doxepin because it has been helping with sleep; scientific technical writer agreed and will continue to monitor for serotonin syndrome (no hypertension, tachycardia; patient afebrile; although some tremor/shakiness, no hyperreflexia observed; no complaints of diarrhea or excessive salivation) 08/27 Patient continues to say that she is really bad though does also acknowledge that depression is little better and starting with Zyprexa, anxiety is a little better also. Patient says that she continues to have the shakes and demonstrates as she picks up a pitcher though at rest not observed by scientific technical writer. Discussed medications and patient would like doxepin did be discontinued worried that perhaps it is contributing to her shaky feeling. Slept well last night and feels that Zyprexa will be enough for insomnia. She likes the idea of being on Paxil and having Lexapro discontinued. Remains isolated and in her room despite discussion about behavioral activation -scientific technical writer agrees that it is prudent to hold off from ECT at this time and continue with medication management as patient is making incremental improvements Plan: CV, 15 minute checks DC Lexapro Continue Paxil 10 mg daily Continue Zyprexa 2.5 mg b.i.d. for excessive anxiety mixed with depression Continue Wellbutrin to XL 150 mg Continue doxepin 10 mg q.h.s. clonazepam 0.5 mg 0 900, 1700 for excessive anxiety Consider MRI-brain (per neuro; will wait for EEG results) EEG recs per neuro Collateral contacts Decrease Levothyroxine to 37.5 mg daily and Liothyronine to 2.5 mg daily (consult with hospitalist Dr. Pickens as TSH is 0.01 today and yesterday. Med trials when diagnostics are completed MOCA today 24 (due to depression??) Patient educated on: diagnosis, medication risk/benefits and therapeutic strategies Informed Consent: understands Reason for continued inpatient stay Substantial Risk for: rapid decompensation Time Spent With Patient Time: Total time managing care of this patient today ____ minutes.
[2024-08-27 19:41] VITALS: BP 113/57; PULSE 62; RESP 16; O2SAT 99
[2024-08-27] MEDS: traZODone HCL 100 MG TABLET PO (21:30)
[2024-08-28] MEDS: Levothyroxine Sodium 75 MCG TABLET 37.5 MCG PO (07:04)
[2024-08-28 08:20] VITALS: BP 109/55; PULSE 66; RESP 18; TEMP 36.5; O2SAT 97
[2024-08-28] MEDS: clonazePAM 0.5 MG TABLET PO ×2 (09:14→15:43)
[2024-08-28] MEDS: buPROPion HCl XL 150 MG TAB.ER.24H PO (09:14)
[2024-08-28] MEDS: OLANZapine 2.5 MG TABLET PO ×2 (09:14→22:14)
[2024-08-28] MEDS: Cholecalciferol (Vitamin D3) 25 MCG TABLET PO (09:14)
[2024-08-28] MEDS: PARoxetine HCL 10 MG TABLET PO (09:14)
[2024-08-28] MEDS: polyethylene glycoL 3350 17 GM POWD.PACK PO (09:15)
--- NOTE | 2024-08-28 10:00 | P.PNPSI_ITS ---
Subjective Subjective Date of Service: 08/28/24 Reason For Visit: Depression, Rule out MCI Interim History: met with patient; discussed with team remains very bad and depressed; lying in bed all day. Diamond Cleaner discussed need to walk vs risk of DVT and pt assured field underwriter she would do so every few hours. field underwriter walked esposito w/ patient and sat w/ her for dinner. Discussed medications and pt remains w/ numerous somatic complaints, feeling dizzy, weak, shaky. Says anxiety is a bit lower Mental Status Exam Mental Status Exam Narrative: Pt is alert and oriented; behavior is sedentary, isolative; patient is not in distress; dressed in casual attire, adequately grooming/hygiene; mood is described as depressed and affect congruent, downcast, but not tearful; eye contact appropriate; Speech is a little bti slowed; normal volume and prosody and not pressured; significant psychomotor retardation present; no obvious hand tremor noticed; thought process is organized and goal directed; Thought content is struggling with hopelessness, anxiety about not getting well; treatment; otherwise pertinent to relevant topics and without any delusional content, paranoid ideations or grandiosity; denies any SI/HI. There is no evidence of perceptual disturbance. Patients insight and judgment impaired Diagnostics Vital Signs (24Hr): Vital Signs - 24 hr 08/27/24 19:41 08/28/24 08:20 Temperature 97.7 F Pulse Rate 62 66 Respiratory Rate 16 18 Blood Pressure 113/57 L 109/55 L Pulse Oximetry 99 97 Oxygen Delivery Method Room Air Room Air BMI result Body Mass Index 22.1 Labs 08/12/24 12:10 08/12/24 12:10 Imaging Radiology Impressions: ITS Impressions Brain MRI 08/13/24 12:40 IMPRESSION: 1. No acute intracranial abnormalities. 2. Chronic microangiopathy. Electronically signed by: Dina Benton MD 08/13/2024 02:03 PM EST Medications Medications Current Medications Acetaminophen (Acetaminophen 325 Mg Tablet) 650 mg PO Q6H PRN PRN Reason: Headache/Pain Mild Scale (1-3) Al Hydroxide/Mg Hydroxide (Magnesium Hydrox/Alum Hydrox 30 Ml Oral.Susp) 30 ml PO Q6H PRN PRN Reason: Heartburn/Nausea Bupropion HCl (Bupropion Hcl Xl 150 Mg Tab.Er.24h) 150 mg PO DAILY ESTEBAN Last Admin: 08/28/24 09:14 Dose: 150 mg Clonazepam (Clonazepam 0.5 Mg Tablet) 0.5 mg PO BID@0900,1500 [facility] Last Admin: 08/28/24 09:14 Dose: 0.5 mg Levothyroxine Sodium (Levothyroxine Sodium 75 Mcg Tablet) 37.5 mcg PO DAILY@0600 [facility] Last Admin: 08/28/24 07:04 Dose: 37.5 mcg Lorazepam (Lorazepam 1 Mg Tablet) 1 mg PO DAILY PRN PRN Reason: severe anxiety Magnesium Hydroxide (Milk Of Magnesia 30 Ml Oral.Susp) 30 ml PO DAILY PRN PRN Reason: Constipation Last Admin: 08/24/24 08:58 Dose: 30 ml Nicotine Polacrilex (Nicotine Polacrilex 2 Mg Gum) 4 mg BUCCAL Q2H PRN PRN Reason: Nicotine Cravings Non-Formulary Medication (Liothyronine) 2.5 mcg PO DAILY@0600 [facility] Last Admin: 08/28/24 07:04 Dose: 2.5 mcg Olanzapine (Olanzapine 2.5 Mg Tablet) 2.5 mg PO BID [facility] Last Admin: 08/28/24 09:14 Dose: 2.5 mg Paroxetine HCl (Paroxetine Hcl 10 Mg Tablet) 10 mg PO DAILY [facility] Last Admin: 08/28/24 09:14 Dose: 10 mg Polyethylene Glycol (Polyethylene Glycol 3350 17 Gm Powd.Pack) 17 gm PO DAILY [facility] Last Admin: 08/28/24 09:15 Dose: 17 gm Trazodone HCl (Trazodone Hcl 100 Mg Tablet) 100 mg PO BEDTIME [facility] Last Admin: 08/27/24 21:30 Dose: 100 mg Vitamin D (Cholecalciferol (Vitamin D3) 25 Mcg Tablet) 25 mcg PO DAILY [facility] Last Admin: 08/28/24 09:14 Dose: 25 mcg Allergies Allergies Allergy/AdvReac Type Severity Reaction Status Date / Time No Known Allergies Allergy Verified 08/12/24 11:51 Assessment & Plan Assessment & Plan (1) Recurrent major depression: Status: Acute Code(s): F33.9 - Major depressive disorder, recurrent, unspecified (2) Adult failure to thrive: Status: Acute Code(s): R62.7 - Adult failure to thrive Plan Recurrent Major Depression, Failure to Thrive, Rule out MCI. 08/16: Continue plan of care ?ECT consult. ?Mood stabilizer trial 08/17: Continue Wellbutrin ?MAOI trial Declines ECT consult due to her concern about her memory 08/19: Increase Wellbutrin to 75 mg a.m. Family meeting 08/20. 08/20: continue current tx plan. 08/20 field underwriter, (Dr. Aguayo) also met with patient, sister and [id number] to discuss history of depression, medication management and possible ECT treatment. Patient reports that this is the worst episode of depression she has ever had including her previous hospitalization about a year and a half ago. After that last admission, Patient reports she was started on Paxil and Strattera and did quite well for the next 9-10 months, which family agrees. She is not sure why, but depression started to creep back in which continued until it became severe (no ADLs, not leaving house, family bringing her food and all of the other neurovegetative symptoms of depression other than SI). Patient reports she also did well on Wellbutrin XL 150 mg and Lexapro. 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 Discussed ECT, risks/potential side effects versus potential benefit. Diamond Cleaner agrees that it is prudent to 1st pursue medication management at this time while keeping ECT as an option, with which patient fully agrees. -switch Wellbutrin to XL 150 mg -will continue Lexapro 20 mg; QTC WNL and patient has no history of any cardiac issues so it remains an option to increase -will also consider restarting Strattera which patient said significantly helped her focus her thinking; Adderall/Ritalin also options -it is also possible to potentially combine Wellbutrin and Paxil which remains an option if patient remains only partially treated 08/21/24 Patient still quite depressed but says no problem with wellbutrin and felt it was noteworthy that today she took a shower today which helped her feel better; patient agreed with behavioral activation Discussed insomnia and trazodone seems to work well enough (mirtazapine cause excessive sleepiness the next day) discussed panic attack and she agrees it might have been due to excessive worries rather than Wellbutrin (which she has tolerated for years in the past); just prior to panic attack, she was perseverating on never getting better, losing her therapy practice, the stigma of ECT defining her as a mental patient. Patient agreed to continue with Wellbutrin. Talked about behavioral activation further; talked about ECT and patient appreciated postponing ECT decision until next week and right now just focusing on medication management. Patient had trouble sleeping; discussed options and she agreed to start doxepin -Patient discussed challenges of depression, worried about losing her career as well as her identity. Patient shared about history, regrets, conflicted feelings over past decisions; Patient feels overwhelmed with being on a psychiatric unit though she also understands the need to treat her depression at this time 12 discussed panic attack and she agrees it might have been due to excessive worries rather than Wellbutrin (which she has tolerated for years in the past); just prior to panic attack, she was perseverating on never getting better, losing her therapy practice, the stigma of ECT defining her as a mental patient. Patient agreed to continue with Wellbutrin. Talked about behavioral activation further; talked about ECT and patient appreciated postponing ECT decision until next week and right now just focusing on medication management. Patient had trouble sleeping; discussed options and she agreed to start doxepin 08/23 Patient said she did sleep better last night with doxepin. She remains depressed. She says that she is anxious to point of being incapacitated which is depressing; she says she just wants to sleep all day and that she does not want to be in the hospital. She says she feels like she has given up. Diamond Cleaner discussed again behavioral activation and patient said she understands this and will try to push herself to do so. She again says I am not doing that well... Patient again thought that perhaps Wellbutrin was causing her to shake however she again agreed to continue with Wellbutrin, persuaded by the fact that she had been on this dose in the past and done well and that she maybe misinterpreting her shaking. Due to excessive anxiety she agreed to start clonazepam during the day; discussed and patient said she will use a low-dose so as not to be too tired -patient has put in a 3 day notice and is ambivalent about whether not she will remain on the unit for treatment; ambivalent about ECT 08/24/24 - riding out side effects of added medication- pending dc on 3 day 08/27 08/26 Patient reports that she does not feel like she is doing well. She does acknowledge that her depression is little better and says that she has an appetite, sees herself eating more and has gained 5 lb; she is also brushing her teeth and attending to ADLs more regularly. She remains isolated staying in her room with much anxiety and feels anxiety is overall worse. She wonders if as the depression clears up a bit, it has uncovered more of her anxiety. Patient also says that she feels like she is shakey for past 3 days Patient very much does not like being on the unit however she said she realizes she is not ready to go home, that she feels awful and retracted her 3 day notice; patient was tearful and doing so, saying she very much wanted to be at home and is deeply saddened that she can not restart her therapy practice; she says this dampening her mood further Discussed medication management. Discussed possibility of serotonin syndrome due to shakey feeling as she is on Lexapro, low-dose doxepin and Wellbutrin which could give some contribution. -Patient agrees to come off Lexapro since there was never a strong feeling that this was helpful. -She also agreed to try low-dose Zyprexa to help with anxiety written depression -She agrees to remain on Wellbutrin and instead get back on Paxil as both Paxil and Wellbutrin were highlighted as medications that she had done well on. -She really wants to stay on doxepin because it has been helping with sleep; field underwriter agreed and will continue to monitor for serotonin syndrome (no hypertension, tachycardia; patient afebrile; although some tremor/shakiness, no hyperreflexia observed; no complaints of diarrhea or excessive salivation) 08/27 Patient continues to say that she is really bad though does also acknowledge that depression is little better and starting with Zyprexa, anxiety is a little better also. Patient says that she continues to have the shakes and demonstrates as she picks up a pitcher though at rest not observed by field underwriter. Discussed medications and patient would like doxepin did be discontinued worried that perhaps it is contributing to her shaky feeling. Slept well last night and feels that Zyprexa will be enough for insomnia. She likes the idea of being on Paxil and having Lexapro discontinued. Remains isolated and in her room despite discussion about behavioral activation -field underwriter agrees that it is prudent to hold off from ECT at this time and continue with medication management as patient is making incremental improvements 08/28 remains very depressed, isolates in bed; willing to get up and move when prompted. Increaed Paxil to 20mg; pt agrees Plan: CV, 15 minute checks DC Lexapro Continue Paxil 20 mg daily Continue Zyprexa 2.5 mg b.i.d. for excessive anxiety mixed with depression Continue Wellbutrin to XL 150 mg Continue doxepin 10 mg q.h.s. clonazepam 0.5 mg 0 900, 1700 for excessive anxiety Consider MRI-brain (per neuro; will wait for EEG results) EEG recs per neuro Collateral contacts Decrease Levothyroxine to 37.5 mg daily and Liothyronine to 2.5 mg daily (consult with hospitalist Dr. Pickens as TSH is 0.01 today and yesterday. Med trials when diagnostics are completed MOCA today 24 (due to depression??) Patient educated on: diagnosis, medication risk/benefits and therapeutic strategies Informed Consent: understands and further education needed Reason for continued inpatient stay Substantial Risk for: inability to function Time Spent With Patient Time: Total time managing care of this patient today ____ minutes.
[2024-08-28 15:43] LABS: Thyrotropin Receptor Antibody <1.00 IU/L (<=2.00)
[2024-08-28] MEDS: traZODone HCL 100 MG TABLET PO (22:14)
[2024-08-29] MEDS: Levothyroxine Sodium 75 MCG TABLET 37.5 MCG PO (06:48)
[2024-08-29 07:54] VITALS: BP 92/49; PULSE 67; RESP 20; TEMP 36.3; O2SAT 95
[2024-08-29] MEDS: polyethylene glycoL 3350 17 GM POWD.PACK PO (08:38)
[2024-08-29] MEDS: PARoxetine HCL 20 MG TABLET PO (08:38)
[2024-08-29] MEDS: clonazePAM 0.5 MG TABLET PO ×2 (08:38→14:40)
[2024-08-29] MEDS: OLANZapine 2.5 MG TABLET PO ×2 (08:38→21:13)
[2024-08-29] MEDS: buPROPion HCl XL 150 MG TAB.ER.24H PO (08:38)
[2024-08-29] MEDS: Cholecalciferol (Vitamin D3) 25 MCG TABLET PO (08:38)
--- NOTE | 2024-08-29 18:06 | P.PNPSI_ITS ---
Subjective Subjective Date of Service: 08/29/24 Reason For Visit: Depression, Rule out MCI Interim History: Met with patient; discussed with team very depressed; walking the halls as asked but otherwise in bed; discussed medication and pt open to further titration. Discussed case with Dr. Chandra who recommends going slowly with med titrations. -continue to consider ECT Mental Status Exam Mental Status Exam Narrative: Pt is alert and oriented; behavior is sedentary, isolative; patient is not in distress; dressed in casual attire, adequately grooming/hygiene; mood is described as depressed and affect congruent, downcast, but not tearful; eye contact appropriate; Speech is a little bti slowed; normal volume and prosody and not pressured; significant psychomotor retardation present; no obvious hand tremor noticed; thought process is organized and goal directed; Thought content is struggling with hopelessness, anxiety about not getting well; treatment; otherwise pertinent to relevant topics and without any delusional content, paranoid ideations or grandiosity; denies any SI/HI. There is no evidence of perceptual disturbance. Patients insight and judgment impaired Diagnostics Vital Signs (24Hr): Vital Signs - 24 hr 08/29/24 07:54 Temperature 97.3 F Pulse Rate 67 Respiratory Rate 20 Blood Pressure 92/49 L Pulse Oximetry 95 Oxygen Delivery Method Room Air BMI result Body Mass Index 22.1 Labs 08/12/24 12:10 08/12/24 12:10 Labs: Laboratory Results - last 48 hr 08/24/24 12:15 TSH Receptor Ab <1.00 Imaging Radiology Impressions: ITS Impressions Brain MRI 08/13/24 12:40 IMPRESSION: 1. No acute intracranial abnormalities. 2. Chronic microangiopathy. Electronically signed by: Dina Benton MD 08/13/2024 02:03 PM [facility] Medications Medications Current Medications Acetaminophen (Acetaminophen 325 Mg Tablet) 650 mg PO Q6H PRN PRN Reason: Headache/Pain Mild Scale (1-3) Al Hydroxide/Mg Hydroxide (Magnesium Hydrox/Alum Hydrox 30 Ml Oral.Susp) 30 ml PO Q6H PRN PRN Reason: Heartburn/Nausea Bupropion HCl (Bupropion Hcl Xl 300 Mg Tab.Er.24h) 300 mg PO DAILY ESTEBAN Clonazepam (Clonazepam 0.5 Mg Tablet) 0.25 mg PO BID@0900,1500 [facility] Levothyroxine Sodium (Levothyroxine Sodium 75 Mcg Tablet) 37.5 mcg PO DAILY@0600 [facility] Last Admin: 08/29/24 06:48 Dose: 37.5 mcg Magnesium Hydroxide (Milk Of Magnesia 30 Ml Oral.Susp) 30 ml PO DAILY PRN PRN Reason: Constipation Last Admin: 08/24/24 08:58 Dose: 30 ml Nicotine Polacrilex (Nicotine Polacrilex 2 Mg Gum) 4 mg BUCCAL Q2H PRN PRN Reason: Nicotine Cravings Non-Formulary Medication (Liothyronine) 2.5 mcg PO DAILY@0600 [facility] Last Admin: 08/29/24 06:49 Dose: 2.5 mcg Olanzapine (Olanzapine 2.5 Mg Tablet) 2.5 mg PO BID [facility] Last Admin: 08/29/24 08:38 Dose: 2.5 mg Paroxetine HCl (Paroxetine Hcl 20 Mg Tablet) 20 mg PO DAILY [facility] Last Admin: 08/29/24 08:38 Dose: 20 mg Polyethylene Glycol (Polyethylene Glycol 3350 17 Gm Powd.Pack) 17 gm PO DAILY [facility] Last Admin: 08/29/24 08:38 Dose: 17 gm Trazodone HCl (Trazodone Hcl 100 Mg Tablet) 100 mg PO BEDTIME [facility] Last Admin: 08/28/24 22:14 Dose: 100 mg Vitamin D (Cholecalciferol (Vitamin D3) 25 Mcg Tablet) 25 mcg PO DAILY [facility] Last Admin: 08/29/24 08:38 Dose: 25 mcg Allergies Allergies Allergy/AdvReac Type Severity Reaction Status Date / Time No Known Allergies Allergy Verified 08/12/24 11:51 Assessment & Plan Assessment & Plan (1) Recurrent major depression: Status: Acute Code(s): F33.9 - Major depressive disorder, recurrent, unspecified (2) Adult failure to thrive: Status: Acute Code(s): R62.7 - Adult failure to thrive Plan Recurrent Major Depression, Failure to Thrive, Rule out MCI. 08/16: Continue plan of care ?ECT consult. ?Mood stabilizer trial 08/17: Continue Wellbutrin ?MAOI trial Declines ECT consult due to her concern about her memory 08/19: Increase Wellbutrin to 75 mg a.m. Family meeting 08/20. 08/20: continue current tx plan. 08/20 production underwriter, (Dr. Aguayo) also met with patient, sister and [id number] to discuss history of depression, medication management and possible ECT treatment. Patient reports that this is the worst episode of depression she has ever had including her previous hospitalization about a year and a half ago. After that last admission, Patient reports she was started on Paxil and Strattera and did quite well for the next 9-10 months, which family agrees. She is not sure why, but depression started to creep back in which continued until it became severe (no ADLs, not leaving house, family bringing her food and all of the other neurovegetative symptoms of depression other than SI). Patient reports she also did well on Wellbutrin XL 150 mg and Lexapro. 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 Discussed ECT, risks/potential side effects versus potential benefit. 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 -switch Wellbutrin to XL 150 mg -will continue Lexapro 20 mg; QTC WNL and patient has no history of any cardiac issues so it remains an option to increase -will also consider restarting Strattera which patient said significantly helped her focus her thinking; Adderall/Ritalin also options -it is also possible to potentially combine Wellbutrin and Paxil which remains an option if patient remains only partially treated 08/21/24 Patient still quite depressed but says no problem with wellbutrin and felt it was noteworthy that today she took a shower today which helped her feel better; patient agreed with behavioral activation Discussed insomnia and trazodone seems to work well enough (mirtazapine cause excessive sleepiness the next day) discussed panic attack and she agrees it might have been due to excessive worries rather than Wellbutrin (which she has tolerated for years in the past); just prior to panic attack, she was perseverating on never getting better, losing her therapy practice, the stigma of ECT defining her as a mental patient. Patient agreed to continue with Wellbutrin. Talked about behavioral activation further; talked about ECT and patient appreciated postponing ECT decision until next week and right now just focusing on medication management. Patient had trouble sleeping; discussed options and she agreed to start doxepin -Patient discussed challenges of depression, worried about losing her career as well as her identity. Patient shared about history, regrets, conflicted feelings over past decisions; Patient feels overwhelmed with being on a psychiatric unit though she also understands the need to treat her depression at this time 2 discussed panic attack and she agrees it might have been due to excessive worries rather than Wellbutrin (which she has tolerated for years in the past); just prior to panic attack, she was perseverating on never getting better, losing her therapy practice, the stigma of ECT defining her as a mental patient. Patient agreed to continue with Wellbutrin. Talked about behavioral activation further; talked about ECT and patient appreciated postponing ECT decision until next week and right now just focusing on medication management. Patient had trouble sleeping; discussed options and she agreed to start doxepin 08/23 Patient said she did sleep better last night with doxepin. She remains depressed. She says that she is anxious to point of being incapacitated which is depressing; she says she just wants to sleep all day and that she does not want to be in the hospital. She says she feels like she has given up. Vegetable I Farmworker discussed again behavioral activation and patient said she understands this and will try to push herself to do so. She again says I am not doing that well... Patient again thought that perhaps Wellbutrin was causing her to shake however she again agreed to continue with Wellbutrin, persuaded by the fact that she had been on this dose in the past and done well and that she maybe misinterpreting her shaking. Due to excessive anxiety she agreed to start clonazepam during the day; discussed and patient said she will use a low-dose so as not to be too tired -patient has put in a 3 day notice and is ambivalent about whether not she will remain on the unit for treatment; ambivalent about ECT 08/24/24 - riding out side effects of added medication- pending dc on 3 day 08/27 08/26 Patient reports that she does not feel like she is doing well. She does acknowledge that her depression is little better and says that she has an appetite, sees herself eating more and has gained 5 lb; she is also brushing her teeth and attending to ADLs more regularly. She remains isolated staying in her room with much anxiety and feels anxiety is overall worse. She wonders if as the depression clears up a bit, it has uncovered more of her anxiety. Patient also says that she feels like she is shakey for past 3 days Patient very much does not like being on the unit however she said she realizes she is not ready to go home, that she feels awful and retracted her 3 day notice; patient was tearful and doing so, saying she very much wanted to be at home and is deeply saddened that she can not restart her therapy practice; she says this dampening her mood further Discussed medication management. Discussed possibility of serotonin syndrome due to shakey feeling as she is on Lexapro, low-dose doxepin and Wellbutrin which could give some contribution. -Patient agrees to come off Lexapro since there was never a strong feeling that this was helpful. -She also agreed to try low-dose Zyprexa to help with anxiety written depression -She agrees to remain on Wellbutrin and instead get back on Paxil as both Paxil and Wellbutrin were highlighted as medications that she had done well on. -She really wants to stay on doxepin because it has been helping with sleep; production underwriter agreed and will continue to monitor for serotonin syndrome (no hypertension, tachycardia; patient afebrile; although some tremor/shakiness, no hyperreflexia observed; no complaints of diarrhea or excessive salivation) 08/27 Patient continues to say that she is really bad though does also acknowledge that depression is little better and starting with Zyprexa, anxiety is a little better also. Patient says that she continues to have the shakes and demonstrates as she picks up a pitcher though at rest not observed by production underwriter. Discussed medications and patient would like doxepin did be discontinued worried that perhaps it is contributing to her shaky feeling. Slept well last night and feels that Zyprexa will be enough for insomnia. She likes the idea of being on Paxil and having Lexapro discontinued. Remains isolated and in her room despite discussion about behavioral activation -production underwriter agrees that it is prudent to hold off from ECT at this time and continue with medication management as patient is making incremental improvements 08/28 remains very depressed, isolates in bed; willing to get up and move when prompted. Increaed Paxil to 20mg; pt agrees -will lower clonazepam since sedating; dc AM zyprexa Plan: CV, 15 minute checks DC Lexapro Continue Paxil 20 mg daily Continue Zyprexa 2.5 mg qhs. for excessive anxiety mixed with depression Continue Wellbutrin to XL 150 mg DC doxepin 10 mg q.h.s. clonazepam 0.25 mg 0 900, 1700 for excessive anxiety Consider MRI-brain (per neuro; will wait for EEG results) EEG recs per neuro Collateral contacts Decrease Levothyroxine to 37.5 mg daily and Liothyronine to 2.5 mg daily (consult with hospitalist Dr. Pickens as TSH is 0.01 today and yesterday. Med trials when diagnostics are completed MOCA today 24 (due to depression??) Patient educated on: diagnosis, medication risk/benefits and therapeutic strategies Informed Consent: understands and further education needed Reason for continued inpatient stay Substantial Risk for: inability to function Time Spent With Patient Time: Total time managing care of this patient today ____ minutes.
[2024-08-29 20:00] VITALS: BP 94/61; PULSE 76; TEMP 36.1; O2SAT 98
[2024-08-29] MEDS: traZODone HCL 100 MG TABLET PO (21:13)
[2024-08-30] MEDS: Levothyroxine Sodium 75 MCG TABLET 37.5 MCG PO (06:25)
[2024-08-30] MEDS: clonazePAM 0.5 MG TABLET 0.25 MG PO ×2 (08:48→14:58)
[2024-08-30] MEDS: PARoxetine HCL 20 MG TABLET PO (08:48)
[2024-08-30] MEDS: Cholecalciferol (Vitamin D3) 25 MCG TABLET PO (08:49)
[2024-08-30] MEDS: buPROPion HCl XL 150 MG TAB.ER.24H PO (08:50)
[2024-08-30 10:00] VITALS: BP 94/55; PULSE 77; RESP 14; TEMP 36.6; O2SAT 98
--- NOTE | 2024-08-30 19:09 | HO.PSYCHPN ---
Subjective Subjective Date of Service: 08/30/24 Reason For Visit: Depression, Rule out MCI Interim History: Met with patient; discussed with team, Patient doing better today. She shower today for the 1st time in quite a while and attended a group. Patient up and walking out of her room with improved grooming. She agrees that depression and anxiety are both better and agrees with medication plan. Patient's sister present who discussed treatment plan and also agrees with holding off on ECT since patient seems to be improving on medications Mental Status Exam Mental Status Exam Narrative: Pt is alert and oriented; behavior is cooperative, more friendly and more calm; out of her room more; patient is not in distress; dressed in casual attire much improved hygiene; mood is described as okay and affect congruent, brighter, more calm; eye contact appropriate; Speech is normal rate, volume and prosody and not pressured; still with some psychomotor retardation present; thought process is organized and goal directed; Thought content is on tx; otherwise pertinent to relevant topics and without any delusional content, paranoid ideations or grandiosity; denies any SI/HI. There is no evidence of perceptual disturbance. Patients insight and judgment impaired but possibly improving Diagnostics Vital Signs (24Hr): Vital Signs - 24 hr 08/29/24 20:00 08/30/24 10:00 Temperature 97.0 F 97.9 F Pulse Rate 76 77 Respiratory Rate 14 Blood Pressure 94/61 94/55 L Pulse Oximetry 98 98 Oxygen Delivery Method Room Air Room Air BMI result Body Mass Index 22.1 Labs 08/12/24 12:10 08/12/24 12:10 Imaging Radiology Impressions: ITS Impressions Brain MRI 08/13/24 12:40 IMPRESSION: 1. No acute intracranial abnormalities. 2. Chronic microangiopathy. Electronically signed by: Dina Benton MD 08/13/2024 02:03 PM SEE Medications Medications Current Medications Acetaminophen (Acetaminophen 325 Mg Tablet) 650 mg PO Q6H PRN PRN Reason: Headache/Pain Mild Scale (1-3) Al Hydroxide/Mg Hydroxide (Magnesium Hydrox/Alum Hydrox 30 Ml Oral.Susp) 30 ml PO Q6H PRN PRN Reason: Heartburn/Nausea Bupropion HCl (Bupropion Hcl Xl 150 Mg Tab.Er.24h) 150 mg PO DAILY ESTEBAN Last Admin: 08/30/24 08:50 Dose: 150 mg Clonazepam (Clonazepam 0.5 Mg Tablet) 0.25 mg PO BID@0900,1500 [facility] Last Admin: 08/30/24 14:58 Dose: 0.25 mg Levothyroxine Sodium (Levothyroxine Sodium 75 Mcg Tablet) 37.5 mcg PO DAILY@0600 [facility] Last Admin: 08/30/24 06:25 Dose: 37.5 mcg Magnesium Hydroxide (Milk Of Magnesia 30 Ml Oral.Susp) 30 ml PO DAILY PRN PRN Reason: Constipation Last Admin: 08/24/24 08:58 Dose: 30 ml Nicotine Polacrilex (Nicotine Polacrilex 2 Mg Gum) 4 mg BUCCAL Q2H PRN PRN Reason: Nicotine Cravings Non-Formulary Medication (Liothyronine) 2.5 mcg PO DAILY@0600 [facility] Last Admin: 08/30/24 06:26 Dose: 2.5 mcg Olanzapine (Olanzapine 2.5 Mg Tablet) 2.5 mg PO BEDTIME [facility] Last Admin: 08/29/24 21:13 Dose: 2.5 mg Paroxetine HCl (Paroxetine Hcl 20 Mg Tablet) 20 mg PO DAILY [facility] Last Admin: 08/30/24 08:48 Dose: 20 mg Polyethylene Glycol (Polyethylene Glycol 3350 17 Gm Powd.Pack) 17 gm PO DAILY PRN PRN Reason: Constipation Trazodone HCl (Trazodone Hcl 100 Mg Tablet) 100 mg PO BEDTIME [facility] Last Admin: 08/29/24 21:13 Dose: 100 mg Vitamin D (Cholecalciferol (Vitamin D3) 25 Mcg Tablet) 25 mcg PO DAILY [facility] Last Admin: 08/30/24 08:49 Dose: 25 mcg Allergies Allergies Allergy/AdvReac Type Severity Reaction Status Date / Time No Known Allergies Allergy Verified 08/12/24 11:51 Assessment & Plan Assessment & Plan (1) Recurrent major depression: Status: Acute Code(s): F33.9 - Major depressive disorder, recurrent, unspecified (2) Adult failure to thrive: Status: Acute Code(s): R62.7 - Adult failure to thrive Plan Recurrent Major Depression, Failure to Thrive, Rule out MCI. 08/16: Continue plan of care ?ECT consult. ?Mood stabilizer trial 08/17: Continue Wellbutrin ?MAOI trial Declines ECT consult due to her concern about her memory 08/19: Increase Wellbutrin to 75 mg a.m. Family meeting 08/20. 08/20: continue current tx plan. 08/20 promotion writer, (Dr. Aguayo) also met with patient, sister and [id number] to discuss history of depression, medication management and possible ECT treatment. Patient reports that this is the worst episode of depression she has ever had including her previous hospitalization about a year and a half ago. After that last admission, Patient reports she was started on Paxil and Strattera and did quite well for the next 9-10 months, which family agrees. She is not sure why, but depression started to creep back in which continued until it became severe (no ADLs, not leaving house, family bringing her food and all of the other neurovegetative symptoms of depression other than SI). Patient reports she also did well on Wellbutrin XL 150 mg and Lexapro. 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 Discussed ECT, risks/potential side effects versus potential benefit. Benefits Technician agrees that it is prudent to 1st pursue medication management at this time while keeping ECT as an option, with which patient fully agrees. -switch Wellbutrin to XL 150 mg -will continue Lexapro 20 mg; QTC WNL and patient has no history of any cardiac issues so it remains an option to increase -will also consider restarting Strattera which patient said significantly helped her focus her thinking; Adderall/Ritalin also options -it is also possible to potentially combine Wellbutrin and Paxil which remains an option if patient remains only partially treated 08/21/24 Patient still quite depressed but says no problem with wellbutrin and felt it was noteworthy that today she took a shower today which helped her feel better; patient agreed with behavioral activation Discussed insomnia and trazodone seems to work well enough (mirtazapine cause excessive sleepiness the next day) discussed panic attack and she agrees it might have been due to excessive worries rather than Wellbutrin (which she has tolerated for years in the past); just prior to panic attack, she was perseverating on never getting better, losing her therapy practice, the stigma of ECT defining her as a mental patient. Patient agreed to continue with Wellbutrin. Talked about behavioral activation further; talked about ECT and patient appreciated postponing ECT decision until next week and right now just focusing on medication management. Patient had trouble sleeping; discussed options and she agreed to start doxepin -Patient discussed challenges of depression, worried about losing her career as well as her identity. Patient shared about history, regrets, conflicted feelings over past decisions; Patient feels overwhelmed with being on a psychiatric unit though she also understands the need to treat her depression at this time 2 discussed panic attack and she agrees it might have been due to excessive worries rather than Wellbutrin (which she has tolerated for years in the past); just prior to panic attack, she was perseverating on never getting better, losing her therapy practice, the stigma of ECT defining her as a mental patient. Patient agreed to continue with Wellbutrin. Talked about behavioral activation further; talked about ECT and patient appreciated postponing ECT decision until next week and right now just focusing on medication management. Patient had trouble sleeping; discussed options and she agreed to start doxepin 08/23 Patient said she did sleep better last night with doxepin. She remains depressed. She says that she is anxious to point of being incapacitated which is depressing; she says she just wants to sleep all day and that she does not want to be in the hospital. She says she feels like she has given up. Benefits Technician discussed again behavioral activation and patient said she understands this and will try to push herself to do so. She again says I am not doing that well... Patient again thought that perhaps Wellbutrin was causing her to shake however she again agreed to continue with Wellbutrin, persuaded by the fact that she had been on this dose in the past and done well and that she maybe misinterpreting her shaking. Due to excessive anxiety she agreed to start clonazepam during the day; discussed and patient said she will use a low-dose so as not to be too tired -patient has put in a 3 day notice and is ambivalent about whether not she will remain on the unit for treatment; ambivalent about ECT 08/24/24 - riding out side effects of added medication- pending dc on 3 day 08/27 08/26 Patient reports that she does not feel like she is doing well. She does acknowledge that her depression is little better and says that she has an appetite, sees herself eating more and has gained 5 lb; she is also brushing her teeth and attending to ADLs more regularly. She remains isolated staying in her room with much anxiety and feels anxiety is overall worse. She wonders if as the depression clears up a bit, it has uncovered more of her anxiety. Patient also says that she feels like she is shakey for past 3 days Patient very much does not like being on the unit however she said she realizes she is not ready to go home, that she feels awful and retracted her 3 day notice; patient was tearful and doing so, saying she very much wanted to be at home and is deeply saddened that she can not restart her therapy practice; she says this dampening her mood further Discussed medication management. Discussed possibility of serotonin syndrome due to shakey feeling as she is on Lexapro, low-dose doxepin and Wellbutrin which could give some contribution. -Patient agrees to come off Lexapro since there was never a strong feeling that this was helpful. -She also agreed to try low-dose Zyprexa to help with anxiety written depression -She agrees to remain on Wellbutrin and instead get back on Paxil as both Paxil and Wellbutrin were highlighted as medications that she had done well on. -She really wants to stay on doxepin because it has been helping with sleep; promotion writer agreed and will continue to monitor for serotonin syndrome (no hypertension, tachycardia; patient afebrile; although some tremor/shakiness, no hyperreflexia observed; no complaints of diarrhea or excessive salivation) 08/27 Patient continues to say that she is really bad though does also acknowledge that depression is little better and starting with Zyprexa, anxiety is a little better also. Patient says that she continues to have the shakes and demonstrates as she picks up a pitcher though at rest not observed by promotion writer. Discussed medications and patient would like doxepin did be discontinued worried that perhaps it is contributing to her shaky feeling. Slept well last night and feels that Zyprexa will be enough for insomnia. She likes the idea of being on Paxil and having Lexapro discontinued. Remains isolated and in her room despite discussion about behavioral activation -promotion writer agrees that it is prudent to hold off from ECT at this time and continue with medication management as patient is making incremental improvements 08/28 remains very depressed, isolates in bed; willing to get up and move when prompted. Increaed Paxil to 20mg; pt agrees -will lower clonazepam since sedating; dc AM zyprexa 08/30 Patient doing better today. She shower today for the 1st time in quite a while and attended a group. Patient up and walking out of her room with improved grooming. She agrees that depression and anxiety are both better and agrees with medication plan. Patient's sister present who discussed treatment plan and also agrees with holding off on ECT since patient seems to be improving on medications -1st day of any such improvement and patient will need to have several days of improved mood to determine that medications are effective Plan: CV, 15 minute checks DC Lexapro Continue Paxil 20 mg daily Continue Zyprexa 2.5 mg qhs. for excessive anxiety mixed with depression Continue Wellbutrin to XL 150 mg DC doxepin 10 mg q.h.s. clonazepam 0.25 mg 0 900, 1700 for excessive anxiety Consider MRI-brain (per neuro; will wait for EEG results) EEG recs per neuro Collateral contacts Decrease Levothyroxine to 37.5 mg daily and Liothyronine to 2.5 mg daily (consult with hospitalist Dr. Pickens as TSH is 0.01 today and yesterday. Med trials when diagnostics are completed MOCA today 24 (due to depression??) Patient educated on: diagnosis, medication risk/benefits and therapeutic strategies Informed Consent: understands Reason for continued inpatient stay Substantial Risk for: inability to function and rapid decompensation Time Spent With Patient Time: Total time managing care of this patient today ____ minutes.
[2024-08-30 20:00] VITALS: RESP 18
[2024-08-30] MEDS: OLANZapine 2.5 MG TABLET PO (20:47)
[2024-08-30] MEDS: traZODone HCL 100 MG TABLET PO (20:47)
[2024-08-31] MEDS: Levothyroxine Sodium 75 MCG TABLET 37.5 MCG PO (05:31)
[2024-08-31 07:54] VITALS: BP 108/56; PULSE 61; RESP 18; TEMP 35.9; O2SAT 96
[2024-08-31] MEDS: buPROPion HCl XL 150 MG TAB.ER.24H PO (08:54)
[2024-08-31] MEDS: Cholecalciferol (Vitamin D3) 25 MCG TABLET PO (08:54)
[2024-08-31] MEDS: PARoxetine HCL 20 MG TABLET PO (08:54)
[2024-08-31] MEDS: clonazePAM 0.5 MG TABLET 0.25 MG PO ×2 (08:56→15:11)
--- NOTE | 2024-08-31 16:02 | HO.PSYCHPN ---
Subjective Subjective Date of Service: 08/31/24 Reason For Visit: Depression, Rule out MCI Interim History: Met with patient, discussed with team Patient remains overall better, agreeing that depression and anxiety are both better. Still feeling shaky the procedure writer notices it seems tremor is only apparent when she is picking something up. Patient is out of her room more often and though she still does not like being on the unit at all, feels that her attitude is overall better. She rates herself a 5 or 6/10, 10 being her regular self. Discussed again medication regimen which will leave as is however procedure writer will reach out to endocrine on Monday to discuss medication regimen and low TSH Mental Status Exam Mental Status Exam Narrative: Pt is alert and oriented; behavior is cooperative, more friendly and more calm; out of her room more; patient is not in distress; dressed in casual attire much improved hygiene; mood is described as okay and affect congruent, brighter, more calm; eye contact appropriate; Speech is normal rate, volume and prosody and not pressured; still with some psychomotor retardation present; thought process is organized and goal directed; Thought content is on tx, more hopeful; otherwise pertinent to relevant topics and without any delusional content, paranoid ideations or grandiosity; denies any SI/HI. There is no evidence of perceptual disturbance. Patients insight and judgment impaired but improving Diagnostics Vital Signs (24Hr): Vital Signs - 24 hr 08/30/24 20:00 08/31/24 07:54 Temperature 96.7 F L Pulse Rate 61 Respiratory Rate 18 18 Blood Pressure 108/56 L Pulse Oximetry 96 Oxygen Delivery Method Room Air BMI result Body Mass Index 22.1 Labs 08/12/24 12:10 08/12/24 12:10 Imaging Radiology Impressions: ITS Impressions Brain MRI 08/13/24 12:40 IMPRESSION: 1. No acute intracranial abnormalities. 2. Chronic microangiopathy. Electronically signed by: Dina Benton MD 08/13/2024 02:03 PM SEE Medications Medications Current Medications Acetaminophen (Acetaminophen 325 Mg Tablet) 650 mg PO Q6H PRN PRN Reason: Headache/Pain Mild Scale (1-3) Al Hydroxide/Mg Hydroxide (Magnesium Hydrox/Alum Hydrox 30 Ml Oral.Susp) 30 ml PO Q6H PRN PRN Reason: Heartburn/Nausea Bupropion HCl (Bupropion Hcl Xl 150 Mg Tab.Er.24h) 150 mg PO DAILY [facility] Last Admin: 08/31/24 08:54 Dose: 150 mg Clonazepam (Clonazepam 0.5 Mg Tablet) 0.25 mg PO BID@0900,1500 [facility] Last Admin: 08/31/24 15:11 Dose: 0.25 mg Levothyroxine Sodium (Levothyroxine Sodium 75 Mcg Tablet) 37.5 mcg PO DAILY@0600 [facility] Last Admin: 08/31/24 05:31 Dose: 37.5 mcg Magnesium Hydroxide (Milk Of Magnesia 30 Ml Oral.Susp) 30 ml PO DAILY PRN PRN Reason: Constipation Last Admin: 08/24/24 08:58 Dose: 30 ml Nicotine Polacrilex (Nicotine Polacrilex 2 Mg Gum) 4 mg BUCCAL Q2H PRN PRN Reason: Nicotine Cravings Non-Formulary Medication (Liothyronine) 2.5 mcg PO DAILY@0600 [facility] Last Admin: 08/31/24 05:31 Dose: 2.5 mcg Olanzapine (Olanzapine 2.5 Mg Tablet) 2.5 mg PO BEDTIME [facility] Last Admin: 08/30/24 20:47 Dose: 2.5 mg Paroxetine HCl (Paroxetine Hcl 20 Mg Tablet) 20 mg PO DAILY [facility] Last Admin: 08/31/24 08:54 Dose: 20 mg Polyethylene Glycol (Polyethylene Glycol 3350 17 Gm Powd.Pack) 17 gm PO DAILY PRN PRN Reason: Constipation Trazodone HCl (Trazodone Hcl 100 Mg Tablet) 100 mg PO BEDTIME [facility] Last Admin: 08/30/24 20:47 Dose: 100 mg Vitamin D (Cholecalciferol (Vitamin D3) 25 Mcg Tablet) 25 mcg PO DAILY [facility] Last Admin: 08/31/24 08:54 Dose: 25 mcg Allergies Allergies Allergy/AdvReac Type Severity Reaction Status Date / Time No Known Allergies Allergy Verified 08/12/24 11:51 Assessment & Plan Assessment & Plan (1) Recurrent major depression: Status: Acute Code(s): F33.9 - Major depressive disorder, recurrent, unspecified (2) Adult failure to thrive: Status: Acute Code(s): R62.7 - Adult failure to thrive Plan Recurrent Major Depression, Failure to Thrive, Rule out MCI. 08/16: Continue plan of care ?ECT consult. ?Mood stabilizer trial 08/17: Continue Wellbutrin ?MAOI trial Declines ECT consult due to her concern about her memory 08/19: Increase Wellbutrin to 75 mg a.m. Family meeting 08/20. 08/20: continue current tx plan. 08/20 procedure writer, (Dr. Aguayo) also met with patient, sister and [id number] to discuss history of depression, medication management and possible ECT treatment. Patient reports that this is the worst episode of depression she has ever had including her previous hospitalization about a year and a half ago. After that last admission, Patient reports she was started on Paxil and Strattera and did quite well for the next 9-10 months, which family agrees. She is not sure why, but depression started to creep back in which continued until it became severe (no ADLs, not leaving house, family bringing her food and all of the other neurovegetative symptoms of depression other than SI). Patient reports she also did well on Wellbutrin XL 150 mg and Lexapro. 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 Discussed ECT, risks/potential side effects versus potential benefit. Property Insurance Inspector agrees that it is prudent to 1st pursue medication management at this time while keeping ECT as an option, with which patient fully agrees. -switch Wellbutrin to XL 150 mg -will continue Lexapro 20 mg; QTC WNL and patient has no history of any cardiac issues so it remains an option to increase -will also consider restarting Strattera which patient said significantly helped her focus her thinking; Adderall/Ritalin also options -it is also possible to potentially combine Wellbutrin and Paxil which remains an option if patient remains only partially treated 08/21/24 Patient still quite depressed but says no problem with wellbutrin and felt it was noteworthy that today she took a shower today which helped her feel better; patient agreed with behavioral activation Discussed insomnia and trazodone seems to work well enough (mirtazapine cause excessive sleepiness the next day) discussed panic attack and she agrees it might have been due to excessive worries rather than Wellbutrin (which she has tolerated for years in the past); just prior to panic attack, she was perseverating on never getting better, losing her therapy practice, the stigma of ECT defining her as a mental patient. Patient agreed to continue with Wellbutrin. Talked about behavioral activation further; talked about ECT and patient appreciated postponing ECT decision until next week and right now just focusing on medication management. Patient had trouble sleeping; discussed options and she agreed to start doxepin -Patient discussed challenges of depression, worried about losing her career as well as her identity. Patient shared about history, regrets, conflicted feelings over past decisions; Patient feels overwhelmed with being on a psychiatric unit though she also understands the need to treat her depression at this time 12 discussed panic attack and she agrees it might have been due to excessive worries rather than Wellbutrin (which she has tolerated for years in the past); just prior to panic attack, she was perseverating on never getting better, losing her therapy practice, the stigma of ECT defining her as a mental patient. Patient agreed to continue with Wellbutrin. Talked about behavioral activation further; talked about ECT and patient appreciated postponing ECT decision until next week and right now just focusing on medication management. Patient had trouble sleeping; discussed options and she agreed to start doxepin 08/23 Patient said she did sleep better last night with doxepin. She remains depressed. She says that she is anxious to point of being incapacitated which is depressing; she says she just wants to sleep all day and that she does not want to be in the hospital. She says she feels like she has given up. Property Insurance Inspector discussed again behavioral activation and patient said she understands this and will try to push herself to do so. She again says I am not doing that well... Patient again thought that perhaps Wellbutrin was causing her to shake however she again agreed to continue with Wellbutrin, persuaded by the fact that she had been on this dose in the past and done well and that she maybe misinterpreting her shaking. Due to excessive anxiety she agreed to start clonazepam during the day; discussed and patient said she will use a low-dose so as not to be too tired -patient has put in a 3 day notice and is ambivalent about whether not she will remain on the unit for treatment; ambivalent about ECT 08/24/24 - riding out side effects of added medication- pending dc on 3 day 08/27 08/26 Patient reports that she does not feel like she is doing well. She does acknowledge that her depression is little better and says that she has an appetite, sees herself eating more and has gained 5 lb; she is also brushing her teeth and attending to ADLs more regularly. She remains isolated staying in her room with much anxiety and feels anxiety is overall worse. She wonders if as the depression clears up a bit, it has uncovered more of her anxiety. Patient also says that she feels like she is shakey for past 3 days Patient very much does not like being on the unit however she said she realizes she is not ready to go home, that she feels awful and retracted her 3 day notice; patient was tearful and doing so, saying she very much wanted to be at home and is deeply saddened that she can not restart her therapy practice; she says this dampening her mood further Discussed medication management. Discussed possibility of serotonin syndrome due to shakey feeling as she is on Lexapro, low-dose doxepin and Wellbutrin which could give some contribution. -Patient agrees to come off Lexapro since there was never a strong feeling that this was helpful. -She also agreed to try low-dose Zyprexa to help with anxiety written depression -She agrees to remain on Wellbutrin and instead get back on Paxil as both Paxil and Wellbutrin were highlighted as medications that she had done well on. -She really wants to stay on doxepin because it has been helping with sleep; procedure writer agreed and will continue to monitor for serotonin syndrome (no hypertension, tachycardia; patient afebrile; although some tremor/shakiness, no hyperreflexia observed; no complaints of diarrhea or excessive salivation) 08/27 Patient continues to say that she is really bad though does also acknowledge that depression is little better and starting with Zyprexa, anxiety is a little better also. Patient says that she continues to have the shakes and demonstrates as she picks up a pitcher though at rest not observed by procedure writer. Discussed medications and patient would like doxepin did be discontinued worried that perhaps it is contributing to her shaky feeling. Slept well last night and feels that Zyprexa will be enough for insomnia. She likes the idea of being on Paxil and having Lexapro discontinued. Remains isolated and in her room despite discussion about behavioral activation -procedure writer agrees that it is prudent to hold off from ECT at this time and continue with medication management as patient is making incremental improvements 08/28 remains very depressed, isolates in bed; willing to get up and move when prompted. Increaed Paxil to 20mg; pt agrees -will lower clonazepam since sedating; dc AM zyprexa 08/30 Patient doing better today. She shower today for the 1st time in quite a while and attended a group. Patient up and walking out of her room with improved grooming. She agrees that depression and anxiety are both better and agrees with medication plan. Patient's sister present who discussed treatment plan and also agrees with holding off on ECT since patient seems to be improving on medications -1st day of any such improvement and patient will need to have several days of improved mood to determine that medications are effective 08/31 Patient remains overall better, agreeing that depression and anxiety are both better. Still feeling shaky the procedure writer notices it seems tremor is only apparent when she is picking something up. Patient is out of her room more often and though she still does not like being on the unit at all, feels that her attitude is overall better. She rates herself a 5 or 6/10, 10 being her regular self. Discussed again medication regimen which will leave as is however procedure writer will reach out to endocrine on Monday to discuss medication regimen and low TSH Plan: CV, 15 minute checks DC Lexapro Continue Paxil 30 mg daily Continue Zyprexa 2.5 mg qhs. for excessive anxiety mixed with depression Continue Wellbutrin to XL 150 mg DC doxepin 10 mg q.h.s. clonazepam 0.25 mg 0 900, 1700 for excessive anxiety Consider MRI-brain (per neuro; will wait for EEG results) EEG recs per neuro Collateral contacts Decrease Levothyroxine to 37.5 mg daily and Liothyronine to 2.5 mg daily (consult with hospitalist Dr. Pickens as TSH is 0.01 today and yesterday. Med trials when diagnostics are completed MOCA today 24 (due to depression??) Patient educated on: diagnosis, medication risk/benefits and medical condition Informed Consent: understands Reason for continued inpatient stay Substantial Risk for: stable for discharge and rapid decompensation Time Spent With Patient Time: Total time managing care of this patient today ____ minutes.
[2024-08-31] MEDS: traZODone HCL 100 MG TABLET PO (21:07)
[2024-08-31] MEDS: OLANZapine 2.5 MG TABLET PO (21:07)
[2024-09-01] MEDS: Levothyroxine Sodium 75 MCG TABLET 37.5 MCG PO (06:27)
[2024-09-01 07:36] VITALS: BP 134/68; PULSE 65; TEMP 36.7; O2SAT 97
[2024-09-01] MEDS: buPROPion HCl XL 150 MG TAB.ER.24H PO (08:43)
[2024-09-01] MEDS: clonazePAM 0.5 MG TABLET 0.25 MG PO (08:44)
[2024-09-01] MEDS: PARoxetine HCL 30 MG TABLET PO (08:44)
[2024-09-01] MEDS: Cholecalciferol (Vitamin D3) 25 MCG TABLET PO (08:44)
--- NOTE | 2024-09-01 16:15 | HO.PSYCHPN ---
Subjective Subjective Date of Service: 09/01/24 Reason For Visit: Depression, Rule out MCI Interim History: Met with patient; discussed with team Patient says she is not so great because she is feeling tired. However she continues to agree that her overall mood and anxiety are improved. Again discussed medication. Again discussed TSH and that typewriters functional tester will discuss with endocrinology on Monday Mental Status Exam Mental Status Exam Narrative: Pt is alert and oriented; behavior is cooperative, more friendly and more calm; out of her room more; patient is not in distress; dressed in casual attire much improved hygiene; mood is described as not so great and affect congruent, brighter, more calm; eye contact appropriate; Speech is normal rate, volume and prosody and not pressured; still with some psychomotor retardation present; thought process is organized and goal directed; Thought content is on tx, more hopeful; otherwise pertinent to relevant topics and without any delusional content, paranoid ideations or grandiosity; denies any SI/HI. There is no evidence of perceptual disturbance. Patients insight and judgment impaired but improving Diagnostics Vital Signs (24Hr): Vital Signs - 24 hr 09/01/24 07:36 Temperature 98.0 F Pulse Rate 65 Blood Pressure 134/68 Pulse Oximetry 97 Oxygen Delivery Method Room Air BMI result Body Mass Index 22.1 Labs 08/12/24 12:10 08/12/24 12:10 Imaging Radiology Impressions: ITS Impressions Brain MRI 08/13/24 12:40 IMPRESSION: 1. No acute intracranial abnormalities. 2. Chronic microangiopathy. Electronically signed by: Dina Benton MD 08/13/2024 02:03 PM SEE Medications Medications Current Medications Acetaminophen (Acetaminophen 325 Mg Tablet) 650 mg PO Q6H PRN PRN Reason: Headache/Pain Mild Scale (1-3) Al Hydroxide/Mg Hydroxide (Magnesium Hydrox/Alum Hydrox 30 Ml Oral.Susp) 30 ml PO Q6H PRN PRN Reason: Heartburn/Nausea Bupropion HCl (Bupropion Hcl Xl 150 Mg Tab.Er.24h) 150 mg PO DAILY ESTEBAN Last Admin: 09/01/24 08:43 Dose: 150 mg Clonazepam (Clonazepam 0.5 Mg Tablet) 0.25 mg PO BID PRN PRN Reason: panic type anxiety Levothyroxine Sodium (Levothyroxine Sodium 75 Mcg Tablet) 37.5 mcg PO DAILY@0600 [facility] Last Admin: 09/01/24 06:27 Dose: 37.5 mcg Magnesium Hydroxide (Milk Of Magnesia 30 Ml Oral.Susp) 30 ml PO DAILY PRN PRN Reason: Constipation Last Admin: 08/24/24 08:58 Dose: 30 ml Nicotine Polacrilex (Nicotine Polacrilex 2 Mg Gum) 4 mg BUCCAL Q2H PRN PRN Reason: Nicotine Cravings Non-Formulary Medication (Liothyronine) 2.5 mcg PO DAILY@0600 [facility] Last Admin: 09/01/24 06:27 Dose: 2.5 mcg Olanzapine (Olanzapine 2.5 Mg Tablet) 2.5 mg PO BEDTIME [facility] Last Admin: 08/31/24 21:07 Dose: 2.5 mg Paroxetine HCl (Paroxetine Hcl 30 Mg Tablet) 30 mg PO DAILY [facility] Last Admin: 09/01/24 08:44 Dose: 30 mg Polyethylene Glycol (Polyethylene Glycol 3350 17 Gm Powd.Pack) 17 gm PO DAILY PRN PRN Reason: Constipation Trazodone HCl (Trazodone Hcl 100 Mg Tablet) 100 mg PO BEDTIME [facility] Last Admin: 08/31/24 21:07 Dose: 100 mg Vitamin D (Cholecalciferol (Vitamin D3) 25 Mcg Tablet) 25 mcg PO DAILY [facility] Last Admin: 09/01/24 08:44 Dose: 25 mcg Allergies Allergies Allergy/AdvReac Type Severity Reaction Status Date / Time No Known Allergies Allergy Verified 08/12/24 11:51 Assessment & Plan Assessment & Plan (1) Recurrent major depression: Status: Acute Code(s): F33.9 - Major depressive disorder, recurrent, unspecified (2) Adult failure to thrive: Status: Acute Code(s): R62.7 - Adult failure to thrive Plan Recurrent Major Depression, Failure to Thrive, Rule out MCI. 08/16: Continue plan of care ?ECT consult. ?Mood stabilizer trial 08/17: Continue Wellbutrin ?MAOI trial Declines ECT consult due to her concern about her memory 08/19: Increase Wellbutrin to 75 mg a.m. Family meeting 08/20. 08/20: continue current tx plan. 08/20 typewriters functional tester, (Dr. Aguayo) also met with patient, sister and [id number] to discuss history of depression, medication management and possible ECT treatment. Patient reports that this is the worst episode of depression she has ever had including her previous hospitalization about a year and a half ago. After that last admission, Patient reports she was started on Paxil and Strattera and did quite well for the next 9-10 months, which family agrees. She is not sure why, but depression started to creep back in which continued until it became severe (no ADLs, not leaving house, family bringing her food and all of the other neurovegetative symptoms of depression other than SI). Patient reports she also did well on Wellbutrin XL 150 mg and Lexapro. 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 Discussed ECT, risks/potential side effects versus potential benefit. Mri Ct Tech agrees that it is prudent to 1st pursue medication management at this time while keeping ECT as an option, with which patient fully agrees. -switch Wellbutrin to XL 150 mg -will continue Lexapro 20 mg; QTC WNL and patient has no history of any cardiac issues so it remains an option to increase -will also consider restarting Strattera which patient said significantly helped her focus her thinking; Adderall/Ritalin also options -it is also possible to potentially combine Wellbutrin and Paxil which remains an option if patient remains only partially treated 08/21/24 Patient still quite depressed but says no problem with wellbutrin and felt it was noteworthy that today she took a shower today which helped her feel better; patient agreed with behavioral activation Discussed insomnia and trazodone seems to work well enough (mirtazapine cause excessive sleepiness the next day) discussed panic attack and she agrees it might have been due to excessive worries rather than Wellbutrin (which she has tolerated for years in the past); just prior to panic attack, she was perseverating on never getting better, losing her therapy practice, the stigma of ECT defining her as a mental patient. Patient agreed to continue with Wellbutrin. Talked about behavioral activation further; talked about ECT and patient appreciated postponing ECT decision until next week and right now just focusing on medication management. Patient had trouble sleeping; discussed options and she agreed to start doxepin -Patient discussed challenges of depression, worried about losing her career as well as her identity. Patient shared about history, regrets, conflicted feelings over past decisions; Patient feels overwhelmed with being on a psychiatric unit though she also understands the need to treat her depression at this time 2 discussed panic attack and she agrees it might have been due to excessive worries rather than Wellbutrin (which she has tolerated for years in the past); just prior to panic attack, she was perseverating on never getting better, losing her therapy practice, the stigma of ECT defining her as a mental patient. Patient agreed to continue with Wellbutrin. Talked about behavioral activation further; talked about ECT and patient appreciated postponing ECT decision until next week and right now just focusing on medication management. Patient had trouble sleeping; discussed options and she agreed to start doxepin 08/23 Patient said she did sleep better last night with doxepin. She remains depressed. She says that she is anxious to point of being incapacitated which is depressing; she says she just wants to sleep all day and that she does not want to be in the hospital. She says she feels like she has given up. Mri Ct Tech discussed again behavioral activation and patient said she understands this and will try to push herself to do so. She again says I am not doing that well... Patient again thought that perhaps Wellbutrin was causing her to shake however she again agreed to continue with Wellbutrin, persuaded by the fact that she had been on this dose in the past and done well and that she maybe misinterpreting her shaking. Due to excessive anxiety she agreed to start clonazepam during the day; discussed and patient said she will use a low-dose so as not to be too tired -patient has put in a 3 day notice and is ambivalent about whether not she will remain on the unit for treatment; ambivalent about ECT 08/24/24 - riding out side effects of added medication- pending dc on 3 day 08/27 08/26 Patient reports that she does not feel like she is doing well. She does acknowledge that her depression is little better and says that she has an appetite, sees herself eating more and has gained 5 lb; she is also brushing her teeth and attending to ADLs more regularly. She remains isolated staying in her room with much anxiety and feels anxiety is overall worse. She wonders if as the depression clears up a bit, it has uncovered more of her anxiety. Patient also says that she feels like she is shakey for past 3 days Patient very much does not like being on the unit however she said she realizes she is not ready to go home, that she feels awful and retracted her 3 day notice; patient was tearful and doing so, saying she very much wanted to be at home and is deeply saddened that she can not restart her therapy practice; she says this dampening her mood further Discussed medication management. Discussed possibility of serotonin syndrome due to shakey feeling as she is on Lexapro, low-dose doxepin and Wellbutrin which could give some contribution. -Patient agrees to come off Lexapro since there was never a strong feeling that this was helpful. -She also agreed to try low-dose Zyprexa to help with anxiety written depression -She agrees to remain on Wellbutrin and instead get back on Paxil as both Paxil and Wellbutrin were highlighted as medications that she had done well on. -She really wants to stay on doxepin because it has been helping with sleep; typewriters functional tester agreed and will continue to monitor for serotonin syndrome (no hypertension, tachycardia; patient afebrile; although some tremor/shakiness, no hyperreflexia observed; no complaints of diarrhea or excessive salivation) 08/27 Patient continues to say that she is really bad though does also acknowledge that depression is little better and starting with Zyprexa, anxiety is a little better also. Patient says that she continues to have the shakes and demonstrates as she picks up a pitcher though at rest not observed by typewriters functional tester. Discussed medications and patient would like doxepin did be discontinued worried that perhaps it is contributing to her shaky feeling. Slept well last night and feels that Zyprexa will be enough for insomnia. She likes the idea of being on Paxil and having Lexapro discontinued. Remains isolated and in her room despite discussion about behavioral activation -typewriters functional tester agrees that it is prudent to hold off from ECT at this time and continue with medication management as patient is making incremental improvements 08/28 remains very depressed, isolates in bed; willing to get up and move when prompted. Increaed Paxil to 20mg; pt agrees -will lower clonazepam since sedating; dc AM zyprexa 08/30 Patient doing better today. She shower today for the 1st time in quite a while and attended a group. Patient up and walking out of her room with improved grooming. She agrees that depression and anxiety are both better and agrees with medication plan. Patient's sister present who discussed treatment plan and also agrees with holding off on ECT since patient seems to be improving on medications -1st day of any such improvement and patient will need to have several days of improved mood to determine that medications are effective 08/31 Patient remains overall better, agreeing that depression and anxiety are both better. Still feeling shaky the typewriters functional tester notices it seems tremor is only apparent when she is picking something up. Patient is out of her room more often and though she still does not like being on the unit at all, feels that her attitude is overall better. She rates herself a 5 or 6/10, 10 being her regular self. Discussed again medication regimen which will leave as is however typewriters functional tester will reach out to endocrine on Monday to discuss medication regimen and low TSH 09/01 remains overall brighter, with mood and anxiety improved. Patient has reported shaking this could be due to excess T3 Liothyronine; will discuss with endocrinology -patient asked about possible discharge and typewriters functional tester agrees that she continues to improve and if remains so, will start discussing discharge planning Plan: CV, 15 minute checks DC Lexapro Continue Paxil 30 mg daily Continue Zyprexa 2.5 mg qhs. for excessive anxiety mixed with depression Continue Wellbutrin to XL 150 mg DC doxepin 10 mg q.h.s. clonazepam 0.25 mg 0 900, 1700 for excessive anxiety Consider MRI-brain (per neuro; will wait for EEG results) EEG recs per neuro Collateral contacts Decrease Levothyroxine to 37.5 mg daily and Liothyronine to 2.5 mg daily (consult with hospitalist Dr. Pickens as TSH is 0.01 today and yesterday. Med trials when diagnostics are completed MOCA today 24 (due to depression??) Patient educated on: diagnosis, medication risk/benefits and medical condition Informed Consent: understands Reason for continued inpatient stay Substantial Risk for: stable for discharge, rapid decompensation and med/psych decompensation Time Spent With Patient Time: Total time managing care of this patient today ____ minutes.
[2024-09-01] MEDS: traZODone HCL 100 MG TABLET PO (21:42)
[2024-09-01] MEDS: OLANZapine 2.5 MG TABLET PO (21:42)
[2024-09-02] MEDS: Levothyroxine Sodium 75 MCG TABLET 37.5 MCG PO (07:30)
[2024-09-02 09:01] VITALS: BP 96/54; PULSE 71; RESP 14; TEMP 36.1; O2SAT 96
[2024-09-02] MEDS: Cholecalciferol (Vitamin D3) 25 MCG TABLET PO (09:06)
[2024-09-02] MEDS: PARoxetine HCL 30 MG TABLET PO (09:06)
[2024-09-02] MEDS: buPROPion HCl XL 150 MG TAB.ER.24H PO (09:06)
--- NOTE | 2024-09-02 18:39 | P.PNPSI_ITS ---
Subjective Subjective Date of Service: 09/02/24 Reason For Visit: Depression, Rule out MCI Interim History: Met with patient; discussed with team Patient feeling much better than she has and rates herself a 6/10, 10 being her normal self. Patient feels that anxiety and depression both remain improved. Patient for the 1st time is asking for discharge to go home later this week feeling that enough has been accomplished, that she is doing overall better and ready to continue treatment as an outpatient. Natural Resources Technician discussed thyroid medication/symptoms with patient after having reviewed thyroid medication with film numberer Dr. Rojas. Dr. Medina recommends discontinuing Liothyronine as TSH is too low indicating excessive T3; this may also alleviate patient's experience of shakiness. Dr. Medina also agrees with having lowered Synthroid. Recommends monitoring free T4 every other day for couple days and then have outpatient PCP follow-up with TSH which will take 4 weeks to adjust. Mental Status Exam Mental Status Exam Narrative: Pt is alert and oriented; behavior is cooperative, friendly and calm; patient is not in distress; dressed in casual attire with unkempt hair but adequate hygiene; mood is described as good and affect congruent; eye contact appropriate; Speech is normal rate, volume and prosody and not pressured; no psychomotor agitation/retardation present; thought process is organized and goal directed; Thought content is on tx; otherwise pertinent to relevant topics and without any delusional content, paranoid ideations or grandiosity; denies any SI/HI. There is no evidence of perceptual disturbance. Patients insight and judgment appear intact. Diagnostics Vital Signs (24Hr): Vital Signs - 24 hr 09/02/24 09:01 Temperature 96.9 F Pulse Rate 71 Respiratory Rate 14 Blood Pressure 96/54 L Pulse Oximetry 96 Oxygen Delivery Method Room Air BMI result Body Mass Index 22.1 Labs 08/12/24 12:10 08/12/24 12:10 Imaging Radiology Impressions: ITS Impressions Brain MRI 08/13/24 12:40 IMPRESSION: 1. No acute intracranial abnormalities. 2. Chronic microangiopathy. Electronically signed by: Dina Benton MD 08/13/2024 02:03 PM SEE Medications Medications Current Medications Acetaminophen (Acetaminophen 325 Mg Tablet) 650 mg PO Q6H PRN PRN Reason: Headache/Pain Mild Scale (1-3) Al Hydroxide/Mg Hydroxide (Magnesium Hydrox/Alum Hydrox 30 Ml Oral.Susp) 30 ml PO Q6H PRN PRN Reason: Heartburn/Nausea Bupropion HCl (Bupropion Hcl Xl 150 Mg Tab.Er.24h) 150 mg PO DAILY [facility] Last Admin: 09/02/24 09:06 Dose: 150 mg Clonazepam (Clonazepam 0.5 Mg Tablet) 0.25 mg PO BID PRN PRN Reason: panic type anxiety Levothyroxine Sodium (Levothyroxine Sodium 25 Mcg Tablet) 37.5 mcg PO DAILY@0600 [facility] Magnesium Hydroxide (Milk Of Magnesia 30 Ml Oral.Susp) 30 ml PO DAILY PRN PRN Reason: Constipation Last Admin: 08/24/24 08:58 Dose: 30 ml Nicotine Polacrilex (Nicotine Polacrilex 2 Mg Gum) 4 mg BUCCAL Q2H PRN PRN Reason: Nicotine Cravings Olanzapine (Olanzapine 2.5 Mg Tablet) 2.5 mg PO BEDTIME [facility] Last Admin: 09/01/24 21:42 Dose: 2.5 mg Paroxetine HCl (Paroxetine Hcl 30 Mg Tablet) 30 mg PO DAILY [facility] Last Admin: 09/02/24 09:06 Dose: 30 mg Polyethylene Glycol (Polyethylene Glycol 3350 17 Gm Powd.Pack) 17 gm PO DAILY PRN PRN Reason: Constipation Trazodone HCl (Trazodone Hcl 100 Mg Tablet) 100 mg PO BEDTIME [facility] Last Admin: 09/01/24 21:42 Dose: 100 mg Vitamin D (Cholecalciferol (Vitamin D3) 25 Mcg Tablet) 25 mcg PO DAILY [facility] Last Admin: 09/02/24 09:06 Dose: 25 mcg Allergies Allergies Allergy/AdvReac Type Severity Reaction Status Date / Time No Known Allergies Allergy Verified 08/12/24 11:51 Assessment & Plan Assessment & Plan (1) Recurrent major depression: Status: Acute Code(s): F33.9 - Major depressive disorder, recurrent, unspecified (2) Adult failure to thrive: Status: Acute Code(s): R62.7 - Adult failure to thrive Plan Recurrent Major Depression, Failure to Thrive, Rule out MCI. 08/16: Continue plan of care ?ECT consult. ?Mood stabilizer trial 08/17: Continue Wellbutrin ?MAOI trial Declines ECT consult due to her concern about her memory 08/19: Increase Wellbutrin to 75 mg a.m. Family meeting 08/20. 08/20: continue current tx plan. 08/20 typewriter assembler, (Dr. Aguayo) also met with patient, sister and [id number] to discuss history of depression, medication management and possible ECT treatment. Patient reports that this is the worst episode of depression she has ever had including her previous hospitalization about a year and a half ago. After that last admission, Patient reports she was started on Paxil and Strattera and did quite well for the next 9-10 months, which family agrees. She is not sure why, but depression started to creep back in which continued until it became severe (no ADLs, not leaving house, family bringing her food and all of the other neurovegetative symptoms of depression other than SI). Patient reports she also did well on Wellbutrin XL 150 mg and Lexapro. 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 Discussed ECT, risks/potential side effects versus potential benefit. Natural Resources Technician agrees that it is prudent to 1st pursue medication management at this time while keeping ECT as an option, with which patient fully agrees. -switch Wellbutrin to XL 150 mg -will continue Lexapro 20 mg; QTC WNL and patient has no history of any cardiac issues so it remains an option to increase -will also consider restarting Strattera which patient said significantly helped her focus her thinking; Adderall/Ritalin also options -it is also possible to potentially combine Wellbutrin and Paxil which remains an option if patient remains only partially treated 08/21/24 Patient still quite depressed but says no problem with wellbutrin and felt it was noteworthy that today she took a shower today which helped her feel better; patient agreed with behavioral activation Discussed insomnia and trazodone seems to work well enough (mirtazapine cause excessive sleepiness the next day) discussed panic attack and she agrees it might have been due to excessive worries rather than Wellbutrin (which she has tolerated for years in the past); just prior to panic attack, she was perseverating on never getting better, losing her therapy practice, the stigma of ECT defining her as a mental patient. Patient agreed to continue with Wellbutrin. Talked about behavioral activation further; talked about ECT and patient appreciated postponing ECT decision until next week and right now just focusing on medication management. Patient had trouble sleeping; discussed options and she agreed to start doxepin -Patient discussed challenges of depression, worried about losing her career as well as her identity. Patient shared about history, regrets, conflicted feelings over past decisions; Patient feels overwhelmed with being on a psychiatric unit though she also understands the need to treat her depression at this time 2 discussed panic attack and she agrees it might have been due to excessive worries rather than Wellbutrin (which she has tolerated for years in the past); just prior to panic attack, she was perseverating on never getting better, losing her therapy practice, the stigma of ECT defining her as a mental patient. Patient agreed to continue with Wellbutrin. Talked about behavioral activation further; talked about ECT and patient appreciated postponing ECT decision until next week and right now just focusing on medication management. Patient had trouble sleeping; discussed options and she agreed to start doxepin 08/23 Patient said she did sleep better last night with doxepin. She remains depressed. She says that she is anxious to point of being incapacitated which is depressing; she says she just wants to sleep all day and that she does not want to be in the hospital. She says she feels like she has given up. Natural Resources Technician discussed again behavioral activation and patient said she understands this and will try to push herself to do so. She again says I am not doing that well... Patient again thought that perhaps Wellbutrin was causing her to shake however she again agreed to continue with Wellbutrin, persuaded by the fact that she had been on this dose in the past and done well and that she maybe misinterpreting her shaking. Due to excessive anxiety she agreed to start clonazepam during the day; discussed and patient said she will use a low-dose so as not to be too tired -patient has put in a 3 day notice and is ambivalent about whether not she will remain on the unit for treatment; ambivalent about ECT 08/24/24 - riding out side effects of added medication- pending dc on 3 day 08/27 08/26 Patient reports that she does not feel like she is doing well. She does acknowledge that her depression is little better and says that she has an appetite, sees herself eating more and has gained 5 lb; she is also brushing her teeth and attending to ADLs more regularly. She remains isolated staying in her room with much anxiety and feels anxiety is overall worse. She wonders if as the depression clears up a bit, it has uncovered more of her anxiety. Patient also says that she feels like she is shakey for past 3 days Patient very much does not like being on the unit however she said she realizes she is not ready to go home, that she feels awful and retracted her 3 day notice; patient was tearful and doing so, saying she very much wanted to be at home and is deeply saddened that she can not restart her therapy practice; she says this dampening her mood further Discussed medication management. Discussed possibility of serotonin syndrome due to shakey feeling as she is on Lexapro, low-dose doxepin and Wellbutrin which could give some contribution. -Patient agrees to come off Lexapro since there was never a strong feeling that this was helpful. -She also agreed to try low-dose Zyprexa to help with anxiety written depression -She agrees to remain on Wellbutrin and instead get back on Paxil as both Paxil and Wellbutrin were highlighted as medications that she had done well on. -She really wants to stay on doxepin because it has been helping with sleep; typewriter assembler agreed and will continue to monitor for serotonin syndrome (no hypertension, tachycardia; patient afebrile; although some tremor/shakiness, no hyperreflexia observed; no complaints of diarrhea or excessive salivation) 08/27 Patient continues to say that she is really bad though does also acknowledge that depression is little better and starting with Zyprexa, anxiety is a little better also. Patient says that she continues to have the shakes and demonstrates as she picks up a pitcher though at rest not observed by typewriter assembler. Discussed medications and patient would like doxepin did be discontinued worried that perhaps it is contributing to her shaky feeling. Slept well last night and feels that Zyprexa will be enough for insomnia. She likes the idea of being on Paxil and having Lexapro discontinued. Remains isolated and in her room despite discussion about behavioral activation -typewriter assembler agrees that it is prudent to hold off from ECT at this time and continue with medication management as patient is making incremental improvements 08/28 remains very depressed, isolates in bed; willing to get up and move when prompted. Increaed Paxil to 20mg; pt agrees -will lower clonazepam since sedating; dc AM zyprexa 08/30 Patient doing better today. She shower today for the 1st time in quite a while and attended a group. Patient up and walking out of her room with improved grooming. She agrees that depression and anxiety are both better and agrees with medication plan. Patient's sister present who discussed treatment plan and also agrees with holding off on ECT since patient seems to be improving on medications -1st day of any such improvement and patient will need to have several days of improved mood to determine that medications are effective 08/31 Patient remains overall better, agreeing that depression and anxiety are both better. Still feeling shaky the typewriter assembler notices it seems tremor is only apparent when she is picking something up. Patient is out of her room more often and though she still does not like being on the unit at all, feels that her attitude is overall better. She rates herself a 5 or 6/10, 10 being her regular self. Discussed again medication regimen which will leave as is however typewriter assembler will reach out to endocrine on Monday to discuss medication regimen and low TSH 09/01 remains overall brighter, with mood and anxiety improved. Patient has reported shaking this could be due to excess T3 Liothyronine; will discuss with endocrinology -patient asked about possible discharge and typewriter assembler agrees that she continues to improve and if remains so, will start discussing discharge planning 09/02 Patient feeling much better than she has and rates herself a 6/10, 10 being her normal self. Patient feels that anxiety and depression both remain improved. Patient for the 1st time is asking for discharge to go home later this week feeling that enough has been accomplished, that she is doing overall better and ready to continue treatment as an outpatient. Natural Resources Technician discussed thyroid medication/symptoms with patient after having reviewed thyroid medication with film numberer Dr. Rojas. Dr. Medina recommends discontinuing Liothyronine as TSH is too low indicating excessive T3; this may also alleviate patient's experience of shakiness. Dr. Medina also agrees with having lowered Synthroid. Recommends monitoring free T4 every other day for couple days and then have outpatient PCP follow-up with TSH which will take 4 weeks to adjust. -patient asks to have discussion with [id number] regarding discharge but is hoping she can go this week. Natural Resources Technician agrees Plan: CV, 15 minute checks DC Lexapro Continue Paxil 30 mg daily Continue Zyprexa 2.5 mg qhs. for excessive anxiety mixed with depression Continue Wellbutrin to XL 150 mg DC doxepin 10 mg q.h.s. clonazepam 0.25 mg 0 900, 1700 for excessive anxiety Consider MRI-brain (per neuro; will wait for EEG results) EEG recs per neuro Collateral contacts Decrease Levothyroxine to 37.5 mg daily DISCONTINUE Liothyronine to 2.5 mg daily due to excessively low TSH per film numberer Dr. Medina Med trials when diagnostics are completed MOCA today 24 (due to depression??) Patient educated on: diagnosis, medication risk/benefits, therapeutic strategies and medical condition Informed Consent: understands Reason for continued inpatient stay Substantial Risk for: stable for discharge Time Spent With Patient Time: Total time managing care of this patient today ____ minutes.
[2024-09-02] MEDS: traZODone HCL 100 MG TABLET PO (20:42)
[2024-09-02] MEDS: OLANZapine 2.5 MG TABLET PO (20:42)
[2024-09-03] MEDS: Levothyroxine Sodium 25 MCG TABLET 37.5 MCG PO (06:27)
[2024-09-03 08:00] VITALS: BP 94/55; PULSE 63; RESP 16; TEMP 36.2; O2SAT 97
[2024-09-03] MEDS: Cholecalciferol (Vitamin D3) 25 MCG TABLET PO (08:21)
[2024-09-03] MEDS: buPROPion HCl XL 150 MG TAB.ER.24H PO (08:21)
[2024-09-03] MEDS: PARoxetine HCL 30 MG TABLET PO (08:21)
--- NOTE | 2024-09-03 12:53 | HO.PSYCHPN ---
Subjective Subjective Date of Service: 09/03/24 Reason For Visit: Depression, Rule out MCI Interim History: met with patient; discussed with team pt reports feeling much better; she tells typewriter repairer i showered, did my laundry eating, walking the esposito, making phone calls. She says shakes are less already. She says she feels ready to go home and agrees with this monday after talking with her sister. Patient with noticeably brighter affect. Discussed again Endo recs, monitoring Free T4/TSH and she understands to f/u w/ PCP for TSH in 4 weeks. Mental Status Exam Mental Status Exam Narrative: Pt is alert and oriented; behavior is cooperative, friendly and calm; patient is not in distress; dressed in casual attire with unkempt hair but adequate hygiene; mood is described as good and affect congruent; eye contact appropriate; Speech is normal rate, volume and prosody and not pressured; no psychomotor agitation/retardation present; thought process is organized and goal directed; Thought content is on tx; otherwise pertinent to relevant topics and without any delusional content, paranoid ideations or grandiosity; denies any SI/HI. There is no evidence of perceptual disturbance. Patients insight and judgment much improved, fair Diagnostics Vital Signs (24Hr): Vital Signs - 24 hr 09/03/24 08:00 Temperature 97.1 F Pulse Rate 63 Respiratory Rate 16 Blood Pressure 94/55 L Pulse Oximetry 97 Oxygen Delivery Method Room Air BMI result Body Mass Index 22.1 Labs 08/12/24 12:10 08/12/24 12:10 Imaging Radiology Impressions: ITS Impressions Brain MRI 08/13/24 12:40 IMPRESSION: 1. No acute intracranial abnormalities. 2. Chronic microangiopathy. Electronically signed by: Dina Benton MD 08/13/2024 02:03 PM SEE Medications Medications Current Medications Acetaminophen (Acetaminophen 325 Mg Tablet) 650 mg PO Q6H PRN PRN Reason: Headache/Pain Mild Scale (1-3) Al Hydroxide/Mg Hydroxide (Magnesium Hydrox/Alum Hydrox 30 Ml Oral.Susp) 30 ml PO Q6H PRN PRN Reason: Heartburn/Nausea Bupropion HCl (Bupropion Hcl Xl 150 Mg Tab.Er.24h) 150 mg PO DAILY ESTEBAN Last Admin: 09/03/24 08:21 Dose: 150 mg Clonazepam (Clonazepam 0.5 Mg Tablet) 0.25 mg PO BID PRN PRN Reason: panic type anxiety Levothyroxine Sodium (Levothyroxine Sodium 25 Mcg Tablet) 37.5 mcg PO DAILY@0600 PENDING SALE TO [facility] Last Admin: 09/03/24 06:27 Dose: 37.5 mcg Magnesium Hydroxide (Milk Of Magnesia 30 Ml Oral.Susp) 30 ml PO DAILY PRN PRN Reason: Constipation Last Admin: 08/24/24 08:58 Dose: 30 ml Nicotine Polacrilex (Nicotine Polacrilex 2 Mg Gum) 4 mg BUCCAL Q2H PRN PRN Reason: Nicotine Cravings Olanzapine (Olanzapine 2.5 Mg Tablet) 2.5 mg PO BEDTIME PENDING SALE TO [facility] Last Admin: 09/02/24 20:42 Dose: 2.5 mg Paroxetine HCl (Paroxetine Hcl 30 Mg Tablet) 30 mg PO DAILY PENDING SALE TO [facility] Last Admin: 09/03/24 08:21 Dose: 30 mg Polyethylene Glycol (Polyethylene Glycol 3350 17 Gm Powd.Pack) 17 gm PO DAILY PRN PRN Reason: Constipation Trazodone HCl (Trazodone Hcl 100 Mg Tablet) 100 mg PO BEDTIME PENDING SALE TO [facility] Last Admin: 09/02/24 20:42 Dose: 100 mg Vitamin D (Cholecalciferol (Vitamin D3) 25 Mcg Tablet) 25 mcg PO DAILY PENDING SALE TO [facility] Last Admin: 09/03/24 08:21 Dose: 25 mcg Allergies Allergies Allergy/AdvReac Type Severity Reaction Status Date / Time No Known Allergies Allergy Verified 08/12/24 11:51 Assessment & Plan Assessment & Plan (1) Recurrent major depression: Status: Acute Code(s): F33.9 - Major depressive disorder, recurrent, unspecified (2) Adult failure to thrive: Status: Acute Code(s): R62.7 - Adult failure to thrive Plan Recurrent Major Depression, Failure to Thrive, Rule out MCI. 08/16: Continue plan of care ?ECT consult. ?Mood stabilizer trial 08/17: Continue Wellbutrin ?MAOI trial Declines ECT consult due to her concern about her memory 08/19: Increase Wellbutrin to 75 mg a.m. Family meeting 08/20. 08/20: continue current tx plan. 08/20 typewriter repairer, (Dr. Aguayo) also met with patient, sister and [id number] to discuss history of depression, medication management and possible ECT treatment. Patient reports that this is the worst episode of depression she has ever had including her previous hospitalization about a year and a half ago. After that last admission, Patient reports she was started on Paxil and Strattera and did quite well for the next 9-10 months, which family agrees. She is not sure why, but depression started to creep back in which continued until it became severe (no ADLs, not leaving house, family bringing her food and all of the other neurovegetative symptoms of depression other than SI). Patient reports she also did well on Wellbutrin XL 150 mg and Lexapro. 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 Discussed ECT, risks/potential side effects versus potential benefit. Garbage Truck Dispatcher agrees that it is prudent to 1st pursue medication management at this time while keeping ECT as an option, with which patient fully agrees. -switch Wellbutrin to XL 150 mg -will continue Lexapro 20 mg; QTC WNL and patient has no history of any cardiac issues so it remains an option to increase -will also consider restarting Strattera which patient said significantly helped her focus her thinking; Adderall/Ritalin also options -it is also possible to potentially combine Wellbutrin and Paxil which remains an option if patient remains only partially treated 08/21/24 Patient still quite depressed but says no problem with wellbutrin and felt it was noteworthy that today she took a shower today which helped her feel better; patient agreed with behavioral activation Discussed insomnia and trazodone seems to work well enough (mirtazapine cause excessive sleepiness the next day) discussed panic attack and she agrees it might have been due to excessive worries rather than Wellbutrin (which she has tolerated for years in the past); just prior to panic attack, she was perseverating on never getting better, losing her therapy practice, the stigma of ECT defining her as a mental patient. Patient agreed to continue with Wellbutrin. Talked about behavioral activation further; talked about ECT and patient appreciated postponing ECT decision until next week and right now just focusing on medication management. Patient had trouble sleeping; discussed options and she agreed to start doxepin -Patient discussed challenges of depression, worried about losing her career as well as her identity. Patient shared about history, regrets, conflicted feelings over past decisions; Patient feels overwhelmed with being on a psychiatric unit though she also understands the need to treat her depression at this time 2 discussed panic attack and she agrees it might have been due to excessive worries rather than Wellbutrin (which she has tolerated for years in the past); just prior to panic attack, she was perseverating on never getting better, losing her therapy practice, the stigma of ECT defining her as a mental patient. Patient agreed to continue with Wellbutrin. Talked about behavioral activation further; talked about ECT and patient appreciated postponing ECT decision until next week and right now just focusing on medication management. Patient had trouble sleeping; discussed options and she agreed to start doxepin 08/23 Patient said she did sleep better last night with doxepin. She remains depressed. She says that she is anxious to point of being incapacitated which is depressing; she says she just wants to sleep all day and that she does not want to be in the hospital. She says she feels like she has given up. Garbage Truck Dispatcher discussed again behavioral activation and patient said she understands this and will try to push herself to do so. She again says I am not doing that well... Patient again thought that perhaps Wellbutrin was causing her to shake however she again agreed to continue with Wellbutrin, persuaded by the fact that she had been on this dose in the past and done well and that she maybe misinterpreting her shaking. Due to excessive anxiety she agreed to start clonazepam during the day; discussed and patient said she will use a low-dose so as not to be too tired -patient has put in a 3 day notice and is ambivalent about whether not she will remain on the unit for treatment; ambivalent about ECT 08/24/24 - riding out side effects of added medication- pending dc on 3 day 08/27 08/26 Patient reports that she does not feel like she is doing well. She does acknowledge that her depression is little better and says that she has an appetite, sees herself eating more and has gained 5 lb; she is also brushing her teeth and attending to ADLs more regularly. She remains isolated staying in her room with much anxiety and feels anxiety is overall worse. She wonders if as the depression clears up a bit, it has uncovered more of her anxiety. Patient also says that she feels like she is shakey for past 3 days Patient very much does not like being on the unit however she said she realizes she is not ready to go home, that she feels awful and retracted her 3 day notice; patient was tearful and doing so, saying she very much wanted to be at home and is deeply saddened that she can not restart her therapy practice; she says this dampening her mood further Discussed medication management. Discussed possibility of serotonin syndrome due to shakey feeling as she is on Lexapro, low-dose doxepin and Wellbutrin which could give some contribution. -Patient agrees to come off Lexapro since there was never a strong feeling that this was helpful. -She also agreed to try low-dose Zyprexa to help with anxiety written depression -She agrees to remain on Wellbutrin and instead get back on Paxil as both Paxil and Wellbutrin were highlighted as medications that she had done well on. -She really wants to stay on doxepin because it has been helping with sleep; typewriter repairer agreed and will continue to monitor for serotonin syndrome (no hypertension, tachycardia; patient afebrile; although some tremor/shakiness, no hyperreflexia observed; no complaints of diarrhea or excessive salivation) 08/27 Patient continues to say that she is really bad though does also acknowledge that depression is little better and starting with Zyprexa, anxiety is a little better also. Patient says that she continues to have the shakes and demonstrates as she picks up a pitcher though at rest not observed by typewriter repairer. Discussed medications and patient would like doxepin did be discontinued worried that perhaps it is contributing to her shaky feeling. Slept well last night and feels that Zyprexa will be enough for insomnia. She likes the idea of being on Paxil and having Lexapro discontinued. Remains isolated and in her room despite discussion about behavioral activation -typewriter repairer agrees that it is prudent to hold off from ECT at this time and continue with medication management as patient is making incremental improvements 08/28 remains very depressed, isolates in bed; willing to get up and move when prompted. Increaed Paxil to 20mg; pt agrees -will lower clonazepam since sedating; dc AM zyprexa 08/30 Patient doing better today. She shower today for the 1st time in quite a while and attended a group. Patient up and walking out of her room with improved grooming. She agrees that depression and anxiety are both better and agrees with medication plan. Patient's sister present who discussed treatment plan and also agrees with holding off on ECT since patient seems to be improving on medications -1st day of any such improvement and patient will need to have several days of improved mood to determine that medications are effective 08/31 Patient remains overall better, agreeing that depression and anxiety are both better. Still feeling shaky the typewriter repairer notices it seems tremor is only apparent when she is picking something up. Patient is out of her room more often and though she still does not like being on the unit at all, feels that her attitude is overall better. She rates herself a 5 or 6/10, 10 being her regular self. Discussed again medication regimen which will leave as is however typewriter repairer will reach out to endocrine on Monday to discuss medication regimen and low TSH 09/01 remains overall brighter, with mood and anxiety improved. Patient has reported shaking this could be due to excess T3 Liothyronine; will discuss with endocrinology -patient asked about possible discharge and typewriter repairer agrees that she continues to improve and if remains so, will start discussing discharge planning 09/02 Patient feeling much better than she has and rates herself a 6/10, 10 being her normal self. Patient feels that anxiety and depression both remain improved. Patient for the 1st time is asking for discharge to go home later this week feeling that enough has been accomplished, that she is doing overall better and ready to continue treatment as an outpatient. Garbage Truck Dispatcher discussed thyroid medication/symptoms with patient after having reviewed thyroid medication with engineering consultant Dr. Rojas. Dr. Medina recommends discontinuing Liothyronine as TSH is too low indicating excessive T3; this may also alleviate patient's experience of shakiness. Dr. Medina also agrees with having lowered Synthroid. Recommends monitoring free T4 every other day for couple days and then have outpatient PCP follow-up with TSH which will take 4 weeks to adjust. -patient asks to have discussion with sister/[id number] regarding discharge but is hoping she can go this week. Garbage Truck Dispatcher agrees 09/03 pt reports feeling much better; she tells typewriter repairer i showered, did my laundry eating, walking the esposito, making phone calls. She says shakes are less already. She says she feels ready to go home and agrees with this monday after talking with her sister. Patient with noticeably brighter affect. -Discussed again Endo recs, monitoring Free T4/TSH and she understands to f/u w/ PCP for TSH in 4 weeks. -typewriter repairer discussed case with patient's family who agrees that she is doing much better and appropriate to return home with plans to DC this Monday Plan: CV, 15 minute checks DC Lexapro Continue Paxil 30 mg daily Continue Zyprexa 2.5 mg qhs. for excessive anxiety mixed with depression Continue Wellbutrin to XL 150 mg DC doxepin 10 mg q.h.s. clonazepam 0.25 mg 0 900, 1700 for excessive anxiety Consider MRI-brain (per neuro; will wait for EEG results) EEG recs per neuro Collateral contacts Decrease Levothyroxine to 37.5 mg daily DISCONTINUE Liothyronine to 2.5 mg daily due to excessively low TSH per engineering consultant Dr. Medina Med trials when diagnostics are completed MOCA today 24 (due to depression??) Patient educated on: diagnosis, medication risk/benefits and therapeutic strategies Informed Consent: understands Reason for continued inpatient stay Substantial Risk for: stable for discharge Time Spent With Patient Time: Total time managing care of this patient today ____ minutes.
[2024-09-03] MEDS: polyethylene glycoL 3350 17 GM POWD.PACK PO (19:25)
[2024-09-03] MEDS: Milk of Magnesia 30 ML ORAL.SUSP PO (19:25)
[2024-09-03] MEDS: OLANZapine 2.5 MG TABLET PO (21:02)
[2024-09-03] MEDS: traZODone HCL 100 MG TABLET PO (21:02)
[2024-09-04] MEDS: Levothyroxine Sodium 25 MCG TABLET 37.5 MCG PO (06:27)
[2024-09-04] MEDS: buPROPion HCl XL 150 MG TAB.ER.24H PO (08:53)
[2024-09-04] MEDS: Cholecalciferol (Vitamin D3) 25 MCG TABLET PO (08:53)
[2024-09-04] MEDS: PARoxetine HCL 30 MG TABLET PO (08:53)
[2024-09-04 08:54] VITALS: BP 98/61; PULSE 74; RESP 16; TEMP 36.6; O2SAT 97
[2024-09-04] MEDS: polyethylene glycoL 3350 17 GM POWD.PACK PO (08:54)
[2024-09-04 09:10] LABS: Free T4 (Free Thyroxine) 0.82 ng/dL (0.71-1.85)
--- NOTE | 2024-09-04 19:11 | HO.PSYCHPN ---
Subjective Subjective Date of Service: 09/04/24 Reason For Visit: Depression, Rule out MCI Interim History: With patient; discussed with team Patient this morning had a bout of anxiety about going home, feeling like repairing her life is a daunting task. She started having worries about medications and how they would make her feel. Patient however was able to work through this and anxiety calmed down. She still intermittently feels overwhelmed with the idea of getting back to her regular life however she also remains feeling much better and safe and ready to go home. Discussed how this type of anxiety is expected and talked through some of the things that will be difficult for her when she returns. Patient continued to feel capable of navigating. Continued to discuss medication management. Patient showed her hands that are less shaky. Mental Status Exam Mental Status Exam Narrative: Pt is alert and oriented; behavior is cooperative, friendly and calm; patient is not in distress; dressed in casual attire with unkempt hair but adequate hygiene; mood is described as anxious and affect congruent, some tears; eye contact appropriate; Speech is normal rate, volume and prosody and not pressured; no psychomotor agitation/retardation present; thought process is organized and goal directed; Thought content is on tx; otherwise pertinent to relevant topics and without any delusional content, paranoid ideations or grandiosity; denies any SI/HI. There is no evidence of perceptual disturbance. Patients insight and judgment much improved, fair Diagnostics Vital Signs (24Hr): Vital Signs - 24 hr 09/04/24 08:54 Temperature 97.9 F Pulse Rate 74 Respiratory Rate 16 Blood Pressure 98/61 Pulse Oximetry 97 Oxygen Delivery Method Room Air BMI result Body Mass Index 22.1 Labs 08/12/24 12:10 08/12/24 12:10 Labs: Laboratory Results - last 48 hr 09/04/24 09/04/24 07:52 08:30 Hold Purple Top SEE NOTE Free T4 0.82 Imaging Radiology Impressions: ITS Impressions Brain MRI 08/13/24 12:40 IMPRESSION: 1. No acute intracranial abnormalities. 2. Chronic microangiopathy. Electronically signed by: Dina Benton MD 08/13/2024 02:03 PM [facility] [place] Medications Medications Current Medications Acetaminophen (Acetaminophen 325 Mg Tablet) 650 mg PO Q6H PRN PRN Reason: Headache/Pain Mild Scale (1-3) Al Hydroxide/Mg Hydroxide (Magnesium Hydrox/Alum Hydrox 30 Ml Oral.Susp) 30 ml PO Q6H PRN PRN Reason: Heartburn/Nausea Bupropion HCl (Bupropion Hcl Xl 150 Mg Tab.Er.24h) 150 mg PO DAILY [facility] Last Admin: 09/04/24 08:53 Dose: 150 mg Clonazepam (Clonazepam 0.5 Mg Tablet) 0.25 mg PO BID PRN PRN Reason: panic type anxiety Levothyroxine Sodium (Levothyroxine Sodium 25 Mcg Tablet) 37.5 mcg PO DAILY@0600 [facility] Last Admin: 09/04/24 06:27 Dose: 37.5 mcg Magnesium Hydroxide (Milk Of Magnesia 30 Ml Oral.Susp) 30 ml PO DAILY PRN PRN Reason: Constipation Last Admin: 09/03/24 19:25 Dose: 30 ml Nicotine Polacrilex (Nicotine Polacrilex 2 Mg Gum) 4 mg BUCCAL Q2H PRN PRN Reason: Nicotine Cravings Olanzapine (Olanzapine 2.5 Mg Tablet) 2.5 mg PO BEDTIME [facility] Last Admin: 09/03/24 21:02 Dose: 2.5 mg Paroxetine HCl (Paroxetine Hcl 30 Mg Tablet) 30 mg PO DAILY [facility] Last Admin: 09/04/24 08:53 Dose: 30 mg Polyethylene Glycol (Polyethylene Glycol 3350 17 Gm Powd.Pack) 17 gm PO DAILY PRN PRN Reason: Constipation Last Admin: 09/04/24 08:54 Dose: 17 gm Trazodone HCl (Trazodone Hcl 100 Mg Tablet) 100 mg PO BEDTIME [facility] Last Admin: 09/03/24 21:02 Dose: 100 mg Vitamin D (Cholecalciferol (Vitamin D3) 25 Mcg Tablet) 25 mcg PO DAILY [facility] Last Admin: 09/04/24 08:53 Dose: 25 mcg Allergies Allergies Allergy/AdvReac Type Severity Reaction Status Date / Time No Known Allergies Allergy Verified 08/12/24 11:51 Assessment & Plan Assessment & Plan (1) Recurrent major depression: Status: Acute Code(s): F33.9 - Major depressive disorder, recurrent, unspecified (2) Adult failure to thrive: Status: Acute Code(s): R62.7 - Adult failure to thrive Plan Recurrent Major Depression, Failure to Thrive, Rule out MCI. 08/16: Continue plan of care ?ECT consult. ?Mood stabilizer trial 08/17: Continue Wellbutrin ?MAOI trial Declines ECT consult due to her concern about her memory 08/19: Increase Wellbutrin to 75 mg a.m. Family meeting 08/20. 08/20: continue current tx plan. 08/20 magnetic tape typewriter operator, (Dr. Aguayo) also met with patient, sister and [id number] to discuss history of depression, medication management and possible ECT treatment. Patient reports that this is the worst episode of depression she has ever had including her previous hospitalization about a year and a half ago. After that last admission, Patient reports she was started on Paxil and Strattera and did quite well for the next 9-10 months, which family agrees. She is not sure why, but depression started to creep back in which continued until it became severe (no ADLs, not leaving house, family bringing her food and all of the other neurovegetative symptoms of depression other than SI). Patient reports she also did well on Wellbutrin XL 150 mg and Lexapro. 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 Discussed ECT, risks/potential side effects versus potential benefit. Manager [employer] agrees that it is prudent to 1st pursue medication management at this time while keeping ECT as an option, with which patient fully agrees. -switch Wellbutrin to XL 150 mg -will continue Lexapro 20 mg; QTC WNL and patient has no history of any cardiac issues so it remains an option to increase -will also consider restarting Strattera which patient said significantly helped her focus her thinking; Adderall/Ritalin also options -it is also possible to potentially combine Wellbutrin and Paxil which remains an option if patient remains only partially treated 08/21/24 Patient still quite depressed but says no problem with wellbutrin and felt it was noteworthy that today she took a shower today which helped her feel better; patient agreed with behavioral activation Discussed insomnia and trazodone seems to work well enough (mirtazapine cause excessive sleepiness the next day) discussed panic attack and she agrees it might have been due to excessive worries rather than Wellbutrin (which she has tolerated for years in the past); just prior to panic attack, she was perseverating on never getting better, losing her therapy practice, the stigma of ECT defining her as a mental patient. Patient agreed to continue with Wellbutrin. Talked about behavioral activation further; talked about ECT and patient appreciated postponing ECT decision until next week and right now just focusing on medication management. Patient had trouble sleeping; discussed options and she agreed to start doxepin -Patient discussed challenges of depression, worried about losing her career as well as her identity. Patient shared about history, regrets, conflicted feelings over past decisions; Patient feels overwhelmed with being on a psychiatric unit though she also understands the need to treat her depression at this time 12 discussed panic attack and she agrees it might have been due to excessive worries rather than Wellbutrin (which she has tolerated for years in the past); just prior to panic attack, she was perseverating on never getting better, losing her therapy practice, the stigma of ECT defining her as a mental patient. Patient agreed to continue with Wellbutrin. Talked about behavioral activation further; talked about ECT and patient appreciated postponing ECT decision until next week and right now just focusing on medication management. Patient had trouble sleeping; discussed options and she agreed to start doxepin 08/23 Patient said she did sleep better last night with doxepin. She remains depressed. She says that she is anxious to point of being incapacitated which is depressing; she says she just wants to sleep all day and that she does not want to be in the hospital. She says she feels like she has given up. Manager [employer] discussed again behavioral activation and patient said she understands this and will try to push herself to do so. She again says I am not doing that well... Patient again thought that perhaps Wellbutrin was causing her to shake however she again agreed to continue with Wellbutrin, persuaded by the fact that she had been on this dose in the past and done well and that she maybe misinterpreting her shaking. Due to excessive anxiety she agreed to start clonazepam during the day; discussed and patient said she will use a low-dose so as not to be too tired -patient has put in a 3 day notice and is ambivalent about whether not she will remain on the unit for treatment; ambivalent about ECT 08/24/24 - riding out side effects of added medication- pending dc on 3 day 08/27 08/26 Patient reports that she does not feel like she is doing well. She does acknowledge that her depression is little better and says that she has an appetite, sees herself eating more and has gained 5 lb; she is also brushing her teeth and attending to ADLs more regularly. She remains isolated staying in her room with much anxiety and feels anxiety is overall worse. She wonders if as the depression clears up a bit, it has uncovered more of her anxiety. Patient also says that she feels like she is shakey for past 3 days Patient very much does not like being on the unit however she said she realizes she is not ready to go home, that she feels awful and retracted her 3 day notice; patient was tearful and doing so, saying she very much wanted to be at home and is deeply saddened that she can not restart her therapy practice; she says this dampening her mood further Discussed medication management. Discussed possibility of serotonin syndrome due to shakey feeling as she is on Lexapro, low-dose doxepin and Wellbutrin which could give some contribution. -Patient agrees to come off Lexapro since there was never a strong feeling that this was helpful. -She also agreed to try low-dose Zyprexa to help with anxiety written depression -She agrees to remain on Wellbutrin and instead get back on Paxil as both Paxil and Wellbutrin were highlighted as medications that she had done well on. -She really wants to stay on doxepin because it has been helping with sleep; magnetic tape typewriter operator agreed and will continue to monitor for serotonin syndrome (no hypertension, tachycardia; patient afebrile; although some tremor/shakiness, no hyperreflexia observed; no complaints of diarrhea or excessive salivation) 08/27 Patient continues to say that she is really bad though does also acknowledge that depression is little better and starting with Zyprexa, anxiety is a little better also. Patient says that she continues to have the shakes and demonstrates as she picks up a pitcher though at rest not observed by magnetic tape typewriter operator. Discussed medications and patient would like doxepin did be discontinued worried that perhaps it is contributing to her shaky feeling. Slept well last night and feels that Zyprexa will be enough for insomnia. She likes the idea of being on Paxil and having Lexapro discontinued. Remains isolated and in her room despite discussion about behavioral activation -magnetic tape typewriter operator agrees that it is prudent to hold off from ECT at this time and continue with medication management as patient is making incremental improvements 08/28 remains very depressed, isolates in bed; willing to get up and move when prompted. Increaed Paxil to 20mg; pt agrees -will lower clonazepam since sedating; dc AM zyprexa 08/30 Patient doing better today. She shower today for the 1st time in quite a while and attended a group. Patient up and walking out of her room with improved grooming. She agrees that depression and anxiety are both better and agrees with medication plan. Patient's sister present who discussed treatment plan and also agrees with holding off on ECT since patient seems to be improving on medications -1st day of any such improvement and patient will need to have several days of improved mood to determine that medications are effective 08/31 Patient remains overall better, agreeing that depression and anxiety are both better. Still feeling shaky the magnetic tape typewriter operator notices it seems tremor is only apparent when she is picking something up. Patient is out of her room more often and though she still does not like being on the unit at all, feels that her attitude is overall better. She rates herself a 5 or 6/10, 10 being her regular self. Discussed again medication regimen which will leave as is however magnetic tape typewriter operator will reach out to endocrine on Monday to discuss medication regimen and low TSH 09/01 remains overall brighter, with mood and anxiety improved. Patient has reported shaking this could be due to excess T3 Liothyronine; will discuss with endocrinology -patient asked about possible discharge and magnetic tape typewriter operator agrees that she continues to improve and if remains so, will start discussing discharge planning 09/02 Patient feeling much better than she has and rates herself a 6/10, 10 being her normal self. Patient feels that anxiety and depression both remain improved. Patient for the 1st time is asking for discharge to go home later this week feeling that enough has been accomplished, that she is doing overall better and ready to continue treatment as an outpatient. Manager [employer] discussed thyroid medication/symptoms with patient after having reviewed thyroid medication with supervisor motor vehicle assembly Dr. Rojas. Dr. Medina recommends discontinuing Liothyronine as TSH is too low indicating excessive T3; this may also alleviate patient's experience of shakiness. Dr. Medina also agrees with having lowered Synthroid. Recommends monitoring free T4 every other day for couple days and then have outpatient PCP follow-up with TSH which will take 4 weeks to adjust. -patient asks to have discussion with sister/[id number] regarding discharge but is hoping she can go this week. Manager [employer] agrees 09/03 pt reports feeling much better; she tells magnetic tape typewriter operator i showered, did my laundry eating, walking the esposito, making phone calls. She says shakes are less already. She says she feels ready to go home and agrees with this monday after talking with her sister. Patient with noticeably brighter affect. -Discussed again Endo recs, monitoring Free T4/TSH and she understands to f/u w/ PCP for TSH in 4 weeks. -magnetic tape typewriter operator discussed case with patient's family who agrees that she is doing much better and appropriate to return home with plans to DC this Saturday 09/02 Patient this morning had a bout of anxiety about going home, feeling like repairing her life is a daunting task. She started having worries about medications and how they would make her feel. Patient however was able to work through this and anxiety calmed down. She still intermittently feels overwhelmed with the idea of getting back to her regular life however she also remains feeling much better and safe and ready to go home. Discussed how this type of anxiety is expected and talked through some of the things that will be difficult for her when she returns. Patient continued to feel capable of navigating. Continued to discuss medication management. Patient showed her hands that are less shaky. Free T4: 1.12 -> 0.82 Plan: CV, 15 minute checks DC Lexapro Continue Paxil 30 mg daily Continue Zyprexa 2.5 mg qhs. for excessive anxiety mixed with depression Continue Wellbutrin to XL 150 mg DC doxepin 10 mg q.h.s. clonazepam 0.25 mg 0 900, 1700 for excessive anxiety Consider MRI-brain (per neuro; will wait for EEG results) EEG recs per neuro Collateral contacts Decrease Levothyroxine to 37.5 mg daily DISCONTINUE Liothyronine to 2.5 mg daily due to excessively low TSH per supervisor motor vehicle assembly Dr. Medina Med trials when diagnostics are completed MOCA today 24 (due to depression??) Patient educated on: diagnosis, medication risk/benefits and medical condition Informed Consent: understands Reason for continued inpatient stay Substantial Risk for: stable for discharge Time Spent With Patient Time: Total time managing care of this patient today ____ minutes.
[2024-09-04 20:00] VITALS: BP 100/70; PULSE 84; RESP 18; TEMP 36.6; O2SAT 97
[2024-09-04] MEDS: traZODone HCL 100 MG TABLET PO (21:58)
[2024-09-04] MEDS: OLANZapine 2.5 MG TABLET PO (21:58)
[2024-09-05] MEDS: clonazePAM 0.5 MG TABLET 0.25 MG PO ×2 (01:06→21:04)
[2024-09-05] MEDS: Levothyroxine Sodium 25 MCG TABLET 37.5 MCG PO (06:35)
[2024-09-05 07:00] VITALS: BMI 22.7
[2024-09-05] MEDS: buPROPion HCl XL 150 MG TAB.ER.24H PO (08:34)
[2024-09-05] MEDS: PARoxetine HCL 30 MG TABLET PO (08:34)
[2024-09-05] MEDS: Cholecalciferol (Vitamin D3) 25 MCG TABLET PO (08:34)
[2024-09-05] MEDS: polyethylene glycoL 3350 17 GM POWD.PACK PO (08:36)
--- NOTE | 2024-09-05 13:53 | HO.PSYCHPN ---
Subjective Subjective Date of Service: 09/05/24 Reason For Visit: Depression, Rule out MCI Subjective Notes: Conditional Voluntary Interim History: Laying in bed. Pt reports feeling exhausted from all the meds I'm taking ; she reports some anxiety about returning home. States she is eating and sleeping fine . continue current tx plan. Medication Compliance: Yes Side effects from medications: No Mental Status Exam Mental Status Exam Patient Appearance: Well Grooomed Patient Orientation: Person, Place, Time and Situation Level of Consciousness: Awake and Alert Patient Behavior: Appropriate and Cooperative Mood Description: Anxious Affect Description: Anxious Ability to Follow Directions: Good Speech Pattern: Clear Memory Description: Intact Hallucinations: None Delusions: Not Present Thought Process: Intact and Goal Oriented Thought Content: positive for Intact Judgement: Fair Diagnostics Vital Signs (24Hr): Vital Signs - 24 hr 09/04/24 20:00 Temperature 98 F Pulse Rate 84 Respiratory Rate 18 Blood Pressure 100/70 Pulse Oximetry 97 Oxygen Delivery Method Room Air BMI result Body Mass Index 22.7 Labs 08/12/24 12:10 08/12/24 12:10 Labs: Laboratory Results - last 48 hr 09/04/24 09/04/24 07:52 08:30 Hold Purple Top SEE NOTE Free T4 0.82 Imaging Radiology Impressions: ITS Impressions Brain MRI 08/13/24 12:40 IMPRESSION: 1. No acute intracranial abnormalities. 2. Chronic microangiopathy. Electronically signed by: Dina Benton MD 08/13/2024 02:03 PM [facility] [place] Medications Medications Current Medications Acetaminophen (Acetaminophen 325 Mg Tablet) 650 mg PO Q6H PRN PRN Reason: Headache/Pain Mild Scale (1-3) Al Hydroxide/Mg Hydroxide (Magnesium Hydrox/Alum Hydrox 30 Ml Oral.Susp) 30 ml PO Q6H PRN PRN Reason: Heartburn/Nausea Bupropion HCl (Bupropion Hcl Xl 150 Mg Tab.Er.24h) 150 mg PO DAILY PENDING SALE TO [facility] Last Admin: 09/05/24 08:34 Dose: 150 mg Clonazepam (Clonazepam 0.5 Mg Tablet) 0.25 mg PO BID PRN PRN Reason: panic type anxiety Last Admin: 09/05/24 01:06 Dose: 0.25 mg Levothyroxine Sodium (Levothyroxine Sodium 25 Mcg Tablet) 37.5 mcg PO DAILY@0600 PENDING SALE TO [facility] Last Admin: 09/05/24 06:35 Dose: 37.5 mcg Magnesium Hydroxide (Milk Of Magnesia 30 Ml Oral.Susp) 30 ml PO DAILY PRN PRN Reason: Constipation Last Admin: 09/03/24 19:25 Dose: 30 ml Nicotine Polacrilex (Nicotine Polacrilex 2 Mg Gum) 4 mg BUCCAL Q2H PRN PRN Reason: Nicotine Cravings Olanzapine (Olanzapine 2.5 Mg Tablet) 2.5 mg PO BEDTIME PENDING SALE TO [facility] Last Admin: 09/04/24 21:58 Dose: 2.5 mg Paroxetine HCl (Paroxetine Hcl 30 Mg Tablet) 30 mg PO DAILY PENDING SALE TO [facility] Last Admin: 09/05/24 08:34 Dose: 30 mg Polyethylene Glycol (Polyethylene Glycol 3350 17 Gm Powd.Pack) 17 gm PO DAILY PRN PRN Reason: Constipation Last Admin: 09/05/24 08:36 Dose: 17 gm Trazodone HCl (Trazodone Hcl 100 Mg Tablet) 100 mg PO BEDTIME PENDING SALE TO [facility] Last Admin: 09/04/24 21:58 Dose: 100 mg Vitamin D (Cholecalciferol (Vitamin D3) 25 Mcg Tablet) 25 mcg PO DAILY PENDING SALE TO [facility] Last Admin: 09/05/24 08:34 Dose: 25 mcg Allergies Allergies Allergy/AdvReac Type Severity Reaction Status Date / Time No Known Allergies Allergy Verified 08/12/24 11:51 Assessment & Plan Assessment & Plan (1) Recurrent major depression: Status: Acute Code(s): F33.9 - Major depressive disorder, recurrent, unspecified (2) Adult failure to thrive: Status: Acute Code(s): R62.7 - Adult failure to thrive Plan Recurrent Major Depression, Failure to Thrive, Rule out MCI. 08/16: Continue plan of care ?ECT consult. ?Mood stabilizer trial 08/17: Continue Wellbutrin ?MAOI trial Declines ECT consult due to her concern about her memory 08/19: Increase Wellbutrin to 75 mg a.m. Family meeting 08/20. 08/20: continue current tx plan. 08/20 hand sign writer, (Dr. Aguayo) also met with patient, sister and [id number] to discuss history of depression, medication management and possible ECT treatment. Patient reports that this is the worst episode of depression she has ever had including her previous hospitalization about a year and a half ago. After that last admission, Patient reports she was started on Paxil and Strattera and did quite well for the next 9-10 months, which family agrees. She is not sure why, but depression started to creep back in which continued until it became severe (no ADLs, not leaving house, family bringing her food and all of the other neurovegetative symptoms of depression other than SI). Patient reports she also did well on Wellbutrin XL 150 mg and Lexapro. 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 Discussed ECT, risks/potential side effects versus potential benefit. District Claims Manager agrees that it is prudent to 1st pursue medication management at this time while keeping ECT as an option, with which patient fully agrees. -switch Wellbutrin to XL 150 mg -will continue Lexapro 20 mg; QTC WNL and patient has no history of any cardiac issues so it remains an option to increase -will also consider restarting Strattera which patient said significantly helped her focus her thinking; Adderall/Ritalin also options -it is also possible to potentially combine Wellbutrin and Paxil which remains an option if patient remains only partially treated 08/21/24 Patient still quite depressed but says no problem with wellbutrin and felt it was noteworthy that today she took a shower today which helped her feel better; patient agreed with behavioral activation Discussed insomnia and trazodone seems to work well enough (mirtazapine cause excessive sleepiness the next day) discussed panic attack and she agrees it might have been due to excessive worries rather than Wellbutrin (which she has tolerated for years in the past); just prior to panic attack, she was perseverating on never getting better, losing her therapy practice, the stigma of ECT defining her as a mental patient. Patient agreed to continue with Wellbutrin. Talked about behavioral activation further; talked about ECT and patient appreciated postponing ECT decision until next week and right now just focusing on medication management. Patient had trouble sleeping; discussed options and she agreed to start doxepin -Patient discussed challenges of depression, worried about losing her career as well as her identity. Patient shared about history, regrets, conflicted feelings over past decisions; Patient feels overwhelmed with being on a psychiatric unit though she also understands the need to treat her depression at this time 1/2 discussed panic attack and she agrees it might have been due to excessive worries rather than Wellbutrin (which she has tolerated for years in the past); just prior to panic attack, she was perseverating on never getting better, losing her therapy practice, the stigma of ECT defining her as a mental patient. Patient agreed to continue with Wellbutrin. Talked about behavioral activation further; talked about ECT and patient appreciated postponing ECT decision until next week and right now just focusing on medication management. Patient had trouble sleeping; discussed options and she agreed to start doxepin 08/23 Patient said she did sleep better last night with doxepin. She remains depressed. She says that she is anxious to point of being incapacitated which is depressing; she says she just wants to sleep all day and that she does not want to be in the hospital. She says she feels like she has given up. District Claims Manager discussed again behavioral activation and patient said she understands this and will try to push herself to do so. She again says I am not doing that well... Patient again thought that perhaps Wellbutrin was causing her to shake however she again agreed to continue with Wellbutrin, persuaded by the fact that she had been on this dose in the past and done well and that she maybe misinterpreting her shaking. Due to excessive anxiety she agreed to start clonazepam during the day; discussed and patient said she will use a low-dose so as not to be too tired -patient has put in a 3 day notice and is ambivalent about whether not she will remain on the unit for treatment; ambivalent about ECT 08/24/24 - riding out side effects of added medication- pending dc on 3 day 08/27 08/26 Patient reports that she does not feel like she is doing well. She does acknowledge that her depression is little better and says that she has an appetite, sees herself eating more and has gained 5 lb; she is also brushing her teeth and attending to ADLs more regularly. She remains isolated staying in her room with much anxiety and feels anxiety is overall worse. She wonders if as the depression clears up a bit, it has uncovered more of her anxiety. Patient also says that she feels like she is shakey for past 3 days Patient very much does not like being on the unit however she said she realizes she is not ready to go home, that she feels awful and retracted her 3 day notice; patient was tearful and doing so, saying she very much wanted to be at home and is deeply saddened that she can not restart her therapy practice; she says this dampening her mood further Discussed medication management. Discussed possibility of serotonin syndrome due to shakey feeling as she is on Lexapro, low-dose doxepin and Wellbutrin which could give some contribution. -Patient agrees to come off Lexapro since there was never a strong feeling that this was helpful. -She also agreed to try low-dose Zyprexa to help with anxiety written depression -She agrees to remain on Wellbutrin and instead get back on Paxil as both Paxil and Wellbutrin were highlighted as medications that she had done well on. -She really wants to stay on doxepin because it has been helping with sleep; hand sign writer agreed and will continue to monitor for serotonin syndrome (no hypertension, tachycardia; patient afebrile; although some tremor/shakiness, no hyperreflexia observed; no complaints of diarrhea or excessive salivation) 08/27 Patient continues to say that she is really bad though does also acknowledge that depression is little better and starting with Zyprexa, anxiety is a little better also. Patient says that she continues to have the shakes and demonstrates as she picks up a pitcher though at rest not observed by hand sign writer. Discussed medications and patient would like doxepin did be discontinued worried that perhaps it is contributing to her shaky feeling. Slept well last night and feels that Zyprexa will be enough for insomnia. She likes the idea of being on Paxil and having Lexapro discontinued. Remains isolated and in her room despite discussion about behavioral activation -hand sign writer agrees that it is prudent to hold off from ECT at this time and continue with medication management as patient is making incremental improvements 08/28 remains very depressed, isolates in bed; willing to get up and move when prompted. Increaed Paxil to 20mg; pt agrees -will lower clonazepam since sedating; dc AM zyprexa 08/30 Patient doing better today. She shower today for the 1st time in quite a while and attended a group. Patient up and walking out of her room with improved grooming. She agrees that depression and anxiety are both better and agrees with medication plan. Patient's sister present who discussed treatment plan and also agrees with holding off on ECT since patient seems to be improving on medications -1st day of any such improvement and patient will need to have several days of improved mood to determine that medications are effective 08/31 Patient remains overall better, agreeing that depression and anxiety are both better. Still feeling shaky the hand sign writer notices it seems tremor is only apparent when she is picking something up. Patient is out of her room more often and though she still does not like being on the unit at all, feels that her attitude is overall better. She rates herself a 5 or 6/10, 10 being her regular self. Discussed again medication regimen which will leave as is however hand sign writer will reach out to endocrine on Monday to discuss medication regimen and low TSH 09/01 remains overall brighter, with mood and anxiety improved. Patient has reported shaking this could be due to excess T3 Liothyronine; will discuss with endocrinology -patient asked about possible discharge and hand sign writer agrees that she continues to improve and if remains so, will start discussing discharge planning 09/02 Patient feeling much better than she has and rates herself a 6/10, 10 being her normal self. Patient feels that anxiety and depression both remain improved. Patient for the 1st time is asking for discharge to go home later this week feeling that enough has been accomplished, that she is doing overall better and ready to continue treatment as an outpatient. District Claims Manager discussed thyroid medication/symptoms with patient after having reviewed thyroid medication with referral agent Dr. Rojas. Dr. Medina recommends discontinuing Liothyronine as TSH is too low indicating excessive T3; this may also alleviate patient's experience of shakiness. Dr. Medina also agrees with having lowered Synthroid. Recommends monitoring free T4 every other day for couple days and then have outpatient PCP follow-up with TSH which will take 4 weeks to adjust. -patient asks to have discussion with [id number] regarding discharge but is hoping she can go this week. District Claims Manager agrees 09/03 pt reports feeling much better; she tells hand sign writer i showered, did my laundry eating, walking the esposito, making phone calls. She says shakes are less already. She says she feels ready to go home and agrees with this monday after talking with her sister. Patient with noticeably brighter affect. -Discussed again Endo recs, monitoring Free T4/TSH and she understands to f/u w/ PCP for TSH in 4 weeks. -hand sign writer discussed case with patient's family who agrees that she is doing much better and appropriate to return home with plans to DC this Saturday 09/02 Patient this morning had a bout of anxiety about going home, feeling like repairing her life is a daunting task. She started having worries about medications and how they would make her feel. Patient however was able to work through this and anxiety calmed down. She still intermittently feels overwhelmed with the idea of getting back to her regular life however she also remains feeling much better and safe and ready to go home. Discussed how this type of anxiety is expected and talked through some of the things that will be difficult for her when she returns. Patient continued to feel capable of navigating. Continued to discuss medication management. Patient showed her hands that are less shaky. Free T4: 1.12 -> 0.82 09/05: continue current tx plan. Plan: CV, 15 minute checks DC Lexapro Continue Paxil 30 mg daily Continue Zyprexa 2.5 mg qhs. for excessive anxiety mixed with depression Continue Wellbutrin to XL 150 mg DC doxepin 10 mg q.h.s. clonazepam 0.25 mg 0 900, 1700 for excessive anxiety Consider MRI-brain (per neuro; will wait for EEG results) EEG recs per neuro Collateral contacts Decrease Levothyroxine to 37.5 mg daily DISCONTINUE Liothyronine to 2.5 mg daily due to excessively low TSH per referral agent Dr. Medina Med trials when diagnostics are completed MOCA today 24 (due to depression??) Patient educated on: medication risk/benefits Reason for continued inpatient stay Substantial Risk for: med/psych decompensation Time Spent With Patient Time: Total time managing care of this patient today _20___ minutes.
[2024-09-05 20:00] VITALS: BP 93/64; PULSE 73; TEMP 36.1; O2SAT 99
[2024-09-05] MEDS: traZODone HCL 100 MG TABLET PO (20:57)
[2024-09-05] MEDS: OLANZapine 2.5 MG TABLET PO (20:58)
[2024-09-06] MEDS: Levothyroxine Sodium 25 MCG TABLET 37.5 MCG PO (07:17)
[2024-09-06 08:00] VITALS: RESP 18
[2024-09-06 08:20] LABS: Free T4 (Free Thyroxine) 0.87 ng/dL (0.71-1.85)
[2024-09-06] MEDS: buPROPion HCl XL 150 MG TAB.ER.24H PO (08:36)
[2024-09-06] MEDS: PARoxetine HCL 30 MG TABLET PO (08:36)
[2024-09-06] MEDS: Cholecalciferol (Vitamin D3) 25 MCG TABLET PO (08:36)
--- NOTE | 2024-09-06 11:04 | P.DS_ITS ---
DS: Providers Provider Date of Service: 09/06/24 Date of admission: 08/12/24 15:57 Date of discharge: 09/06/24 Primary care physician: Unknown Physician Attending physician on admission: Shadi Aguayo Consults: 08/20/24 16:20 Consult to Hospitalist Routine Comment: Consulting Provider: [facility] Hospitalists Reason For Exam: Risk Stratifcation for ECT Attending physician on discharge: Shadi Aguayo DS: Diagnosis Discharge Diagnosis (1) Recurrent major depression: Status: Acute (2) Adult failure to thrive: Status: Acute DS: Medications Discharge Medications Home Medications: Previous Rx's ?Medication ?Instructions ?Recorded bupropion HCl 150 mg 24 hr tablet, 150 mg PO DAILY 30 days #30 tabs 09/04/24 extended release cholecalciferol (vitamin D3) 25 25 mcg PO DAILY 30 days #30 tabs 09/06/24 mcg (1,000 unit) tablet clonazepam 0.5 mg tablet 0.25 mg (1/2 x 0.5 mg) PO BID PRN 09/06/24 panic type anxiety 30 days #60 tabs levothyroxine 75 mcg tablet 37.5 mcg (1/2 x 75 mcg) PO QAM 30 09/06/24 days #15 tabs olanzapine 2.5 mg tablet 2.5 mg PO BEDTIME 30 days #30 tabs 09/06/24 paroxetine HCl 30 mg tablet 30 mg PO DAILY 30 days #30 tabs 09/06/24 polyethylene glycol 3350 17 gram 17 g PO DAILY PRN Constipation 30 09/06/24 oral powder packet days #30 ea trazodone 100 mg tablet 100 mg PO BEDTIME PRN insomnia 30 09/06/24 days #30 tabs Mental Status Exam Mental Status Exam Narrative: Pt is alert and oriented; behavior is cooperative, friendly and calm; patient is not in distress; dressed in casual attire with adequate grooming and hygiene; mood is described as good and affect congruent, bright, calm; eye contact appropriate; Speech is normal rate, volume and prosody and not pressured; no psychomotor agitation/retardation present; thought process is organized and goal directed; Thought content is on discharge; otherwise pertinent to relevant topics and without any delusional content, paranoid ideations or grandiosity; denies any SI/HI. There is no evidence of perceptual disturbance. Patients insight and judgment much improved, fair and adequate Data Data Completed and Pending Completed studies during hospitalization [Text1]: 09/04/24 09/04/24 09/06/24 07:52 08:30 07:37 Hold Purple Top SEE NOTE Free T4 0.82 0.87 Imaging Diagnostic Imaging Impressions Brain MRI 08/13/24 12:40 IMPRESSION: 1. No acute intracranial abnormalities. 2. Chronic microangiopathy. 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 Pt reports depression, I don't do much, lie down, read a bit, I am 10 beats behind in technology , My sense of time is off, I feel like I am not in my body, I am oversensitive to hot and cold, appetite is poor, I used to keep going-working and watching series shows, I cannot do that any longer. Reports she is isolating from friends, fears driving, friends help her with shopping, planning, cleaning. She fears the subway and believes she is unable to live safely in [place] any longer; Reports first episode of depression in college, last year, daughter made a suicide attempt and pt's sx increased, I don't think I have recovered. Hospital course: Patient very depressed on admission, not attending to ADLs, eating very little, affect downcast and patient remained isolative and in bed. Numerous options were discussed including ECT. 08/20 assembly instructions writer, met with patient and her sister and [id number] to discuss histo ry of depression, medication management and possible ECT treatment. Patient reports that this is the worst episode of depression she has ever had including her previous hospitalization about a year and a half ago. After that last admission, Patient reports she was started on Paxil and Strattera and did quite well for the next 9-10 months, which family agrees. She is not sure why, but depression started to creep back in which continued until it became severe (no ADLs, not leaving house, family bringing her food and all of the other neurovegetative symptoms of depression other than SI). Patient reports she also did well on Wellbutrin XL 150 mg and Lexapro. 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 Discussed ECT, risks/potential side effects versus potential benefit. Calender Worker Helper agrees that it is prudent to 1st pursue medication management at this time while keeping ECT as an option, with which patient fully agrees. -switch Wellbutrin to XL 150 mg -will continue Lexapro 20 mg; QTC WNL and patient has no history of any cardiac issues so it remains an option to increase -will also consider restarting Strattera which patient said significantly helped her focus her thinking; Adderall/Ritalin also options -it is also possible to potentially combine Wellbutrin and Paxil which remains an option if patient remains only partially treated 08/21/24 Patient still quite depressed but says no problem with wellbutrin and felt it was noteworthy that today she took a shower today which helped her feel better; patient agreed with behavioral activation Discussed insomnia and trazodone seems to work well enough (mirtazapine cause excessive sleepiness the next day) discussed panic attack and she agrees it might have been due to excessive worries rather than Wellbutrin (which she has tolerated for years in the past); just prior to panic attack, she was perseverating on never getting better, losing her therapy practice, the stigma of ECT defining her as a mental patient. Patient agreed to continue with Wellbutrin. Talked about behavioral activation further; talked about ECT and patient appreciated postponing ECT decision until next week and right now just focusing on medication management. Patient had trouble sleeping; discussed options and she agreed to start doxepin -Patient discussed challenges of depression, worried about losing her career as well as her identity. Patient shared about history, regrets, conflicted feelings over past decisions; Patient feels overwhelmed with being on a psychiatric unit though she also understands the need to treat her depression at this time 1/2 discussed panic attack and she agrees it might have been due to excessive worries rather than Wellbutrin (which she has tolerated for years in the past); just prior to panic attack, she was perseverating on never getting better, losing her therapy practice, the stigma of ECT defining her as a mental patient. Patient agreed to continue with Wellbutrin. Talked about behavioral activation further; talked about ECT and patient appreciated postponing ECT decision until next week and right now just focusing on medication management. Patient had trouble sleeping; discussed options and she agreed to start doxepin 08/23 Patient said she did sleep better last night with doxepin. She remains depressed. She says that she is anxious to point of being incapacitated which is depressing; she says she just wants to sleep all day and that she does not want to be in the hospital. She says she feels like she has given up. Calender Worker Helper discussed again behavioral activation and patient said she understands this and will try to push herself to do so. She again says I am not doing that well... Patient again thought that perhaps Wellbutrin was causing her to shake however she again agreed to continue with Wellbutrin, persuaded by the fact that she had been on this dose in the past and done well and that she maybe misinterpreting her shaking. Due to excessive anxiety she agreed to start clonazepam during the day; discussed and patient said she will use a low-dose so as not to be too tired -patient has put in a 3 day notice and is ambivalent about whether not she will remain on the unit for treatment; ambivalent about ECT 08/24/24 - riding out side effects of added medication- pending dc on 3 day 08/27 08/26 Patient reports that she does not feel like she is doing well. She does acknowledge that her depression is little better and says that she has an appetite, sees herself eating more and has gained 5 lb; she is also brushing her teeth and attending to ADLs more regularly. She remains isolated staying in her room with much anxiety and feels anxiety is overall worse. She wonders if as the depression clears up a bit, it has uncovered more of her anxiety. Patient also says that she feels like she is shakey for past 3 days Patient very much does not like being on the unit however she said she realizes she is not ready to go home, that she feels awful and retracted her 3 day notice; patient was tearful and doing so, saying she very much wanted to be at home and is deeply saddened that she can not restart her therapy practice; she says this dampening her mood further Discussed medication management. Discussed possibility of serotonin syndrome due to shakey feeling as she is on Lexapro, low-dose doxepin and Wellbutrin which could give some contribution. -Patient agrees to come off Lexapro since there was never a strong feeling that this was helpful. -She also agreed to try low-dose Zyprexa to help with anxiety written depression -She agrees to remain on Wellbutrin and instead get back on Paxil as both Paxil and Wellbutrin were highlighted as medications that she had done well on. -She really wants to stay on doxepin because it has been helping with sleep; assembly instructions writer agreed and will continue to monitor for serotonin syndrome (no hypertension, tachycardia; patient afebrile; although some tremor/shakiness, no hyperreflexia observed; no complaints of diarrhea or excessive salivation) 08/27 Patient continues to say that she is really bad though does also acknowledge that depression is little better and starting with Zyprexa, anxiety is a little better also. Patient says that she continues to have the shakes and demonstrates as she picks up a pitcher though at rest not observed by assembly instructions writer. Discussed medications and patient would like doxepin did be discontinued worried that perhaps it is contributing to her shaky feeling. Slept well last night and feels that Zyprexa will be enough for insomnia. She likes the idea of being on Paxil and having Lexapro discontinued. Remains isolated and in her room despite discussion about behavioral activation -assembly instructions writer agrees that it is prudent to hold off from ECT at this time and continue with medication management as patient is making incremental improvements -will lower clonazepam since sedating; dc AM zyprexa 08/30 Patient doing better today. She shower today for the 1st time in quite a while and attended a group. Patient up and walking out of her room with improved grooming. She agrees that depression and anxiety are both better and agrees with medication plan. Patient's sister present who discussed treatment plan and also agrees with holding off on ECT since patient seems to be improving on medications -1st day of any such improvement and patient will need to have several days of improved mood to determine that medications are effective 08/31 Patient remains overall better, agreeing that depression and anxiety are both better. Still feeling shaky the assembly instructions writer notices it seems tremor is only apparent when she is picking something up. Patient is out of her room more often and though she still does not like being on the unit at all, feels that her attitude is overall better. She rates herself a 5 or 6/10, 10 being her regular self. Discussed again medication regimen which will leave as is however assembly instructions writer will reach out to endocrine on Monday to discuss medication regimen and low TSH 09/01 remains overall brighter, with mood and anxiety improved. Patient has reported shaking this could be due to excess T3 Liothyronine; will discuss with endocrinology -patient asked about possible discharge and assembly instructions writer agrees that she continues to improve and if remains so, will start discussing discharge planning 09/02 Patient feeling much better than she has and rates herself a 6/10, 10 being her normal self. Patient feels that anxiety and depression both remain improved. Patient for the 1st time is asking for discharge to go home later this week feeling that enough has been accomplished, that she is doing overall better and ready to continue treatment as an outpatient. Calender Worker Helper discussed thyroid medication/symptoms with patient after having reviewed thyroid medication with anglesmith helper Dr. Rojas. Dr. Medina recommends disconti nuing Liothyronine as TSH is too low indicating excessive T3; this may also alleviate patient's experience of shakiness. Dr. Medina also agrees with having lowered Synthroid. Recommends monitoring free T4 every other day for couple days and then have outpatient PCP follow-up with TSH which will take 4 weeks to adjust. -patient asks to have discussion with [id number] regarding discharge b ut is hoping she can go this week. Calender Worker Helper agrees 09/03 pt reports feeling much better; she tells assembly instructions writer i showered, did my laundry eating, walking the esposito, making phone calls. She says shakes are less already. She says she feels ready to go home and agrees with this monday after talking with her sister. Patient with noticeably brighter affect. -Discussed again Endo recs, monitoring Free T4/TSH and she understands to f/u w/ PCP for TSH in 4 weeks. -assembly instructions writer discussed case with patient's family who agrees that she is doing much better and appropriate to return home with plans to DC this Monday 09/04 Patient this morning had a bout of anxiety about going home, feeling like repairing her life is a daunting task. She started having worries about medications and how they would make her feel. Patient however was able to work through this and anxiety calmed down. She still intermittently feels overwhelmed with the idea of getting back to her regular life however she also remains feeling much better and safe and ready to go home. Discussed how this type of anxiety is expected and talked through some of the things that will be difficult for her when she returns. Patient continued to feel capable of navigating. Continued to discuss medication management. Patient showed her hands that are less shaky. Free T4: 1.12 -> 0.82 On day of discharge, patient remained overall doing much better, reporting significant decrease in depression and anxiety though they did remain. Patient attending to ADLs, eating and sleeping well, no medication side effects and with a consistently, noticeably brighter affect. Patient felt good about discharge, looking forward to returning home. She had a plan for starting to rebuild and get back to work. Discussed medications, discussed thyroid treatment and patient understood and felt good about continuing on current regimen and following up with her outpatient providers. Calender Worker Helper called her son which was patient's request; also called outpatient psychiatrist and left voicemail regarding treatment plan. Patient's sister and [id number] will be driving her home today. She is not in imminent risk for harm to self or others appropriate to return to the community for treatment. Her request for discharge honored. Medications: Discontinued Lexapro Started Paxil 30 mg daily Started Wellbutrin XL 150 mg daily Started Zyprexa 2.5 mg q.h.s. Decrease Levothyroxine to 37.5 mg daily DISCONTINUEd Liothyronine to 2.5 mg daily due to excessively low TSH per anglesmith helper Dr. Medina Status at Discharge Functional status at discharge: independent ambulation Overall status at discharge: patient is progressing back to baseline Time Spent with Patient Time attestation: Total time managing care of this patient today _40___ minutes. Time spent: Greater than 30 minutes Specific discharge activities: Met with patient; discussed with team; charting, prescriptions, calling outpatient provider. 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 Higgins, your records were not forwarded. If you would like them to be sent in the future please call the hospital and ask to be connected to medical records. ) Discharge Medications: New bupropion HCl 150 mg Tablet Extended Release 24 Hr 150 mg PO DAILY 30 Days Qty: 30 0RF clonazepam 0.5 mg Tablet 0.25 mg PO BID PRN (Reason: panic type anxiety) 30 Days Qty: 60 0RF olanzapine 2.5 mg Tablet 2.5 mg PO BEDTIME 30 Days Qty: 30 0RF paroxetine HCl 30 mg Tablet 30 mg PO DAILY 30 Days Qty: 30 0RF polyethylene glycol 3350 17 gram Powder In Packet 17 g PO DAILY PRN (Reason: Constipation) 30 Days Qty: 30 0RF cholecalciferol (vitamin D3) 25 mcg (1,000 unit) Tablet 25 mcg PO DAILY 30 Days Qty: 30 0RF Changed levothyroxine 75 mcg tablet 37.5 mcg PO QAM 30 Days Qty: 15 0RF trazodone 100 mg tablet 100 mg PO BEDTIME PRN (Reason: insomnia) 30 Days Qty: 30 0RF Discontinued liothyronine 5 mcg tablet 5 mcg PO DAILY escitalopram oxalate 20 mg tablet 20 mg PO DAILY Discharge Orders: Discharge Order (Routine); Ordered 09/06/24 Ordered By: Shadi Aguayo Diet: Regular diet Activity on Discharge: As tolerated Stand Alone Forms: Patient Portal Discharge page, Community Support Print Language: [place] Other Ambulatory Orders: TSH reflex Free T4 (Routine) Timeframe: [id number] Facility: [facility] - Location: Laboratory Ordered By: Shadi Aguayo Care Plan Goals: Maintain mood and safe behaviors Take medications as prescribed Practice coping skills Continue with outpatient providers and reach out to them as needed Health Concerns: Mood stability and behaviors Hypothyroid, with mild hyperthyroidism due to Liothyronine (which is now discontinued) Plan of Treatment: Follow up with your PCP, psychiatric provider and other outpatient providers regarding above concerns Take medications as prescribed Regarding hypothyroid: Get TSH with free T4 lab in 4 weeks (2/14/25) Assessment: Risk assessment at time of discharge:? Patient was interviewed prior to discharge and found to be fully oriented and without any SI or HI. Patient has improved insight and judgment and wants to continue treatment. Patient is not in imminent risk of harm to self or others and has a safety plan that includes presenting to the closest ER or calling 911 if feeling unsafe.? Patient has been observed closely by nursing and unit staff throughout admission; patient has not engaged in any behaviors that suggest dangerousness to self or others and has demonstrated appropriate behaviors and impulse control Discharge Date/Time: 09/06/24 11:43
== END 2024-09-06 11:43 | disposition home or self-care (01) | DRG 885 ==
LOC: HO.ED 12:48 → HO.PM5 16:09
PROVIDERS: Physician Assistant; Psychiatry & Neurology Psychiatry; Admitting Provider Clinical Nurse Specialist Psychiatric/Mental Health, Adult; Emergency Provider Emergency Medicine; Visit Provider Clinical Nurse Specialist Psychiatric/Mental Health, Adult
DX: F33.2 Major depressive disorder, recurrent severe without psychotic features (principal); E03.9 Hypothyroidism, unspecified; R62.7 Adult failure to thrive; Z68.22 Body mass index [BMI] 22.0-22.9, adult; Z23 Encounter for immunization; Z79.890 Hormone replacement therapy; Z79.899 Other long term (current) drug therapy
CPT/HCPCS: 36415; 70551; 80053; 80061; 80307; 81001; 82306; 82607; 82746; 83036; 83520; 83735; 84439; 84443; 85025; 90656; 93005; 99285; S9485

== ENCOUNTER → 2024-08-12 11:54 | Outpatient (BNV) | payer MEDICARE, BC, SELFPAY | PROVIDERS: Admitting Provider Clinical Nurse Specialist Psychiatric/Mental Health, Adult; Emergency Provider Emergency Medicine; Visit Provider Internal Medicine Cardiovascular Disease | DX: R94.31 Abnormal electrocardiogram [ECG] [EKG] (principal) | CPT/HCPCS: 93010 ==

== ENCOUNTER → 2024-08-12 15:57 | Outpatient (BNV) | payer MEDICARE, BC, SELFPAY | PROVIDERS: Admitting Provider Clinical Nurse Specialist Psychiatric/Mental Health, Adult; Emergency Provider Emergency Medicine; Visit Provider Physician Assistant | DX: E03.9 Hypothyroidism, unspecified (principal); F33.9 Major depressive disorder, recurrent, unspecified | CPT/HCPCS: 99222 ==

== ENCOUNTER → 2024-08-12 15:57 | Outpatient (BNV) | payer MEDICARE, BC, SELFPAY | PROVIDERS: Admitting Provider Clinical Nurse Specialist Psychiatric/Mental Health, Adult; Emergency Provider Emergency Medicine; Visit Provider Clinical Nurse Specialist Psychiatric/Mental Health, Adult | DX: F33.2 Major depressive disorder, recurrent severe without psychotic features (principal); R62.7 Adult failure to thrive | CPT/HCPCS: 90792; 99231; 99232 ==